=== PATIENT | male | born 1940 | race Caucasian/White ===

== ENCOUNTER 2019-11-26 07:25 | Outpatient (REF) | payer MEDICARE, SELFPAY ==
[2019-11-26 11:09] LABS: MANUAL DIFF FLAG NO
[2019-11-26 11:23] LABS: Basophils Absolute Auto 0.1 X10*3/uL (0.0-0.2); Basophils Percent Auto 0.6 % (0-2); Eosinophils Absolute Auto 0.1 X10*3/uL (0.0-0.4); Eosinophils Percent Auto 1.5 % (0-4); Hematocrit 37.4 % (42-52); Hemoglobin 12.5 g/dl (14.0-18.0); Imm Gran Abs Auto 0.04 X10*3/uL (0.00-0.03); Imm Gran Pct Auto 0.4 % (0.0-0.4); Lymphocytes Absolute Auto 2.3 X10*3/uL (1.2-4.9); Lymphocytes Percent Auto 24.7 % (20-40); Mean Corpuscular HGB Conc 33.4 g/dl (31.0-36.0); Mean Corpuscular Hemoglobin 32.9 pg (27.0-33.0); Mean Corpuscular Volume 98.4 fL (80-98); Mean Platelet Volume 10.7 fL (9.4-12.4); Monocytes Absolute Auto 0.9 X10*3/uL (0.1-1.2); Monocytes Percent Auto 9.4 % (2-11); Neutrophils Absolute Auto 5.9 X10*3/uL (2.0-8.3); Neutrophils Percent Auto 63.4 % (45-73); Platelet Count 366 X10*3/uL (160-400); Red Cell Distribution Width 13.2 % (11.0-16.0); White Blood Count 9.3 X10*3/uL (4.8-10.8)
[2019-11-26 11:37] LABS: Estimated Average Glucose 140 mg/dL; Hemoglobin A1c % 6.5 %
[2019-11-26 11:48] LABS: Alanine Aminotransferase 8 U/L (0-40); Albumin Level 4.2 g/dL (3.5-5.0); Alkaline Phosphatase 93 U/L (39-117); Anion Gap 13 (12-20); Aspartate Amino Transferase 15 U/L (5-37); Bilirubin Total 0.7 mg/dL (0.0-1.0); Blood Urea Nitrogen 30 mg/dL (9-16); Carbon Dioxide 25 mmol/L (22-29); Chloride 106 mmol/L (96-108); Cholesterol 102 mg/dL; Estimated Glomerular Filt Rate 47; Glucose Fasting 118 mg/dL (60-99); HDL Cholesterol 33 mg/dL; LDL Cholesterol Calculated 39 mg/dl; Magnesium 1.9 mg/dL (1.6-2.6); Potassium 4.4 mmol/l (3.3-5.1); Sodium 140 mmol/L (135-145); Total Protein 7.4 g/dL (6.5-8.0); Triglycerides 154 mg/dL; Uric Acid 5.1 mg/dL (3.4-7.0)
[2019-11-26 11:50] LABS: Glucose Urine UA NEG (NEG); Leukocyte Esterase Urine NEG (NEG); Nitrite Urine NEG (NEG); Specific Gravity - Urine 1.025 (1.005-1.025); Urine Blood NEG (NEG); Urine Ketones NEG (NEG); Urine Protein NEG (NEG-TRACE)
[2019-11-26 11:55] LABS: Appearance Urine CLEAR; Color Urine YELLOW; Thyroid Stimulating Hormone 2.05 mIU/mL (0.32-4.0); Vitamin D 25-OH Total 23.3 ng/mL (>30)
[2019-11-26 12:07] LABS: Creatinine Urine 125.35 mg/dL; Microalbum/Creatinine Ratio Ur 44.6 ug/mg cr
[2019-11-26 12:08] LABS: Creatinine Urine 125.49 mg/dL; Total Protein Urine Random 13 mg/dL (<12)
[2019-11-26 12:17] LABS: RBC Urine 0-2 /HPF (0); Squamous Epithelial Cell Urine 1+ /LPF; WBC Urine 0-2 /HPF (0-4)
== END 2019-11-26 07:26 | disposition home or self-care (01) ==
LOC: HO.HMGCLDS 07:25
PROVIDERS: PCP Internal Medicine; Visit Provider Internal Medicine
DX: I12.9 Hypertensive chronic kidney disease with stage 1 through stage 4 chronic kidney disease, or unspecified chronic kidney disease (principal); N18.30 Chronic kidney disease, stage 3 unspecified; R73.01 Impaired fasting glucose; E78.00 Pure hypercholesterolemia, unspecified; E55.9 Vitamin D deficiency, unspecified; E79.0 Hyperuricemia without signs of inflammatory arthritis and tophaceous disease
CPT/HCPCS: 36415; 80053; 80061; 81003; 81015; 82043; 82306; 83036; 83735; 84156; 84443; 84550; 85025

== ENCOUNTER 2020-03-12 10:57 | Outpatient (REF) | payer MEDICARE, SELFPAY ==
[2020-03-12 13:54] LABS: MANUAL DIFF FLAG NO
[2020-03-12 14:12] LABS: Basophils Absolute Auto 0.1 X10*3/uL (0.0-0.2); Basophils Percent Auto 0.6 % (0-2); Eosinophils Absolute Auto 0.1 X10*3/uL (0.0-0.4); Eosinophils Percent Auto 1.4 % (0-4); Hematocrit 38.4 % (42-52); Hemoglobin 12.7 g/dl (14.0-18.0); Imm Gran Abs Auto 0.03 X10*3/uL (0.00-0.03); Imm Gran Pct Auto 0.3 % (0.0-0.4); Lymphocytes Absolute Auto 2.3 X10*3/uL (1.2-4.9); Lymphocytes Percent Auto 26.1 % (20-40); Mean Corpuscular HGB Conc 33.1 g/dl (31.0-36.0); Mean Corpuscular Hemoglobin 32.2 pg (27.0-33.0); Mean Corpuscular Volume 97.5 fL (80-98); Mean Platelet Volume 10.6 fL (9.4-12.4); Monocytes Absolute Auto 0.8 X10*3/uL (0.1-1.2); Monocytes Percent Auto 8.7 % (2-11); Neutrophils Absolute Auto 5.5 X10*3/uL (2.0-8.3); Neutrophils Percent Auto 62.9 % (45-73); Platelet Count 331 X10*3/uL (160-400); Red Blood Count 3.94 X10*6/uL (4.60-5.80); Red Cell Distribution Width 13.1 % (11.0-16.0); White Blood Count 8.7 X10*3/uL (4.8-10.8)
[2020-03-12 14:22] LABS: Estimated Average Glucose 134 mg/dL; Hemoglobin A1c % 6.3 %
[2020-03-12 14:36] LABS: Alanine Aminotransferase 8 U/L (0-40); Albumin Level 4.1 g/dL (3.5-5.0); Alkaline Phosphatase 93 U/L (39-117); Anion Gap 15 (12-20); Aspartate Amino Transferase 16 U/L (5-37); Bilirubin Total 0.8 mg/dL (0.0-1.0); Blood Urea Nitrogen 24 mg/dL (9-16); Calcium 8.8 mg/dL (8.4-10.2); Carbon Dioxide 24 mmol/L (22-29); Chloride 106 mmol/L (96-108); Cholesterol 116 mg/dL; Estimated Glomerular Filt Rate 52; Glucose Fasting 101 mg/dL (60-99); HDL Cholesterol 35 mg/dL; LDL Cholesterol Calculated 58 mg/dl; Potassium 4.6 mmol/L (3.3-5.1); Sodium 140 mmol/L (135-145); Total Protein 7.4 g/dL (6.5-8.0); Triglycerides 119 mg/dL
[2020-03-12 14:48] LABS: Creatinine Urine 190.57 mg/dL
== END 2020-03-12 10:58 | disposition home or self-care (01) ==
LOC: HO.HMGCLDS 10:57
PROVIDERS: PCP Internal Medicine; Visit Provider Internal Medicine
DX: I10 Essential (primary) hypertension (principal); E78.00 Pure hypercholesterolemia, unspecified; R73.01 Impaired fasting glucose
CPT/HCPCS: 36415; 80053; 80061; 82043; 83036; 85025

== ENCOUNTER 2020-04-08 09:15 | Outpatient (REF) | payer MEDICARE, SELFPAY ==
[2020-04-08 11:18] LABS: MANUAL DIFF FLAG NO
[2020-04-08 11:41] LABS: Basophils Absolute Auto 0.1 X10*3/uL (0.0-0.2); Basophils Percent Auto 0.6 % (0-2); Eosinophils Absolute Auto 0.1 X10*3/uL (0.0-0.4); Eosinophils Percent Auto 1.4 % (0-4); Hematocrit 39.5 % (42-52); Hemoglobin 12.9 g/dl (14.0-18.0); Imm Gran Abs Auto 0.04 X10*3/uL (0.00-0.03); Imm Gran Pct Auto 0.4 % (0.0-0.4); Mean Corpuscular HGB Conc 32.7 g/dl (31.0-36.0); Mean Corpuscular Hemoglobin 31.7 pg (27.0-33.0); Mean Corpuscular Volume 97.1 fL (80-98); Mean Platelet Volume 10.4 fL (9.4-12.4); Monocytes Absolute Auto 0.8 X10*3/uL (0.1-1.2); Monocytes Percent Auto 8.3 % (2-11); Neutrophils Absolute Auto 6.9 X10*3/uL (2.0-8.3); Neutrophils Percent Auto 69.3 % (45-73); Platelet Count 357 X10*3/uL (160-400); Red Blood Count 4.07 X10*6/uL (4.60-5.80); Red Cell Distribution Width 13.2 % (11.0-16.0)
[2020-04-08 11:58] LABS: Albumin Level 4.2 g/dL (3.5-5.0); Anion Gap 13 (12-20); Blood Urea Nitrogen 21 mg/dL (9-16); Carbon Dioxide 27 mmol/L (22-29); Chloride 106 mmol/L (96-108); Estimated Glomerular Filt Rate 47; Magnesium 2.3 mg/dL (1.6-2.6); Phosphorus 2.6 mg/dL (2.7-4.5); Potassium 4.5 mmol/L (3.3-5.1); Sodium 141 mmol/L (135-145)
[2020-04-08 12:08] LABS: Vitamin D 25-OH Total 26.7 ng/mL (>30)
[2020-04-08 12:37] LABS: Glucose Urine UA NEG (NEG); Leukocyte Esterase Urine NEG (NEG); Nitrite Urine NEG (NEG); Urine Blood NEG (NEG); Urine Ketones NEG (NEG); Urine Protein 1+ MG/DL (NEG-TRACE)
[2020-04-08 12:40] LABS: Renal w Reflex Lab Use Only Order verified
[2020-04-08 12:41] LABS: Appearance Urine CLEAR; Color Urine YELLOW
[2020-04-08 12:43] LABS: Renal w Reflex-LAB USE ONLY Order Verified
[2020-04-08 12:58] LABS: RBC Urine 0-2 /HPF (0); Squamous Epithelial Cell Urine 2+ /LPF; WBC Urine 0 /HPF (0-4)
[2020-04-08 13:05] LABS: Creatinine Urine 109.07 mg/dL; Microalbum/Creatinine Ratio Ur 238.3 ug/mg cr; Protein/Creatinine Ratio, Ur 0.37 (<0.2); Total Protein Urine Random 40 mg/dL (<12)
[2020-04-10 12:01] LABS: Calcium (PTHI) 9.5 mg/dL (8.6-10.3); PTHI 85 pg/mL (14-64)
[2020-04-10 14:51] LABS: IgA 123 mg/dL (70-320); IgG 1874 mg/dL (600-1540); IgM 87 mg/dL (50-300)
[2020-04-10 16:02] LABS: Kappa, Serum 520 mg/dL (176-443); Kappa/Lambda Ratio, Serum 5.98 (1.29-2.55); Lambda, Serum 87 mg/dL (91-240)
== END 2020-04-08 09:16 | disposition home or self-care (01) ==
LOC: HO.HMGCLDS 09:15
PROVIDERS: PCP Internal Medicine; Visit Provider Internal Medicine Nephrology
DX: I12.9 Hypertensive chronic kidney disease with stage 1 through stage 4 chronic kidney disease, or unspecified chronic kidney disease (principal); N18.30 Chronic kidney disease, stage 3 unspecified; N28.9 Disorder of kidney and ureter, unspecified; R80.9 Proteinuria, unspecified; R73.01 Impaired fasting glucose; D64.9 Anemia, unspecified; E78.5 Hyperlipidemia, unspecified
CPT/HCPCS: 36415; 80051; 81001; 82040; 82043; 82306; 82310; 82565; 82784; 83735; 83883; 83970; 84100; 84156; 84520; 85025; 86334

== ENCOUNTER 2020-12-01 09:33 | Outpatient (REF) | payer MEDICARE, SELFPAY ==
[2020-12-01 11:27] LABS: MANUAL DIFF FLAG NO
[2020-12-01 11:37] LABS: Basophils Absolute Auto 0.1 X10*3/uL (0.0-0.2); Basophils Percent Auto 0.5 % (0-2); Eosinophils Absolute Auto 0.1 X10*3/uL (0.0-0.4); Eosinophils Percent Auto 1.5 % (0-4); Hematocrit 39.9 % (42-52); Hemoglobin 13.4 g/dl (14.0-18.0); Imm Gran Abs Auto 0.04 X10*3/uL (0.00-0.03); Imm Gran Pct Auto 0.4 % (0.0-0.4); Lymphocytes Absolute Auto 1.9 X10*3/uL (1.2-4.9); Lymphocytes Percent Auto 20.5 % (20-40); Mean Corpuscular HGB Conc 33.6 g/dl (31.0-36.0); Mean Corpuscular Hemoglobin 32.2 pg (27.0-33.0); Mean Corpuscular Volume 95.9 fL (80-98); Mean Platelet Volume 10.4 fL (9.4-12.4); Monocytes Absolute Auto 0.7 X10*3/uL (0.1-1.2); Monocytes Percent Auto 7.9 % (2-11); Neutrophils Absolute Auto 6.3 X10*3/uL (2.0-8.3); Neutrophils Percent Auto 69.2 % (45-73); Platelet Count 337 X10*3/uL (160-400); Red Blood Count 4.16 X10*6/uL (4.60-5.80); White Blood Count 9.2 X10*3/uL (4.8-10.8)
[2020-12-01 11:53] LABS: Albumin Level 4.1 g/dL (3.5-5.0); Anion Gap 13 (12-20); Blood Urea Nitrogen 23 mg/dL (9-16); Calcium 9.5 mg/dL (8.4-10.2); Carbon Dioxide 26 mmol/L (22-29); Chloride 105 mmol/L (96-108); Estimated Glomerular Filt Rate 46; Magnesium 2.1 mg/dL (1.6-2.6); Phosphorus 3.1 mg/dL (2.7-4.5); Potassium 5.2 mmol/L (3.3-5.1); Sodium 139 mmol/L (135-145)
[2020-12-01 11:56] LABS: Estimated Average Glucose 131 mg/dL; Hemoglobin A1c % 6.2 %
[2020-12-01 12:02] LABS: Alanine Aminotransferase 8 U/L (0-40); Albumin Level 4.1 g/dL (3.5-5.0); Alkaline Phosphatase 89 U/L (39-117); Anion Gap 12 (12-20); Aspartate Amino Transferase 15 U/L (5-37); Bilirubin Total 0.7 mg/dL (0.0-1.0); Blood Urea Nitrogen 23 mg/dL (9-16); Calcium 9.4 mg/dL (8.4-10.2); Carbon Dioxide 25 mmol/L (22-29); Chloride 106 mmol/L (96-108); Cholesterol 114 mg/dL; Estimated Glomerular Filt Rate 47; Glucose Fasting 112 mg/dL (60-99); HDL Cholesterol 34 mg/dL; LDL Cholesterol Calculated 58 mg/dl; Potassium 4.8 mmol/L (3.3-5.1); Sodium 138 mmol/L (135-145); Total Protein 7.6 g/dL (6.5-8.0); Triglycerides 110 mg/dL; Uric Acid 5.5 mg/dL (3.4-7.0)
[2020-12-01 12:19] LABS: Creatinine Urine 134.86 mg/dL; Microalbum/Creatinine Ratio Ur 252.1 ug/mg cr; Protein/Creatinine Ratio, Ur 0.37 (<0.2); Total Protein Urine Random 50 mg/dL (<12)
[2020-12-01 12:22] LABS: Vitamin D 25-OH Total 30.5 ng/mL (>30)
[2020-12-01 12:28] LABS: Thyroid Stimulating Hormone 2.21 uIU/mL (0.32-4.0)
[2020-12-02 12:46] LABS: PES - Abn Protein Band 1 0.8 g/dL (NONE DETECTED); PES-Abn Protein Band 2 0.5 g/dL (NONE DETECTED); Prot Elec - Albumin 4.2 g/dL (3.8-4.8); Prot Elec - Alpha1 0.3 g/dL (0.2-0.3); Prot Elec - Alpha2 0.8 g/dL (0.5-0.9); Prot Elec - Beta 1 0.5 g/dL (0.4-0.6); Prot Elec - Beta 2 0.3 g/dL (0.2-0.5); Prot Elec - Gamma 1.9 g/dL (0.8-1.7)
[2020-12-02 14:31] LABS: Calcium (PTHI) 9.3 mg/dL (8.6-10.3); PTHI 101 pg/mL (14-64)
[2020-12-16 01:42] LABS: Kappa, Serum 525 mg/dL (176-443); Kappa/Lambda Ratio, Serum 4.53 (1.29-2.55); Lambda, Serum 116 mg/dL (91-240)
== END 2020-12-01 09:34 | disposition home or self-care (01) ==
LOC: HO.HMGCLDS 09:33
PROVIDERS: PCP Internal Medicine; Visit Provider Internal Medicine Nephrology
DX: E79.0 Hyperuricemia without signs of inflammatory arthritis and tophaceous disease (principal); D47.2 Monoclonal gammopathy; R73.01 Impaired fasting glucose; I12.9 Hypertensive chronic kidney disease with stage 1 through stage 4 chronic kidney disease, or unspecified chronic kidney disease; N18.31 Chronic kidney disease, stage 3a; N20.0 Calculus of kidney; N25.0 Renal osteodystrophy; R80.1 Persistent proteinuria, unspecified
CPT/HCPCS: 36415; 80051; 80053; 80061; 81001; 82040; 82043; 82306; 82310; 82565; 83036; 83735; 83883; 83970; 84100; 84156; 84165; 84443; 84520; 84550; 85025; 87086

== ENCOUNTER 2021-07-20 06:55 | Outpatient (REF) | payer MEDICARE, SELFPAY ==
[2021-07-20 13:04] LABS: Anion Gap 12 (12-20); Blood Urea Nitrogen 23 mg/dL (9-16); Calcium 9.2 mg/dL (8.4-10.2); Carbon Dioxide 26 mmol/L (22-29); Chloride 105 mmol/L (96-108); Estimated Glomerular Filt Rate 50; Glucose Random 126 mg/dL (60-115); Potassium 4.7 mmol/L (3.3-5.1); Sodium 138 mmol/L (135-145)
[2021-07-20 13:18] LABS: Estimated Average Glucose 140 mg/dL; Hemoglobin A1c % 6.5 %
== END 2021-07-20 06:56 | disposition home or self-care (01) ==
LOC: HO.HMGCLDS 06:55
PROVIDERS: Visit Provider Internal Medicine
DX: R73.01 Impaired fasting glucose (principal); I10 Essential (primary) hypertension
CPT/HCPCS: 36415; 80048; 83036

== ENCOUNTER 2021-12-14 07:19 | Outpatient (REF) | payer MEDICARE, SELFPAY ==
[2021-12-14 11:22] LABS: Appearance Urine Clear; Color Urine Yellow; Glucose Urine UA Negative (Negative); Leukocyte Esterase Urine Negative (Negative); MANUAL DIFF FLAG NO; Nitrite Urine Negative (Negative); PH 5.5 (5.0-9.0); UMIC TRIGGER UA YES; Urine Blood Negative (Negative); Urine Ketones Negative (Negative); Urine Protein 30 (1+) mg/dL (Neg-Trace)
[2021-12-14 11:24] LABS: Bacteria Urine None Seen (None Seen); Hyaline Casts Urine 0-2 /LPF (0-2); RBC Urine 0-2 /HPF (0-2); Squamous Epithelial Cell Urine 0-2 /HPF (0-2); WBC Urine 0-5 /HPF (0-5)
[2021-12-14 11:28] LABS: Basophils Absolute Auto 0.1 X10*3/uL (0.0-0.2); Basophils Percent Auto 0.6 % (0-2); Eosinophils Absolute Auto 0.1 X10*3/uL (0.0-0.4); Eosinophils Percent Auto 1.6 % (0-4); Hematocrit 38.4 % (42.0-52.0); Hemoglobin 12.9 g/dl (14.0-18.0); Imm Gran Abs Auto 0.03 X10*3/uL (0.00-0.03); Imm Gran Pct Auto 0.4 % (0.0-0.4); Mean Corpuscular HGB Conc 33.6 g/dl (31.0-36.0); Mean Corpuscular Hemoglobin 32.8 pg (27.0-33.0); Mean Corpuscular Volume 97.7 fL (80.0-98.0); Mean Platelet Volume 10.1 fL (9.4-12.4); Monocytes Absolute Auto 0.8 X10*3/uL (0.1-1.2); Monocytes Percent Auto 9.2 % (2-11); Neutrophils Absolute Auto 5.6 x10*3/uL (2.0-8.3); Neutrophils Percent Auto 65.2 % (45-73); Platelet Count 358 X10*3/uL (160-400); Red Blood Count 3.93 X10*6/uL (4.60-5.80); White Blood Count 8.6 X10*3/uL (4.8-10.8)
[2021-12-14 12:02] LABS: Creatinine Urine 135.06 mg/dL; Microalbum/Creatinine Ratio Ur 133.2 ug/mg cr; Protein/Creatinine Ratio, Ur 0.21 (<0.2); Total Protein Urine Random 29 mg/dL (<12)
[2021-12-14 12:22] LABS: Alanine Aminotransferase 9 U/L (0-40); Albumin Level 4.1 g/dL (3.5-5.0); Alkaline Phosphatase 90 U/L (39-117); Anion Gap 16 (12-20); Aspartate Amino Transferase 14 U/L (5-37); Blood Urea Nitrogen 24 mg/dL (9-16); Calcium 9.2 mg/dL (8.4-10.2); Carbon Dioxide 22 mmol/L (22-29); Chloride 106 mmol/L (96-108); Cholesterol 100 mg/dL; Estimated Glomerular Filt Rate 43; Glucose Random 116 mg/dL (60-115); HDL Cholesterol 33 mg/dL; LDL Cholesterol Calculated 44 mg/dl; Potassium 4.6 mmol/L (3.3-5.1); Sodium 139 mmol/L (135-145); Total Protein 7.3 g/dL (6.5-8.0); Triglycerides 119 mg/dL
[2021-12-14 12:28] LABS: Estimated Average Glucose 143 mg/dL; Free T4 (Free Thyroxine) 1.15 ng/dL (0.71-1.85); Hemoglobin A1c % 6.6 %; Thyroid Stimulating Hormone 1.82 uIU/mL (0.32-4.0)
== END 2021-12-14 07:20 | disposition home or self-care (01) ==
LOC: HO.HMGCLDS 07:19
PROVIDERS: PCP Internal Medicine; Visit Provider Internal Medicine
DX: E78.00 Pure hypercholesterolemia, unspecified (principal); I10 Essential (primary) hypertension; R73.01 Impaired fasting glucose
CPT/HCPCS: 36415; 80053; 80061; 81001; 82043; 83036; 84156; 84439; 84443; 85025

== ENCOUNTER 2022-01-11 09:36 | Outpatient (REF) | payer MEDICARE, SELFPAY ==
[2022-01-11 11:24] LABS: MANUAL DIFF FLAG NO
[2022-01-11 11:38] LABS: Basophils Absolute Auto 0.1 X10*3/uL (0.0-0.2); Basophils Percent Auto 0.7 % (0-2); Eosinophils Absolute Auto 0.1 X10*3/uL (0.0-0.4); Eosinophils Percent Auto 1.3 % (0-4); Hematocrit 39.7 % (42.0-52.0); Imm Gran Abs Auto 0.04 X10*3/uL (0.00-0.03); Imm Gran Pct Auto 0.4 % (0.0-0.4); Lymphocytes Absolute Auto 2.3 X10*3/uL (1.2-4.9); Lymphocytes Percent Auto 25.2 % (20-40); Mean Corpuscular HGB Conc 32.7 g/dl (31.0-36.0); Mean Corpuscular Hemoglobin 32.3 pg (27.0-33.0); Mean Corpuscular Volume 98.8 fL (80.0-98.0); Mean Platelet Volume 10.5 fL (9.4-12.4); Monocytes Absolute Auto 0.8 X10*3/uL (0.1-1.2); Monocytes Percent Auto 8.5 % (2-11); Neutrophils Absolute Auto 5.8 x10*3/uL (2.0-8.3); Neutrophils Percent Auto 63.9 % (45-73); Platelet Count 372 X10*3/uL (160-400); Red Blood Count 4.02 X10*6/uL (4.60-5.80); Red Cell Distribution Width 13.1 % (11.0-16.0); White Blood Count 9.1 X10*3/uL (4.8-10.8)
[2022-01-11 11:43] LABS: Estimated Average Glucose 143 mg/dL; Hemoglobin A1c % 6.6 %
[2022-01-11 11:49] LABS: Anion Gap 12 (12-20); Blood Urea Nitrogen 29 mg/dL (9-16); Calcium 9.8 mg/dL (8.4-10.2); Carbon Dioxide 27 mmol/L (22-29); Chloride 106 mmol/L (96-108); Estimated Glomerular Filt Rate 40; Iron 112 mcg/dL (45-160); Percent Iron Saturation 38 % (15-50); Potassium 5.3 mmol/L (3.3-5.1); Sodium 140 mmol/L (135-145); Total Iron Binding Capacity 295 mcg/dL (228-428); Unsaturated Iron Binding 183 ug/dL
[2022-01-11 12:10] LABS: Creatinine Urine 119.26 mg/dL; Ferritin 214 ng/mL (20-250); Microalbum/Creatinine Ratio Ur 129.1 ug/mg cr
== END 2022-01-11 09:37 | disposition home or self-care (01) ==
LOC: HO.HMGCLDS 09:36
PROVIDERS: PCP Internal Medicine; Visit Provider Internal Medicine Nephrology
DX: I12.9 Hypertensive chronic kidney disease with stage 1 through stage 4 chronic kidney disease, or unspecified chronic kidney disease (principal); N18.31 Chronic kidney disease, stage 3a
CPT/HCPCS: 36415; 80051; 82043; 82310; 82565; 82728; 83036; 83540; 84520; 85025

== ENCOUNTER 2022-06-08 06:11 | Outpatient (REF) | payer MEDICARE, SELFPAY ==
[2022-06-08 11:14] LABS: MANUAL DIFF FLAG NO
[2022-06-08 11:38] LABS: Basophils Absolute Auto 0.1 X10*3/uL (0.0-0.2); Basophils Percent Auto 0.7 % (0-2); Eosinophils Absolute Auto 0.1 X10*3/uL (0.0-0.4); Eosinophils Percent Auto 1.2 % (0-4); Hematocrit 39.9 % (42.0-52.0); Hemoglobin 13.2 g/dl (14.0-18.0); Imm Gran Abs Auto 0.05 X10*3/uL (0.00-0.03); Imm Gran Pct Auto 0.5 % (0.0-0.4); Lymphocytes Absolute Auto 2.1 X10*3/uL (1.2-4.9); Lymphocytes Percent Auto 21.4 % (20-40); Mean Corpuscular HGB Conc 33.1 g/dl (31.0-36.0); Mean Corpuscular Hemoglobin 32.1 pg (27.0-33.0); Mean Corpuscular Volume 97.1 fL (80.0-98.0); Mean Platelet Volume 10.3 fL (9.4-12.4); Monocytes Absolute Auto 0.9 X10*3/uL (0.1-1.2); Monocytes Percent Auto 9.3 % (2-11); Neutrophils Absolute Auto 6.5 x10*3/uL (2.0-8.3); Neutrophils Percent Auto 66.9 % (45-73); Platelet Count 372 X10*3/uL (160-400); Red Blood Count 4.11 X10*6/uL (4.60-5.80); Red Cell Distribution Width 13.4 % (11.0-16.0); White Blood Count 9.7 X10*3/uL (4.8-10.8)
[2022-06-08 11:45] LABS: Estimated Average Glucose 137 mg/dL; Hemoglobin A1c % 6.4 %
[2022-06-08 12:09] LABS: Alanine Aminotransferase 7 U/L (0-40); Albumin Level 4.1 g/dL (3.5-5.0); Alkaline Phosphatase 87 U/L (39-117); Anion Gap 15 (12-20); Aspartate Amino Transferase 15 U/L (5-37); Blood Urea Nitrogen 32 mg/dL (9-16); Calcium 9.7 mg/dL (8.4-10.2); Carbon Dioxide 23 mmol/L (22-29); Chloride 108 mmol/L (96-108); Estimated Glomerular Filt Rate 46; Glucose Random 121 mg/dL (60-115); Potassium 4.7 mmol/L (3.3-5.1); Sodium 141 mmol/L (135-145); Total Protein 7.3 g/dL (6.5-8.0)
== END 2022-06-08 06:12 | disposition home or self-care (01) ==
LOC: HO.HMGCLDS 06:11
PROVIDERS: PCP Internal Medicine; Visit Provider Internal Medicine
DX: I12.9 Hypertensive chronic kidney disease with stage 1 through stage 4 chronic kidney disease, or unspecified chronic kidney disease (principal); E11.22 Type 2 diabetes mellitus with diabetic chronic kidney disease; N18.32 Chronic kidney disease, stage 3b; E55.9 Vitamin D deficiency, unspecified
CPT/HCPCS: 36415; 80053; 82306; 83036; 85025

== ENCOUNTER 2022-12-22 07:00 | Outpatient (REF) | payer MEDICARE, SELFPAY ==
[2022-12-22 11:20] LABS: MANUAL DIFF FLAG NO
[2022-12-22 11:25] LABS: Appearance Urine Clear; Color Urine Yellow; Glucose Urine UA Negative (Negative); Leukocyte Esterase Urine Negative (Negative); Nitrite Urine Negative (Negative); PH 5.5 (5.0-9.0); UMIC TRIGGER UA YES; Urine Blood Negative (Negative); Urine Ketones Negative (Negative); Urine Protein 30 (1+) mg/dL (Neg-Trace)
[2022-12-22 11:30] LABS: Bacteria Urine None Seen (None Seen); RBC Urine 0-2 /HPF (0-2); Squamous Epithelial Cell Urine 0-2 /HPF (0-2); WBC Urine 0-5 /HPF (0-5)
[2022-12-22 12:02] LABS: Alanine Aminotransferase 8 U/L (0-40); Albumin Level 3.9 g/dL (3.5-5.0); Alkaline Phosphatase 86 U/L (39-117); Anion Gap 11 (12-20); Aspartate Amino Transferase 18 U/L (5-37); Bilirubin Total 0.5 mg/dL (0.0-1.0); Blood Urea Nitrogen 28 mg/dL (9-16); Calcium 9.7 mg/dL (8.4-10.2); Carbon Dioxide 26 mmol/L (22-29); Chloride 109 mmol/L (96-108); Cholesterol 109 mg/dL (<200); Estimated Glomerular Filt Rate 44; Glucose Random 115 mg/dL (60-115); HDL Cholesterol 31 mg/dL (>40); LDL Cholesterol Calculated 59 mg/dL (<100); Potassium 4.4 mmol/L (3.3-5.1); Sodium 142 mmol/L (135-145); Total Protein 7.4 g/dL (6.5-8.0); Triglycerides 98 mg/dL (<150)
[2022-12-22 12:06] LABS: Basophils Absolute Auto 0.1 X10*3/uL (0.0-0.2); Eosinophils Absolute Auto 0.1 X10*3/uL (0.0-0.4); Eosinophils Percent Auto 1.6 % (0-4); Hematocrit 37.9 % (42.0-52.0); Hemoglobin 12.5 g/dl (14.0-18.0); Imm Gran Abs Auto 0.04 X10*3/uL (0.00-0.03); Imm Gran Pct Auto 0.5 % (0.0-0.4); Lymphocytes Absolute Auto 2.1 X10*3/uL (1.2-4.9); Lymphocytes Percent Auto 25.5 % (20-40); Mean Corpuscular Hemoglobin 32.6 pg (27.0-33.0); Mean Corpuscular Volume 98.7 fL (80.0-98.0); Mean Platelet Volume 10.4 fL (9.4-12.4); Monocytes Absolute Auto 0.8 X10*3/uL (0.1-1.2); Monocytes Percent Auto 9.7 % (2-11); Neutrophils Percent Auto 61.7 % (45-73); Platelet Count 353 X10*3/uL (160-400); Red Blood Count 3.84 X10*6/uL (4.60-5.80); Red Cell Distribution Width 13.4 % (11.0-16.0)
[2022-12-22 12:14] LABS: Estimated Average Glucose 134 mg/dL; Hemoglobin A1c % 6.3 % (<6.0)
[2022-12-22 12:22] LABS: Creatinine Urine 187.32 mg/dL; Microalbum/Creatinine Ratio Ur 94.4 ug/mg cr (<30)
== END 2022-12-22 07:01 | disposition home or self-care (01) ==
LOC: HO.HMGCLDS 07:00
PROVIDERS: PCP Internal Medicine; Visit Provider Internal Medicine
DX: I12.9 Hypertensive chronic kidney disease with stage 1 through stage 4 chronic kidney disease, or unspecified chronic kidney disease (principal); N18.31 Chronic kidney disease, stage 3a; R73.01 Impaired fasting glucose; E78.00 Pure hypercholesterolemia, unspecified
CPT/HCPCS: 36415; 80053; 80061; 81001; 82043; 82570; 83036; 84443; 85025

== ENCOUNTER 2023-01-05 06:12 | Outpatient (REF) | payer MEDICARE, SELFPAY ==
[2023-01-05 11:16] LABS: MANUAL DIFF FLAG NO
[2023-01-05 11:40] LABS: Basophils Absolute Auto 0.1 X10*3/uL (0.0-0.2); Basophils Percent Auto 0.9 % (0-2); Eosinophils Absolute Auto 0.2 X10*3/uL (0.0-0.4); Eosinophils Percent Auto 2.4 % (0-4); Hematocrit 37.1 % (42.0-52.0); Hemoglobin 12.3 g/dl (14.0-18.0); Imm Gran Abs Auto 0.09 X10*3/uL (0.00-0.03); Imm Gran Pct Auto 1.2 % (0.0-0.4); Lymphocytes Absolute Auto 2.2 X10*3/uL (1.2-4.9); Lymphocytes Percent Auto 27.8 % (20-40); Mean Corpuscular HGB Conc 33.2 g/dl (31.0-36.0); Mean Corpuscular Hemoglobin 32.7 pg (27.0-33.0); Mean Corpuscular Volume 98.7 fL (80.0-98.0); Mean Platelet Volume 10.7 fL (9.4-12.4); Monocytes Absolute Auto 1.1 X10*3/uL (0.1-1.2); Monocytes Percent Auto 13.5 % (2-11); Neutrophils Absolute Auto 4.2 x10*3/uL (2.0-8.3); Neutrophils Percent Auto 54.2 % (45-73); Platelet Count 363 X10*3/uL (160-400); Red Blood Count 3.76 X10*6/uL (4.60-5.80); Red Cell Distribution Width 13.8 % (11.0-16.0); White Blood Count 7.8 X10*3/uL (4.8-10.8)
[2023-01-05 11:46] LABS: Appearance Urine Clear; Color Urine Yellow; Glucose Urine UA Negative (Negative); Leukocyte Esterase Urine Negative (Negative); Nitrite Urine Negative (Negative); Urine Blood Negative (Negative); Urine Ketones Negative (Negative); Urine Protein Negative (Neg-Trace)
[2023-01-05 11:51] LABS: Bacteria Urine None Seen (None Seen); RBC Urine 0-2 /HPF (0-2); Squamous Epithelial Cell Urine 0-2 /HPF (0-2); WBC Urine 0-5 /HPF (0-5)
[2023-01-05 11:53] LABS: Albumin Level 3.9 g/dL (3.5-5.0); Anion Gap 11 (12-20); Blood Urea Nitrogen 39 mg/dL (9-16); Calcium 9.1 mg/dL (8.4-10.2); Carbon Dioxide 25 mmol/L (22-29); Chloride 108 mmol/L (96-108); Estimated Glomerular Filt Rate 38; Magnesium 2.2 mg/dL (1.6-2.6); Phosphorus 3.6 mg/dL (2.7-4.5); Potassium 4.5 mmol/L (3.3-5.1); Sodium 139 mmol/L (135-145)
[2023-01-05 12:09] LABS: Parathyroid Hormone Intact 181.9 pg/mL (8.7-77.1)
[2023-01-05 12:15] LABS: Vitamin D 25-OH Total 39.3 ng/mL (>30)
[2023-01-05 12:16] LABS: Iron 81 mcg/dL (45-160); Percent Iron Saturation 36 % (15-50); Total Iron Binding Capacity 227 mcg/dL (228-428); Unsaturated Iron Binding 146 ug/dL
[2023-01-05 12:19] LABS: Folate 10.5 ng/mL (> or = 4.0); Vitamin B12 359 pg/mL (200-900)
[2023-01-05 12:36] LABS: Ferritin 191 ng/mL (20-250)
[2023-01-05 12:40] LABS: Creatinine Urine 186.03 mg/dL; Microalbum/Creatinine Ratio Ur 31.7 ug/mg cr (<30); Protein/Creatinine Ratio, Ur 0.08 (<0.2); Total Protein Urine Random 14 mg/dL (<12)
== END 2023-01-05 06:13 | disposition home or self-care (01) ==
LOC: HO.HMGCLDS 06:12
PROVIDERS: Absent Provider Internal Medicine Nephrology; PCP Internal Medicine; Visit Provider Radiology Diagnostic Radiology
DX: E11.22 Type 2 diabetes mellitus with diabetic chronic kidney disease (principal); N18.31 Chronic kidney disease, stage 3a; R80.9 Proteinuria, unspecified; N25.0 Renal osteodystrophy; D64.9 Anemia, unspecified
CPT/HCPCS: 36415; 80051; 81001; 82040; 82043; 82306; 82310; 82565; 82570; 82607; 82728; 82746; 83540; 83735; 83970; 84100; 84156; 84520; 85025; 87086

== ENCOUNTER 2023-03-05 06:51 | Outpatient (REF) | payer MEDICARE, SELFPAY ==
[2023-03-05 12:14] LABS: Iron 89 mcg/dL (45-160); Percent Iron Saturation 37 % (15-50); Total Iron Binding Capacity 239 mcg/dL (228-428); Unsaturated Iron Binding 150 ug/dL
[2023-03-05 12:21] LABS: Ferritin 219 ng/mL (20-250)
== END 2023-03-05 06:52 | disposition home or self-care (01) ==
LOC: HO.HMGCLDS 06:51
PROVIDERS: PCP Internal Medicine; Visit Provider Internal Medicine
DX: D64.9 Anemia, unspecified (principal)
CPT/HCPCS: 36415; 82728; 83540

== ENCOUNTER 2023-04-02 07:52 | Outpatient (REF) | payer MEDICARE, SELFPAY ==
[2023-04-02 11:06] LABS: MANUAL DIFF FLAG NO
[2023-04-02 11:11] LABS: Basophils Absolute Auto 0.1 X10*3/uL (0.0-0.2); Basophils Percent Auto 0.7 % (0-2); Eosinophils Absolute Auto 0.2 X10*3/uL (0.0-0.4); Eosinophils Percent Auto 1.9 % (0-4); Hematocrit 37.9 % (42.0-52.0); Hemoglobin 12.7 g/dl (14.0-18.0); Imm Gran Abs Auto 0.04 X10*3/uL (0.00-0.03); Imm Gran Pct Auto 0.5 % (0.0-0.4); Lymphocytes Absolute Auto 1.7 X10*3/uL (1.2-4.9); Lymphocytes Percent Auto 21.3 % (20-40); Mean Corpuscular HGB Conc 33.5 g/dl (31.0-36.0); Mean Corpuscular Hemoglobin 32.7 pg (27.0-33.0); Mean Corpuscular Volume 97.7 fL (80.0-98.0); Mean Platelet Volume 10.1 fL (9.4-12.4); Monocytes Absolute Auto 0.8 X10*3/uL (0.1-1.2); Monocytes Percent Auto 9.7 % (2-11); Neutrophils Absolute Auto 5.3 x10*3/uL (2.0-8.3); Neutrophils Percent Auto 65.9 % (45-73); Platelet Count 373 X10*3/uL (160-400); Red Blood Count 3.88 X10*6/uL (4.60-5.80); Red Cell Distribution Width 13.8 % (11.0-16.0); White Blood Count 8.1 X10*3/uL (4.8-10.8)
[2023-04-02 11:24] LABS: Anion Gap 13 (12-20); Blood Urea Nitrogen 31 mg/dL (9-16); Calcium 9.8 mg/dL (8.4-10.2); Carbon Dioxide 26 mmol/L (22-29); Chloride 108 mmol/L (96-108); Estimated Glomerular Filt Rate 48; Glucose Random 134 mg/dL (60-115); Potassium 4.5 mmol/L (3.3-5.1); Sodium 142 mmol/L (135-145)
== END 2023-04-02 07:53 | disposition home or self-care (01) ==
LOC: HO.HMGCLDS 07:52
PROVIDERS: PCP Internal Medicine; Visit Provider Internal Medicine
DX: I10 Essential (primary) hypertension (principal)
CPT/HCPCS: 36415; 80048; 85025

== ENCOUNTER 2023-09-28 06:37 | Outpatient (REF) | payer MEDICARE, SELFPAY ==
[2023-09-28 10:34] LABS: Appearance Urine Clear; Color Urine Yellow; Glucose Urine UA Negative (Negative); Leukocyte Esterase Urine Negative (Negative); Nitrite Urine Negative (Negative); PH 5.5 (5.0-9.0); Specific Gravity - Urine 1.015 (1.005-1.025); UMIC TRIGGER UA YES; Urine Blood Negative (Negative); Urine Ketones Negative (Negative); Urine Protein 30 (1+) mg/dL (Neg-Trace)
[2023-09-28 10:37] LABS: Bacteria Urine None Seen (None Seen); Hyaline Casts Urine 0-2 /LPF (0-2); RBC Urine 0-2 /HPF (0-2); Squamous Epithelial Cell Urine 0-2 /HPF (0-2); WBC Urine 0-5 /HPF (0-5)
[2023-09-28 11:29] LABS: MANUAL DIFF FLAG NO
[2023-09-28 11:35] LABS: Basophils Absolute Auto 0.1 X10*3/uL (0.0-0.2); Basophils Percent Auto 0.6 % (0-2); Eosinophils Absolute Auto 0.1 X10*3/uL (0.0-0.4); Eosinophils Percent Auto 1.5 % (0-4); Hematocrit 36.3 % (42.0-52.0); Hemoglobin 12.6 g/dl (14.0-18.0); Imm Gran Abs Auto 0.03 X10*3/uL (0.00-0.03); Imm Gran Pct Auto 0.4 % (0.0-0.4); Lymphocytes Percent Auto 23.3 % (20-40); Mean Corpuscular HGB Conc 34.7 g/dl (31.0-36.0); Mean Corpuscular Hemoglobin 33.1 pg (27.0-33.0); Mean Corpuscular Volume 95.3 fL (80.0-98.0); Monocytes Absolute Auto 0.8 X10*3/uL (0.1-1.2); Monocytes Percent Auto 9.4 % (2-11); Neutrophils Absolute Auto 5.5 x10*3/uL (2.0-8.3); Neutrophils Percent Auto 64.8 % (45-73); Platelet Count 371 X10*3/uL (160-400); Red Blood Count 3.81 X10*6/uL (4.60-5.80); Red Cell Distribution Width 13.2 % (11.0-16.0); White Blood Count 8.5 X10*3/uL (4.8-10.8)
[2023-09-28 11:40] LABS: Estimated Average Glucose 128 mg/dL; Hemoglobin A1c % 6.1 % (<6.0)
[2023-09-28 12:41] LABS: Alanine Aminotransferase 9 U/L (0-40); Albumin Level 3.8 g/dL (3.5-5.0); Alkaline Phosphatase 97 U/L (39-117); Anion Gap 10 (12-20); Aspartate Amino Transferase 18 U/L (5-37); Bilirubin Total 0.7 mg/dL (0.0-1.0); Blood Urea Nitrogen 30 mg/dL (9-16); Calcium 9.5 mg/dL (8.4-10.2); Carbon Dioxide 25 mmol/L (22-29); Chloride 106 mmol/L (96-108); Cholesterol 99 mg/dL (<200); Estimated Glomerular Filt Rate 42; Glucose Random 127 mg/dL (60-115); HDL Cholesterol 35 mg/dL (>40); LDL Cholesterol Calculated 47 mg/dL (<100); Magnesium 1.6 mg/dL (1.6-2.6); Potassium 4.1 mmol/L (3.3-5.1); Sodium 137 mmol/L (135-145); Total Protein 7.2 g/dL (6.5-8.0); Triglycerides 88 mg/dL (<150)
[2023-09-28 13:02] LABS: Ferritin 257 ng/mL (20-250); Free T4 (Free Thyroxine) 0.99 ng/dL (0.71-1.85); Thyroid Stimulating Hormone 2.05 uIU/mL (0.32-4.0)
== END 2023-09-28 06:38 | disposition home or self-care (01) ==
LOC: HO.HMGCLDS 06:37
PROVIDERS: PCP Internal Medicine; Visit Provider Internal Medicine
DX: K21.9 Gastro-esophageal reflux disease without esophagitis (principal); E78.00 Pure hypercholesterolemia, unspecified; R73.01 Impaired fasting glucose; I12.9 Hypertensive chronic kidney disease with stage 1 through stage 4 chronic kidney disease, or unspecified chronic kidney disease; N18.32 Chronic kidney disease, stage 3b
CPT/HCPCS: 36415; 80053; 80061; 81001; 82728; 83036; 83735; 84439; 84443; 85025

== ENCOUNTER 2023-10-05 14:42 | Outpatient (REF) | payer MEDICARE, SELFPAY ==
[2023-10-05 16:08] LABS: Appearance Urine Clear; Color Urine Yellow; Glucose Urine UA Negative (Negative); Leukocyte Esterase Urine Negative (Negative); Nitrite Urine Negative (Negative); Specific Gravity - Urine 1.015 (1.005-1.025); UMIC TRIGGER UA YES; Urine Blood Negative (Negative); Urine Ketones Negative (Negative); Urine Protein 100 (2+) mg/dL (Neg-Trace)
[2023-10-05 16:10] LABS: Bacteria Urine None Seen (None Seen); RBC Urine 0-2 /HPF (0-2); Squamous Epithelial Cell Urine 0-2 /HPF (0-2); WBC Urine 0-5 /HPF (0-5)
[2023-10-05 16:17] LABS: Hematocrit 35.3 % (42.0-52.0); Hemoglobin 12.1 g/dl (14.0-18.0); Mean Corpuscular HGB Conc 34.3 g/dl (31.0-36.0); Mean Corpuscular Hemoglobin 32.9 pg (27.0-33.0); Mean Corpuscular Volume 95.9 fL (80.0-98.0); Mean Platelet Volume 9.9 fL (9.4-12.4); Platelet Count 375 X10*3/uL (160-400); Red Blood Count 3.68 X10*6/uL (4.60-5.80); Red Cell Distribution Width 13.4 % (11.0-16.0); White Blood Count 9.5 X10*3/uL (4.8-10.8)
[2023-10-05 17:00] LABS: Parathyroid Hormone Intact 104.9 pg/mL (8.7-77.1)
[2023-10-05 17:00] LABS: Creatinine Urine 96.83 mg/dL; Protein/Creatinine Ratio, Ur 0.75 (<0.2); Total Protein Urine Random 73 mg/dL (<12)
[2023-10-05 17:18] LABS: Microalbum/Creatinine Ratio Ur 565.9 ug/mg cr (<30)
[2023-10-05 17:41] LABS: Albumin Level 3.9 g/dL (3.5-5.0); Anion Gap 13 (12-20); Blood Urea Nitrogen 27 mg/dL (9-16); Calcium 9.5 mg/dL (8.4-10.2); Carbon Dioxide 24 mmol/L (22-29); Chloride 109 mmol/L (96-108); Estimated Glomerular Filt Rate 40; Magnesium 1.4 mg/dL (1.6-2.6); Phosphorus 3.1 mg/dL (2.7-4.5); Potassium 4.1 mmol/L (3.3-5.1); Sodium 142 mmol/L (135-145); Vitamin D 25-OH Total 36.5 ng/mL (>30)
== END 2023-10-05 14:43 | disposition home or self-care (01) ==
LOC: HO.HMGCLDS 14:42
PROVIDERS: PCP Internal Medicine; Referring Provider Internal Medicine; Visit Provider Internal Medicine Nephrology
DX: E11.22 Type 2 diabetes mellitus with diabetic chronic kidney disease (principal); N25.0 Renal osteodystrophy; I10 Essential (primary) hypertension; N18.32 Chronic kidney disease, stage 3b
CPT/HCPCS: 36415; 80051; 81001; 82040; 82043; 82306; 82310; 82565; 82570; 83735; 83970; 84100; 84156; 84520; 85027

== ENCOUNTER 2023-10-22 07:09 | Outpatient (REF) | payer MEDICARE, SELFPAY ==
[2023-10-22 11:20] LABS: Uric Acid 4.2 mg/dL (3.4-7.0)
== END 2023-10-22 07:10 | disposition home or self-care (01) ==
LOC: HO.HMGCLDS 07:09
PROVIDERS: PCP Internal Medicine; Visit Provider Internal Medicine
DX: Z87.39 Personal history of other diseases of the musculoskeletal system and connective tissue (principal)
CPT/HCPCS: 36415; 84550

== ENCOUNTER 2023-12-13 13:18 | Outpatient (REF) | payer MEDICARE, SELFPAY ==
[2023-12-13 16:43] LABS: Anion Gap 14 (12-20); Blood Urea Nitrogen 33 mg/dL (9-16); Carbon Dioxide 22 mmol/L (22-29); Chloride 106 mmol/L (96-108); Estimated Glomerular Filt Rate 36; Magnesium 2.2 mg/dL (1.6-2.6); Potassium 4.4 mmol/L (3.3-5.1); Sodium 138 mmol/L (135-145)
[2023-12-15 22:38] LABS: IgA 116 mg/dL (70-320); IgG 1959 mg/dL (600-1540); IgM 90 mg/dL (50-300)
[2023-12-19 15:07] LABS: Kappa, Serum 537 mg/dL (176-443); Kappa/Lambda Ratio, Serum 7.07 (1.29-2.55); Lambda, Serum 76 mg/dL (91-240)
== END 2023-12-13 13:19 | disposition home or self-care (01) ==
LOC: HO.HMGCLDS 13:18
PROVIDERS: PCP Internal Medicine; Visit Provider Internal Medicine Nephrology
DX: N18.32 Chronic kidney disease, stage 3b (principal)
CPT/HCPCS: 36415; 80051; 82565; 82784; 83735; 83883; 84520; 86334

== ENCOUNTER 2024-01-09 11:12 | Outpatient (REF) | payer MEDICARE, SELFPAY ==
[2024-01-09 13:19] LABS: MANUAL DIFF FLAG NO
[2024-01-09 13:28] LABS: Basophils Absolute Auto 0.1 X10*3/uL (0.0-0.2); Basophils Percent Auto 0.7 % (0-2); Eosinophils Absolute Auto 0.1 X10*3/uL (0.0-0.4); Eosinophils Percent Auto 0.6 % (0-4); Hematocrit 39.8 % (42.0-52.0); Hemoglobin 13.1 g/dl (14.0-18.0); Imm Gran Abs Auto 0.04 X10*3/uL (0.00-0.03); Imm Gran Pct Auto 0.4 % (0.0-0.4); Lymphocytes Absolute Auto 2.1 X10*3/uL (1.2-4.9); Lymphocytes Percent Auto 21.6 % (20-40); Mean Corpuscular HGB Conc 32.9 g/dl (31.0-36.0); Mean Corpuscular Hemoglobin 32.1 pg (27.0-33.0); Mean Corpuscular Volume 97.5 fL (80.0-98.0); Monocytes Absolute Auto 0.8 X10*3/uL (0.1-1.2); Monocytes Percent Auto 8.4 % (2-11); Neutrophils Absolute Auto 6.5 x10*3/uL (2.0-8.3); Neutrophils Percent Auto 68.3 % (45-73); Platelet Count 378 X10*3/uL (160-400); Red Blood Count 4.08 X10*6/uL (4.60-5.80); Red Cell Distribution Width 14.1 % (11.0-16.0); White Blood Count 9.5 X10*3/uL (4.8-10.8)
[2024-01-09 14:05] LABS: Estimated Average Glucose 128 mg/dL; Hemoglobin A1C 149.5082 umol/L; Hemoglobin A1c % 6.1 % (<6.0); Total Hemoglobin (HGBA1C) 3422.4586 umol/L
[2024-01-09 14:21] LABS: Alanine Aminotransferase 7 U/L (0-40); Albumin Level 4.2 g/dL (3.5-5.0); Alkaline Phosphatase 77 U/L (39-117); Anion Gap 12 (12-20); Aspartate Amino Transferase 25 U/L (5-37); Bilirubin Total 0.9 mg/dL (0.0-1.0); Blood Urea Nitrogen 35 mg/dL (9-16); Calcium 9.8 mg/dL (8.4-10.2); Carbon Dioxide 24 mmol/L (22-29); Chloride 105 mmol/L (96-108); Estimated Glomerular Filt Rate 35; Glucose Random 114 mg/dL (60-115); Iron 133 mcg/dL (45-160); Magnesium 2.1 mg/dL (1.6-2.6); Percent Iron Saturation 49 % (15-50); Potassium 4.6 mmol/L (3.3-5.1); Sodium 136 mmol/L (135-145); Total Iron Binding Capacity 270 mcg/dL (228-428); Unsaturated Iron Binding 137 ug/dL
[2024-01-09 14:39] LABS: Ferritin 269 ng/mL (20-250); Free T4 (Free Thyroxine) 1.11 ng/dL (0.71-1.85); Thyroid Stimulating Hormone 1.98 uIU/mL (0.32-4.0)
[2024-01-09 15:00] LABS: Folate 13.4 ng/mL (> or = 4.0); Prostate Specific Antigen 0.88 ng/mL (<0.05-4.0); Vitamin B12 303 pg/mL (200-900)
== END 2024-01-09 11:13 | disposition home or self-care (01) ==
LOC: HO.HMGCLDS 11:12
PROVIDERS: PCP Internal Medicine; Referring Provider Internal Medicine Nephrology; Visit Provider Internal Medicine
DX: K21.9 Gastro-esophageal reflux disease without esophagitis (principal); D64.9 Anemia, unspecified; I10 Essential (primary) hypertension; R35.0 Frequency of micturition; Z12.5 Encounter for screening for malignant neoplasm of prostate; R73.01 Impaired fasting glucose; R63.4 Abnormal weight loss
CPT/HCPCS: 36415; 80053; 82607; 82728; 82746; 83036; 83540; 83735; 84153; 84439; 84443; 85025

== ENCOUNTER 2024-03-13 09:13 | Outpatient (REF) | payer MEDICARE, SELFPAY ==
--- OUTSIDE RECORDS SUMMARY | 2024-03-13 09:40 | XMS_ITS | Continuity of Care Document ---
Author Organization [facility] [place] [address] [facility] [place] [address]- Care Team Providers Care Clinical Mental Health Counselor Name Role Phone Erasmo Britt MD Primary Care Physician Encounter 03/05/24 - 03/12/24 [facility] [address], [address] [place] [address]- Attending Physician: Chris Abreu MD Admitting Physician: Chris Abreu MD Referring Physician: Chris Abreu MD Encounter Type: OutPatient One Time Allergies, Adverse Reactions, Alerts No Known Allergies Medications allopurinol 100 mg oral tablet 100 mg, 1, tablet, By Mouth, Daily, # 30 tablet, Refills 0, Maintenance, 07/30/16 8:00:41 AM EDT Start Date: 07/30/16 Status: Ordered Quantity: 30.0 Unit: tablet Repeat number: 1 atenolol 25 mg oral tablet 25 mg, 1, tablet, By Mouth, Daily, # 30 tablet, Refills 0, Maintenance, 09/22/15 8:34:12 AM EDT Start Date: 09/22/15 Status: Ordered Quantity: 30.0 Unit: tablet Repeat number: 1 atorvastatin 40 mg oral tablet 1 tablet = 40 mg, By Mouth, Daily, # 30 tablet, 0 Refills, Maintenance, Tablet Start Date: 09/22/15 Status: Ordered Quantity: 30.0 Unit: tablet Repeat number: 1 gabapentin 300 mg oral capsule 300 mg, 1, capsule, By Mouth, Daily at bedtime, # 30 capsule, Refills 2, Tot. Refills 2, Maintenance, 11/03/15 12:00:43 PM EDT, Route to Pharmacy Electronically, [facility] Start Date: 11/03/15 Stop Date: 02/01/16 Status: Ordered Quantity: 30.0 Unit: capsule Repeat number: 3 Neurontin 100 mg oral capsule See Instructions, TAKE 1 CAPSULE IN THE AM AND 1 CAPSULE IN THE AFTERNOON, # 60 capsule, Refills 2,Tot. Refills 2, Maintenance, 11/03/15 11:58:07 AM EDT, Instructions Replace Required Details, Route to Pharmacy Electronically, [facility] Start Date: 11/03/15 Status: Ordered Quantity: 60.0 Unit: capsule Repeat number: 3 quinapril 40 mg oral tablet 1 tablet = 40 mg, By Mouth, Daily, # 30 tablet, 0 Refills, Maintenance, 09/22/15 8:34:30 AM EDT, Tablet Start Date: 09/22/15 Status: Ordered Quantity: 30.0 Unit: tablet Repeat number: 1 Results Radiology Reports * Exam Date Time Procedure Performing Provider Status 03/05/24 9:57 AM Chest 2 Views Frontal and Lat Freida Botello; Auth (Verified) Notes: (Chest 2 Views Frontal and Lat) Reason For Exam: rales 1/3 up chest wall left side RESULT: Chest 2 Views Frontal and Lat Chest 2 Views Frontal and Lat Reason: rales 1 3 up chest wall left side COMPARISON: None. FINDINGS: LINES AND TUBES: None. LUNGS AND PLEURA: Clear lungs. Normal pulmonary vascularity. No pleural effusion. No pneumothorax. HEART, MEDIASTINUM AND DOMITILA: Heart is normal in size. Aortic arch atherosclerosis. BONES AND SOFT TISSUES: No acute abnormality. IMPRESSION: No acute abnormality. WSN: [id number] Ordering Physician: Chris Abreu Dictated By: Yisel Maki MD Dictated Date/Time: 03/05/24 9:59 am Reviewed By: Yisel Maki MD Signed By: Yisel Maki MD Signed Date/Time: 03/05/24 9:59 am Transcribed By: ELINOR Transcribed Date/Time: 03/05/24 9:59 am Patient Care team information Care Team Personnel Name: Erasmo Britt MD Position: [facility] Outreach Member Role: PCP Address: [address] [place] [address] Internal Medicine [address] Telecom: Care Team Related Persons Name: IDA LEWIS Insurance Providers Guarantor name: ARTEMIO LEWIS Health Plan Information #: 1 Payer: MEDICARE PART B OUTPT Member Number: [id number] Policy Number: NA Group Number: [id number] Health Plan Information #: 2 Payer: MEDICARE PART B OUTPT Member Number: [id number] Policy Number: NA Group Number: [id number]
--- OUTSIDE RECORDS SUMMARY | 2024-03-13 09:40 | XMS_ITS | Clinical Summary ---
Author Organization [facility] Facility Address [address] [address] Care Team Providers Care Materials Clerk Name Role Phone Erasmo Britt MD Primary Care Provider [phone] Allergies Active Allergy Reactions Criticality Noted Date Comments Chlorthalidone Other (see comments) 07/22/2021 Moxifloxacin Other (see comments) 03/27/2020 Sildenafil Other (see comments) 03/27/2020 Medications atorvastatin (LIPITOR) 40 MG tablet Take 1 tablet by mouth 1 (one) time each day Active atenolol (TENORMIN) 25 MG tablet Take 25 mg by mouth 1 (one) time each day Active allopurinol (ZYLOPRIM) 100 MG tablet Take 100 mg by mouth 1 (one) time each day Active Dapagliflozin Propanediol (Farxiga) 10 MG tablet Take 10 mg by mouth 1 (one) time each day in the morning 90 tablet 3 01/13/2022 Active omeprazole (PriLOSEC) [address] capsule 01/03/2023 Active lisinopril 20 MG tablet TAKE ONE TABLET BY MOUTH EVERY DAY 90 tablet 3 07/12/2023 Active ergocalciferol 1.25 MG (54681 UT) capsule TAKE ONE CAPSULE BY MOUTH ONCE A WEEK 9 capsule 3 08/24/2023 Active calcitriol (ROCALTROL) 0.25 MCG capsule TAKE ONE CAPSULE BY MOUTH EVERY OTHER DAY 45 capsule 3 01/08/2024 Active Active Problems Problem Noted Date Diagnosed Date Stage 3b chronic kidney disease 01/12/2023 Type 2 diabetes mellitus wit h diabetic chronic kidney disease 01/13/2022 Renal osteodystrophy 04/22/2020 Anemia 03/27/2020 Stage 3a chronic kidney disease 03/27/2020 Disorder of kidney and/or ureter 03/27/2020 Essential hypertension 03/27/2020 Proteinuria 03/27/2020 Renal stone 05/06/2017 Resolved Problems Problem Noted Date Diagnosed Date Resolved Date Benign monoclonal gammopathy 04/27/2020 10/20/2020 Hyperlipidemia 03/27/2020 10/20/2020 Impaired fasting glycemia 03/27/2020 Disorder of central nervous system 05/06/2017 10/20/2020 Fatigue 05/06/2017 10/20/2020 Gastroesophageal reflux disease 05/06/2017 10/20/2020 Gouty arthritis of left knee 05/06/2017 10/20/2020 Hyperuricemia 05/06/2017 10/20/2020 Male erectile disorder 05/06/201710/20 MRI scan abnormal 05/06/2017 10/20/2020 Nocturia 05/06/2017 10/20/2020 Polyp of colon 05/06/2017 10/20/2020 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 [address] [place] [address] Rajinder Cody MD from Last 3 Months Immunizations Name Administration Dates Next Due Influenza Split High Dose Pr eservative Free IM 12/01/2018,11/28/2017,11/20/2015,11/05,12/12/2012 Influenza TIV (IM) 2011,01/06/2011 Influenza, Unspecified 11/12/2019,07/11/2007 Pneumococcal Conjugate 13-Valent 11/04/2014 Pneumococcal Polysaccharide 09/09/2006 Td, Unspecified 07/11/2007 Zoster 05/25/2011 Family History Medical History Relation Comments Kidney disease Sibling Relation Status Comments Father Mother Sibling Social History Tobacco Use Types Packs/Day Years Used Date Smoking Tobacco: Former Cigarettes Q uit: 02/13/1977 Comments:Smoking History Inf o:Every day Alcohol Use Standard Drinks/Week Comments Yes 0 (1 standard drink = 0.6 oz pure alcohol) Alcoholic Drinks/day: Occasional social drink Sex and Gender Information Value Date Recorded Sex Assigned at Not on file Legal Sex Male 4:56 PM EST Gender Identity Not on file Sexual Orientation Not on file Last Filed Vital Signs Vital Sign Reading Time Taken Comments Blood Pressure 119/62 10/12/2023 4:04 PM EDT Pulse 62 10/12/2023 4:04 PM EDT Temperature - - Respiratory Rate - - Oxygen Saturation 97% 10/12/2023 4:04 PM EDT Inhaled Oxygen Concentration - - Weight 87.4 kg (192 lb 9.6 oz) 10/12/2023 4:04 P M EDT Height 172.7 cm (5' 8 ) 10/21/2020 2:00 PM EDT Body Mass Index 29.28 10/21/2020 2:00 PM EDT Plan of Treatment Upcoming Encounters Date Type Department Care Team (Late st Contact Info) Description 04/24/2024 3:00 PM EDT [facility] [address] [address] Rajinder Cody MD [address] [address] Health Maintenance Due Date Last Done Comments Diabetes: Ophthalmology Exam 01/13/2022 Diabetes: Pedal Pulse Checked 01/13/2022 Diabetes: Sensory Foot Exam 01/13/2022 Diabetes: Visual Foot Exam 01/13/2022 Diabetes: Hemoglobin A1C 04/11/2022 022, 04/15/2021, 01/16/2019 Influenza Vaccine (#1) 2023 0, 12/01/2018, 11/28/2017, Additional history exists Pneumococcal Vaccine: 65+ Years Completed 12/04/2019, 11/04/2014, 09/09/2006 Hepatitis B Vaccine Aged Out No longe r eligible based on patient's age to complete this topic Procedures Procedure Name Priority Date/Time Associated Diagnosis Comments KAPPA/LAMBDA LIGHT CHAINS, SERUM Routine 12/13/2023 4:10 PM EST CREATININE, BLOOD Routine 12/13/2023 4:1 0 PM EST BUN Routine 12/13/2023 4:10 PM EST ELECTROLYTE PANEL Routine 12/13/2023 4:1 0 PM EST IMMUNOFIXATION ELECTROPHORESIS Routine 12/13/2023 4:10 PM EST Stage 3b chronic kidney disease (HCC) MAGNESIUM Routine 12/13/2023 4:10 PM EST Stage 3b chronic kidney disease (HCC) HEMOGLOBIN A1C Routine 01/11/2022 11:21 AM EST Stage 3a chronic kidney disease (HCC) Essential hypertension from Last 3 Months or Most Recently Relevant to Health Maintenance Results * (ABNORMAL) Creatinine (12/13/2023 4:10 PM EST) Creatinine Serum 1.83(H) 0.5 - 1.4 mg/dL See order comments eGFR 36 See order comments Comment: NOTE: ??For -[place]gent[place] individuals, multiply the result ? by 1.210. Chronic Kidney Disease: ??Estimated GFR < 60 mL/min/1.73m2 Severe Kidney Disease: ??Estimated GFR < 15 mL/min/1.73m2 12/13/2023 4:10 PM EST 12/13/2023 4:10 PM EST us Rajinder Cody MD LAB BLOOD ORDERABLES Final Re sult [facility] See order comments [place] [address] * (ABNORMAL) [place]/Lambda Light Chains, Serum (12/13/2023 4:10 PM EST) [place] light chains free in Serum 537(A) 176 - 443 mg/dL See order comments Lambda Light Chain, Free,Serum 76(A) 91 - 240 mg/dL See order comments [place]/Lambda LC Ratio 7.07(A) 1.29 - 2.55 See order comments Comment: This assay provides a measurement of the total kappa and the total lambda light chains, ie., the amount of free (unattached) light chain in circulation and the amount of light chain linked to heavy chain in intact immunoglobulin molecules. Assays for serum free light chain only, kappa and lambda with ratio, may be more useful in evaluating and managing light chain gammopathies including those associated with myeloma, lymphoproliferative disorders, and amyloidosis. THIS TEST WAS PERFORMED AT: [facility] [address] [place], [place] ??[phone] SABRINA CARRERA MD,PHD,PAYAL 12/13/2023 4:10 PM EST 12/13/2023 4:10 PM EST Rajinder Cody MD LAB [id number] SOLICITED RESULTS Final Result [place] See order comments [place] [address] * (ABNORMAL) Immunofixation electrophoresis (12/13/2023 4:10 PM EST) Pathologist [facility] IgG 1,959(A) 600 - 1,540 mg/dL See order comments IgA 116 70 - 320 mg/dL See order comments IgM 90 50 - 300 mg/dL See order comments Comment: THIS TEST WAS PERFORMED AT: [facility] [address] [place] [address] ??[phone] NELLI MIDDLETON MD Interpretation SEE NOTE See o rder comments Comment:Two IgG kappa monocl onal bands present. Blood (Blood, Venous) 12/13/2023 4:10 PM EST 12/13/2023 4:10 PM EST us Rajinder Cody MD LAB BLOOD ORDERABLES Final Re sult Performing Organization Address [facility] Phone Number [place] See order comments [place] [address] * (ABNORMAL) BUN (12/13/2023 4:10 PM EST) BUN 33(H) 9 - 16 mg/dL See order comments 12/13/2023 4:10 PM EST 12/13/2023 4:10 PM EST us Rajinder Cody MD LAB BLOOD ORDERABLES Final Re sult Performing Organization Address [facility] Phone Number [place] See order comments [place] [address] * Magnesium (12/13/2023 4:10 PM EST) Magnesium 2.2 1.6 - 2.6 mg/dL See order comments Blood (Blood, Venous) 12/13/2023 4:10 PM EST 12/13/2023 4:10 PM EST us Rajinder Cody MD LAB BLOOD ORDERABLES Final Re sult Performing Organization Address [facility] Phone Number [place] See order comments [place] [address] * Electrolyte panel (12/13/2023 4:10 PM EST) Sodium 138 135 - 145 mmol/L See order comments Potassium 4.4 3.3 - 5.1 mmol/L See order comments Comment:Slight Hemolysis.Int erpret result with caution. Chloride 106 96 - 108 mmol/L See order comments Bicarbonate (CO2) 22 22 - 29 mmol/L See order comments Anion Gap 14 12 - 20 See order comments 12/13/2023 4:10 PM EST 12/13/2023 4:10 PM EST us Rajinder Cody MD LAB BLOOD ORDERABLES Final Re sult Performing Organization Address [facility] Phone Number [place] See order comments [place] [address] * Hemoglobin A1c (01/11/2022 11:21 AM EST) Hemoglobin A1C 6.6 % DIXIE Comment: ?Hemoglobin A1C Reference Range ? Adults: ??4.8 - 6.0 % ? Non diabetic: ??< 6.0 % ? Goal: ??< 7.0 % Additional Action Suggested: ??> 8.0 % Note: ??Hemoglobin A1c results are invalid for patients ? with abnormal amounts of HbF. ??Blood transfusions ? may impact the HbA1c concentration in the patient ? sample. Estimated Average Glucose 143 mg/dL DIXIE Comment: eAG = Estimated average glucose which is %A1C expressed as average glucose, using the formula of the [id number] Average Glucose study (ADAG), Diabetes Care, Vol.31,#8, Sep. 2007 Blood (Blood, Venous) 01/11/2022 11:21 AM EST 01/11/2022 11:21 AM EST us Rajinder Cody MD LAB BLOOD ORDERABLES Final Re sult [facility] from Last 3 Months or Most Recently Relevant to Health Maintenance Insurance [facility] MEDICARE [facility] MEDICARE Care Teams Materials Clerk Relationship Specialty Start Date End Date Erasmo Britt MD [address] [place] [address] PCP - General 02/18/20
--- OUTSIDE RECORDS SUMMARY | 2024-03-13 09:40 | XMS_ITS | Encounter Summary ---
Author Organization [facility] Address [address] [address] Phone Care Team Providers Care Director Of Analytical Development Name Role Phone Erasmo Britt MD Primary Care Provider [phone] Encounter Details Date Type Department Care Team (Latest Contact Info) Description 11/22/2023 Office Communication [facility] [address] [phone] Rajinder Cody MD [address] [address] Stage 3b chronic kidney disease (HCC) (Primary Dx) Social History Tobacco Use Types Packs/Day Years [...] on file Sexual Orientation Not on file documented as of this encounter Miscellaneous Notes * Telephone Encounter - Rajinder Cody MD - 11/22/2023 10:15 AM EDT Pls send lab slip to patient documented in this encounter Plan of Treatment Upcoming Encounters Date Type Department Care Team (Late st Contact Info) Description 04/24/2024 3:00 PM EDT Office Visit [facility] [address] [address] Rajinder Cody MD [address] [address] Scheduled Orders Name Type Priority Associated Diagnoses Orde r Schedule Renal function panel Lab Routine Stage 3b chronic kidney disease (HCC) Expected: 11/29/2023, Expires: 12/22/2024 Free serum light chains Lab Routine Stage 3b chronic kidney disease (HCC) Expected: 11/29/2023, Expires: 12/22/2024 documented as of this encounter Results * (ABNORMAL) Immunofixation electrophoresis (12/13/2023 4:10 PM EST) IgG 1,959(A) 600 - 1,540 mg/dL See order comments IgA 116 70 - 320 mg/dL See order comments IgM 90 50 - 300 mg/dL See order comments Comment: THIS TEST WAS PERFORMED AT: [facility] [address] [place] [address] ??[phone] NELLI MIDDLETON MD Interpretation SEE NOTE See o rder comments Comment:Two IgG kappa monocl onal bands present. Blood (Blood, Venous) 12/13/2023 4:10 PM EST 12/13/2023 4:10 PM EST Rajinder Cody MD LAB BLOOD ORDERABLES Final Re sult [place] See order comments [place] [address] * Magnesium (12/13/2023 4:10 PM EST) Magnesium 2.2 1.6 - 2.6 mg/dL See order comments Blood (Blood, Venous) 12/13/2023 4:10 PM EST 12/13/2023 4:10 PM EST Rajinder Cody MD LAB BLOOD ORDERABLES Final Re sult [place] See order comments [place] [address] documented in this encounter Visit Diagnoses Diagnosis Stage 3b chronic kidney disease (HCC)- Primary documented in this encounter Care Teams Director Of Analytical Development Relationship Specialty Start Date End Date Erasmo Britt MD [address] [place] [address] PCP - General 02/18/20 documented as of this encounter
--- OUTSIDE RECORDS SUMMARY | 2024-03-13 09:40 | XMS_ITS | Clinical Summary ---
Author Organization [facility] Address [address] [place] [address] Care Team Providers Care County Attorney Name Role Phone Unavailable Primary Care Provider Unavailabl e Social History Tobacco Use Types Packs/Day Years Used Date Smoking Tobacco: Never Assessed Sex and Gender Information Value Date Recorded Sex Assigned at Not on file Gender Identity Not on file Sexual Orientation Not on file Plan of Treatment Health Maintenance Due Date Last Done Comments DTaP,Tdap,and Td Vaccines (1 - Tdap) 11/26/1959 Zoster Vaccines (1 of 2) 1990 Pneumococcal Vaccine: 65+ Ye ars (1 of 1 - PCV) 2005 RSV Immunization Patients 60 + Years Old (1 - 1-dose 75+ series) 11/26/2015 COVID-19 Vaccine ( - 2023-2 5 season) 2023 Influenza Vaccine (#1) 2023 HIB Vaccines Aged Out No longer eligi ble based on patient's age to complete this topic HPV Vaccines Aged Out No longer eligi ble based on patient's age to complete this topic Hepatitis A Vaccines Aged Out No long er eligible based on patient's age to complete this topic Hepatitis B Vaccines Aged Out No long er eligible based on patient's age to complete this topic IPV Vaccines Aged Out No longer eligi ble based on patient's age to complete this topic MMR Vaccines Aged Out No longer eligi ble based on patient's age to complete this topic Meningococcal ACWY Vaccine Aged Out N o longer eligible based on patient's age to complete this topic RSV Immunization Patients Un aramis 20 months Aged Out No longer eligible b ased on patient's age to complete this topic Varicella Vaccines Aged Out No longer eligible based on patient's age to complete this topic
--- OUTSIDE RECORDS SUMMARY | 2024-03-13 09:40 | XMS_ITS | Encounter Summary ---
Author Organization [facility] Address [address] [facility] [address] [place] [address] Phone Care Team Providers Care Visual Display Manager Name Role Phone Erasmo Britt MD Primary Care Provider [phone] Reason for Visit * Reason Comments Med Refill Encounter Details Date Type Department Care Team (Late Contact Info) Description 12/08/2020 Refill [facility] [address] [facility] [address] [place] [address] Thien Jones MD Social History Tobacco Use Types Packs/Day Years [...] on file documented as of this encounter Plan of Treatment Upcoming Encounters Date Type Department Care Team (Late st Contact Info) Description 04/24/2024 3:00 PM EDT Office Visit [facility] [address] [facility] [address] [place] [address] Rajinder Cody MD [address] [facility] [address] [place] [address] documented as of this encounter Visit Diagnoses Not on filedocumented in this encounter Care Teams Visual Display Manager Relationship Specialty Start Date End Date Erasmo Britt MD [address] [place] [address] PCP - General 02/18/20 documented as of this encounter
--- OUTSIDE RECORDS SUMMARY | 2024-03-13 09:40 | XMS_ITS | Encounter Summary ---
Author Organization [facility] Address [address] [facility] [address] [place] [address] Phone Care Team Providers Care Patch Driller Name Role Phone Erasmo Britt MD Primary Care Provider [phone] Encounter Details Date Type Department Care Team (Late st Contact Info) Description 05/06/2020 Orders Only [facility] [address] [facility] [address] [place] [phone] Provider, MD Alireza [address] [place] [address] Social History Tobacco Use Types Packs/Day Years [...] on file Sexual Orientation Not on file COVID-19 Exposure Response Date Recorded In the last month, have you been in contact with someone who was confirmed or suspected to have Coronavirus / COVID-19? No / Unsure 04/22/2020 1:50 PM EDT documented as of this encounter Plan of Treatment Upcoming Encounters Date Type Department Care Team (Late st Contact Info) Description 04/24/2024 3:00 PM EDT Office Visit [facility] [address] [facility] [address] [place] [phone] Rajinder Cody MD [address] [facility] [address] [place] [address] documented as of this encounter Procedures Procedure Name Priority Date/Time Associated Diagnosis Comments EXT RESULT ENTRY Routine 05/06/2020 documented in this encounter Results * EXT RESULT ENTRY (05/06/2020) us Historical Provider LAB BLOOD ORDERABLES Catherine l Result documented in this encounter Visit Diagnoses Not on filedocumented in this encounter Care Teams Patch Driller Relationship Specialty Start Date End Date Erasmo Britt MD [address] [place] [address] PCP - General 02/18/20 documented as of this encounter
[2024-03-13 11:12] LABS: Anion Gap 13 (12-20); Blood Urea Nitrogen 24 mg/dL (9-16); Calcium 9.5 mg/dL (8.4-10.2); Carbon Dioxide 23 mmol/L (22-29); Chloride 110 mmol/L (96-108); Estimated Glomerular Filt Rate 43; Glucose Random 109 mg/dL (60-115); Potassium 4.1 mmol/L (3.3-5.1); Sodium 142 mmol/L (135-145)
== END 2024-03-13 09:14 | disposition home or self-care (01) ==
LOC: HO.HMGCLDS 09:13
PROVIDERS: PCP Internal Medicine; Visit Provider Internal Medicine
DX: J01.00 Acute maxillary sinusitis, unspecified (principal); I10 Essential (primary) hypertension; N28.9 Disorder of kidney and ureter, unspecified
CPT/HCPCS: 36415; 80048

== ENCOUNTER 2024-04-11 09:08 | Outpatient (REF) | payer MEDICARE, SELFPAY ==
--- OUTSIDE RECORDS SUMMARY | 2024-04-11 10:05 | XMS_ITS | Encounter Summary ---
Author Organization [facility] Address [address] [address] Phone Care Team Providers Care Boat Builder Name Role Phone Erasmo Britt MD Primary Care Provider [phone] Encounter Details Date Type Department Care Team (Latest Contact Info) Description 11/22/2023 Office Communication [facility] [address] [phone] Rajinder Cody MD [address] [address] Stage 3b chronic kidney disease [...] Office Visit [facility] [address] [address] Rajinder Cody MD [address] [address] Scheduled Orders Name Type Priority [...] comments Comment: THIS TEST WAS PERFORMED AT: [facility] [address] [place] [address] ??[phone] NELLI MIDDLETON MD Interpretation SEE NOTE See o rder comments Comment:Two IgG kappa monocl onal bands present. Blood (Blood, Venous) 12/13/2023 4:10 PM EST 12/13/2023 4:10 PM EST Rajinder Cody MD LAB BLOOD ORDERABLES Final Re sult [place] See order comments [place] [address] * Magnesium (12/13/2023 4:10 PM EST) Magnesium 2.2 1.6 - 2.6 mg/dL See order comments Blood (Blood, Venous) 12/13/2023 4:10 PM EST 12/13/2023 4:10 PM EST Rajinder Cody MD LAB BLOOD ORDERABLES Final Re sult [place] See order comments [place] [address] documented in this encounter Visit Diagnoses Diagnosis Stage 3b chronic kidney disease (HCC)- Primary documented in this encounter Care Teams Boat Builder Relationship Specialty Start Date End Date Erasmo Britt MD [address] [place] [address] PCP - General 02/18/20 documented as of this encounter
--- OUTSIDE RECORDS SUMMARY | 2024-04-11 10:05 | XMS_ITS ---
Author Organization [facility] Address [address] [place] [address] Care Team Providers Care Annealer Helper Name Role Phone Erasmo Britt MD Primary Care Provider Artemio Graves Unavailable [phone] REASON FOR VISIT ? EGD and/or a F/U OV, send note to PCP Problems Problem Type SNOMED Code ICD Code Onset Dates Problem Status W/U Status Risk Notes Problem Gastroesophageal reflux disease (473962832) Chronic GERD (K21.9) Active confirmed Problem Weight loss (336740870) Weight loss (R63.4) Active confirmed Encounters Encounter Location Date Provider Diagnosis [facility] [address] [address] 03/21/2023 Artemio Smith Chronic GERD K21.9 and Weight loss R63.4 Assessments Encounter Date Diagnosis (ICD Code) Assessment Notes Treatment Notes Treatment Clinical Notes Section Notes 03/21/2023 Chronic GERD (ICD-10 - K21.9) 03/21/2023 Weight loss (ICD-10 - R63.4) Plan Of Treatment Future Test Test Name Order Date UPPER GI ENDOSCOPY 03/28/2023 Progress Notes * ARTEMIO LEWIS GDOB:[birth year] (82 yo M)Acc No.[id number]:03/21/2023 Patient:?ARTEMIO LEWIS :1940???Age:82 Y???Sex:Male Address:[facility] [place] [address] Subjective: * Chief Complaints: * ? EGD and/or a F/U OV, se nd note to PCP * Medical History:? * Surgical History:? * Hospitalization/Major Diagno stic Procedure:? * Medications:? Objective: Assessment: * Assessment: 1.?Chronic GERD - K21.9 (Amara elisa)?2.?Weight loss - R63.4? Plan: * Treatment: 2.?Weight loss?Procedure: UPPER GI ENDOSCOPY (Ordered for 03/28/2023)* with MAC * Procedure Codes:? * true * Date:? Generated for Lucas lui/John/eTclairesmitting on:?04/11/2024 10:05 AM EST
--- OUTSIDE RECORDS SUMMARY | 2024-04-11 10:05 | XMS_ITS | Patient Health Record ---
Author Organization [facility] Address [address] [place] [address] Care Team Providers Care Inspector Government Property Name Role Phone Erasmo Britt MD Primary Care Provider Artemio Graves Unavailable [phone] Allergies No Known Allergies Reason For Referral No Information Medications Medication SIG (Take, Route, Frequency, Duration) Notes Start Date End Date Status Atorvastatin Calcium 40 mg 1 tablet Oral ly Once a day Active Allopurinol 100 MG 1 tablet Orally Once a day Active Omeprazole 20 MG 1 capsule 30 minutes before morning meal Orally Once a day Active Atenolol 25 mg 1 tablet Orally Once a day Active Quinapril HCl 20 MG 1 tablet Orally Once a day Active Ergocalciferol 1.25 MG (31014 UT) 1 capsule Orally once a week Active amLODIPine Besylate 5 MG 1 tablet Orally Once a day for 30 day(s) Active Calcitriol 0.25 MCG 1 capsule Orally kaleigh ry other day Active Immunizations Vaccine Route Administration Date Status Comme nts Influenza Unknown 11/07/2016 Administered Social History Alcohol Screen Question Answer Notes Did you have a drink contain ing alcohol in the past year? Yes How often did you have a dri nk containing alcohol in the past year? 2 to 4 times a month (2 points) How many drinks did you have on a typical day when you were drinking in the past year? 1 or 2 drinks (0 point) How often did you have 6 or more drinks on one occasion in the past year? Never (0 point) Points 2 Interpretation Negative Section Notes: Nonsmoker; occasional alcoho l Nonsmoker; occasional alcoho l Nonsmoker; occasional alcoho l Nonsmoker; occasional alcoho l Nonsmoker; occasional alcoho l Problems Problem Type SNOMED Code ICD Code Onset Dates Problem Status W/U Status Risk Notes Problem 008199283 Encounter for screening for malignant neoplasm of colon (Z12.11) Active confirmed Problem 839211710 History of adenomatous polyp of colon (Z86.010) Active confirmed Problem Weight loss (694943819) Weight loss (R63.4) Active confirmed Problem 041832310 Gastroesophageal reflux disease without esophagitis (K21.9) Active confirmed Problem Gastroesophageal reflux disease (853577749) Chronic GERD (K21.9) Active confirmed Vital Signs Blood pressure diastolic 00 mm Hg 05/26/2023 Height 69 in 05/26/2023 Blood pressure systolic 00 mm Hg 05/26/2023 Weight 191 lbs 05/26/2023 BMI 28.20 kg/m2 05/26/2023 Encounters Encounter Location Date Provider Diagnosis [facility] [address] [place] [address] 05/26/2023 Artemio Smith Gastroesophageal ref lux disease without esophagitis K21.9 Assessments Encounter Date Diagnosis (ICD Code) Assessment Notes Treatment Notes Treatment Clinical Notes Section Notes 05/26/2023 Gastroesophageal reflux disease without esophagitis (ICD-10 - K21.9) Continue omeprazole daily, watch diet, etc. Call me if heartburn worsens, trouble swallowing, etc. Overall, Fausto appears well from a clinical standpoint and does not appear to be having any worrisome GI complaints at the present time. His previous weight loss has seemingly resolved and leveled off based on his current weight. His omeprazole continues to be working well for his previous reflux symptoms. Overall, he appears to be doing well from a GI standpoint and is not having any worrisome upper GI complaints. As such, I did advise him to certainly continue his daily omeprazole and to continue to watch his diet in regard to avoiding any particular foods that might exacerbate his reflux. I don't think he needs an upper endoscopy at the present time based on his clinical history. If things remained well advised him to see me again on a p.r.n. basis. However, I did advise him to certainly call if any worsening upper GI complaints or begins having a recurrence of his unintentional weight loss. Fausto was very comfortable with this plan. Thank you again for allowing me to have participated in Fausto's care. I shall continue to keep advised of his progress as needed. Please do not hesitate to contact me if I can be of any further assistance in the future. Plan Of Treatment Future Test Test Name Order Date COLONOSCOPY 11/05/2011 COLONOSCOPY 12/14/2016 UPPER GI ENDOSCOPY 03/28/2023 Insurance Providers Payer Name Payer Address Payer Phone Subscriber Number Group Number Insured Name Patient Relationship to Insured Coverage Start Date Coverage End Date MEDICARE OF [place] [address] [place] [address] [phone] [id number] ARTEMIO LIMON Self - patient is the insured [employer] CLAIMS [address] [place] [phone] [id number] ARTEMIO LIMON Self - patient is the insured Medical (General) History Medical History History ICD Code GERD-EGD in 2005 with a small HH and edilma y minimal esophagitis-no Iniguez's Hx of tubular adenomas--most recent colonoscopy was 12/2011 with removal of 1 tubular adenoma--other tubular adenomas removed in 2003 and 2006 hyperlipidemia hypertension kidney stones-1988 Denies ME,DM,CVA,Lung disease,renal dise ase Neg. screening colonoscopy in 03/2017 Left bundle branch block-sees Dr. Romi park Renal insufficiency Surgical History Surgery Date(Month/Year) Surgery for plonidal cyst 1967 Broken wrist 2018
--- OUTSIDE RECORDS SUMMARY | 2024-04-11 10:05 | XMS_ITS | Clinical Summary ---
Author Organization [facility] Address [address] [address] Care Team Providers Care Oil Pipe Inspector Name Role Phone Erasmo Britt MD Primary Care Provider [phone] Allergies Active Allergy Reactions Criticality Noted Date [...] tablet 3 07/12/2023 Active ergocalciferol 1.25 MG (07065 UT) capsule TAKE ONE CAPSULE BY MOUTH [...] calcification 05/06/201710/20 Vitamin D deficiency 05/06/2017 021 Immunizations Name Administration Dates Next Due Influenza [...] Office Visit [facility] [address] [address] Rajinder Cody MD [address] [address] Health Maintenance Due Date Last Done Comments Diabetes: Ophthalmology Exam 01/13/2022 Diabetes: Pedal Pulse Checked 01/13/2022 Diabetes: Sensory Foot Exam 01/13/2022 Diabetes: Visual Foot Exam 01/13/2022 Diabetes: Hemoglobin A1C 04/11/2022 022, 04/15/2021, 01/16/2019 Pneumococcal Vaccine: 65+ Years Completed 12/04/2019, 11/04/2014, 09/09/2006 Influenza Vaccine Completed 12/20/2023, , 12/01/2018, Additional history exists Hepatitis B Vaccine Aged Out No longe r eligible based on patient's age to complete this topic Procedures Procedure Name Priority Date/Time Associated Diagnosis Comments HEMOGLOBIN A1C Routine 01/11/2022 11:21 AM EST Stage 3a chronic kidney disease (HCC) Essential hypertension from Last 3 Months or Most Recently Relevant to Health Maintenance Results * Hemoglobin A1c (01/11/2022 11:21 AM EST) [...] average glucose, using the formula of the I1H-Vrtnwpw Average Glucose study (ADAG), Diabetes Care, Vol.31,#8, Aug. 2008 Blood (Blood, Venous) 01/11/2022 11:21 AM EST 01/11/2022 11:21 AM EST us Rajinder Cody MD LAB BLOOD ORDERABLES [facility] Last 3 Months or Most Recently Relevant to Health Maintenance Insurance [facility] MEDICARE [facility] MEDICARE Care Teams Oil Pipe Inspector Relationship Specialty Start Date End Date Erasmo Britt MD [address] [place] [id number] PCP - General 02/18/20
--- OUTSIDE RECORDS SUMMARY | 2024-04-11 10:05 | XMS_ITS ---
Author Organization [facility] Address [address] [place] [address] Care Team Providers Care Recycling Operator Name Role Phone Erasmo Britt MD Primary Care Provider Artemio Graves Unavailable [phone] Allergies No Known Allergies REASON FOR VISIT patient presents tody for weight loss and reflux Medications Medication SIG (Take, Route, Frequency, Duration) [...] Once a day Active Ergocalciferol 1.25 MG (15616 UT) 1 capsule Orally once a week Active amLODIPine Besylate 5 MG 1 tablet Orally Once a day for 30 day(s) Active Calcitriol 0.25 MCG 1 capsule Orally kaleigh ry other day Active Social History Alcohol Screen Question Answer Notes [...] Negative Section Notes: Nonsmoker; occasional alcoho l Vital Signs Blood pressure systolic 00 mm Hg 05/26/19 24 Blood pressure diastolic 00 mm Hg 024 Height 69 in 05/26/2023 Weight 191 lbs 05/26/2023 BMI 28.20 kg/m2 05/26/2023 Encounters Encounter Location Date Provider Diagnosis [facility] [address] [facility] [address] [place] [address] 05/26/2023 Artemio Smith Gastroesophageal ref lux disease [...] assistance in the future. Plan Of Treatment Medication Medication Name Sig Start Date Stop Date Notes Omeprazole 20 MG 1 capsule 30 minutes before morning meal Orally Once a day Treatment Notes Assessment Notes Gastroesophageal reflux dise ase without esophagitis Continue omeprazole daily, watch diet, etc. Call me if heartburn worsens, trouble swallowing, etc. Next Appt Details Follow Up: prn, Reason: Progress Notes * ARTEMIO LEWIS GDOB:[birth year] (82 yo M)Acc No.[id number]:05/26/2023 Progress Notes Patient:?ARTEMIO LEWIS Provider:?Artemio Smith MD :1940???Age:82 Y???Sex:Male Hung e:05/26/2023 Address:[address] [facility] [place] Pcp:Erasmo Britt MD Subjective: * Chief Complaints: * ???Patient presents to for weight loss and reflux * HPI: ???incontinence:? I saw Fausto in followup today in regard to his gastroesophageal reflux and previous weight loss. ?Since I last saw Fausto on March 08 he reports that he has continued to feel well on his daily omeprazole. He denies any significant heartburn, dysphagia, anorexia, nausea, nor vomiting. He weighed 183 pounds when he was here on March 08 and today is 191 pounds. He denies any abdominal pain or jaundice. He reports his bowel movements have been fairly regular without any hematochezia nor melena. ?In reviewing things with him he does describe having lost about 20 pounds since he retired. He does report that he is now eating less due to being less active, but does eat comfortably. However, he does feel well and is doing things like yoga and other exercise. As mentioned above he has gained several pounds since he was here at the end of February. He thinks his weight is definitely leveled off over the past 6 months or so. * ROS:?General/Constitutional:?Change in appetite?denies.?Chills?denies.?Fatigue?denies.?Ophthalmologic:?Patient denies? Negative..?ENT:?Patient denies?Negative..?Respiratory:?Patient denies?No coughing/hemoptysis..?Cardiovascular:?Patient denies? No chest pain/orthopnea..?Gastrointestinal:?Comments?See HPI for details.?Genitourinary:?Patient denies? No dysuria/hematuria..?Musculoskeletal:?Patient denies? No specific arthralgias/myalgias..?Skin:?Patient denies?No rash/pruritus..?Neurologic:?Patient denies? No headaches/seizures..?Psychiatric:?Patient denies?Negative..? * Medical History:? * Surgical History:?Surgery fo r plonidal cyst 1967Broken wrist 2018 * Hospitalization/Major Diagno stic Procedure:?No Hospitalization History. * Family History:?Father: dece ased.?Mother: .? There is no family history of colorectal cancer nor polyps. * Social History:?Tobacco Use:?Tobacco Use/Smoking?Are you a: nonsmoker.?Drugs/Alcohol:?Alcohol Screen?Did you have a drink containing alcohol in the past year??Yes,?How often did you have a drink containing alcohol in the past year??2 to 4 times a month (2 points),?How many drinks did you have on a typical day when you were drinking in the past year??1 or 2 drinks (0 point),?How often did you have 6 or more drinks on one occasion in the past year??Never (0 point),?Points?2,?Interpretation?Negative.?Miscellaneous:?Marital status: 04/2023. 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 ???Nonsmoker; occasional alcohol. * Medications:?TakingCalcitrio l 0.25 MCG Capsule 1 capsule Orally every other dayOmeprazole 20 MG Capsule Delayed Release 1 capsule 30 minutes before morning meal Orally Once a dayamLODIPine Besylate 5 MG Tablet 1 tablet Orally Once a dayErgocalciferol 1.25 MG (20352 UT) Capsule 1 capsule Orally once a weekAtenolol 25 mg Tablet 1 tablet Orally Once a dayQuinapril HCl 20 MG Tablet 1 tablet Orally Once a dayAtorvastatin Calcium 40 mg Tablet 1 tablet Orally Once a dayAllopurinol 100 MG Tablet 1 tablet Orally Once a dayMedication List reviewed and reconciled with the patientTaking Calcitriol 0.25 MCG Capsule 1 capsule Orally every other dayTaking Omeprazole 20 MG Capsule Delayed Release 1 capsule 30 minutes before morning meal Orally Once a dayTaking amLODIPine Besylate 5 MG Tablet 1 tablet Orally Once a dayTaking Ergocalciferol 1.25 MG (45094 UT) Capsule 1 capsule Orally once a weekTaking Atenolol 25 mg Tablet 1 tablet Orally Once a dayTaking Quinapril HCl 20 MG Tablet 1 tablet Orally Once a dayTaking Atorvastatin Calcium 40 mg Tablet 1 tablet Orally Once a dayTaking Allopurinol 100 MG Tablet 1 tablet Orally Once a dayMedication List reviewed and reconciled with the patient * Allergies:?N.K.D.A.yes[Aller gies Verified] Objective: * Vitals:?Wt: 191 lbs, Ht: 69 in, BMI:28.20 Index, BP: 00/00 mm Hg. * Examination: ???General Examination: ?GENERAL APPEARANCE:?pleasant, well nourished, well developed, in no acute distress.?EYES:?sclera non-icteric.?ORAL CAVITY:?mucosa moist.?NECK/THYROID:?no cervical lymphadenopathy, neck supple.?SKIN:?nonjaundiced, no spider angiomata..?HEART:?S1, S2 normal.?LUNGS:?clear to auscultation bilaterally.?ABDOMEN:?normal bowel sounds, no guarding or rigidity, no hepatosplenomegaly, no masses palpable, soft, nontender, nondistended..?EXTREMITIES:?no edema.?NEUROLOGIC:?alert and oriented.? Assessment: * Assessment: 1.?Gastroesophageal reflux d isease without esophagitis - K21.9 (Primary)? Overall, Fausto appears well fr om a clinical standpoint and does not appear [...] of any further assistance in the future. Plan: * Treatment: 2.?Others? Continue Omeprazole Capsule Delayed Release, 20 MG, 1 capsule 30 minutes before morning meal, Orally, Once a day.?? * Procedure Codes:?1036F TOBAC CO NON-[id number] BP SCR NOT PRFRM REC REASON NOS * Preventive Medicine:? ??Counseling:?Care goal follow-up plan:?Above Normal BMI Follow-up?Giving encouragement to exercise,?BMI management provided?Yes.? * Follow Up:?prn * * Sign off status: Completed true * Provider:?Artemio Smith MD Date:? 024 Generated for Lucas lui/John/Savanahitting on:?04/11/2024 10:04 AM EST History and Physical Notes * HPI (History of Present Illness) Category Sub-Category Detail Notes Category Not es incontinence I saw Fausto in followup today in regard to his gastroesophageal reflux and previous weight loss. Since I last saw Fausto on March 08 he reports that he has continued to feel well on his daily omeprazole. He denies any significant heartburn, dysphagia, anorexia, nausea, nor vomiting. He weighed 183 pounds when he was here on March 08 and today is 191 pounds. He denies any abdominal pain or jaundice. He reports his bowel movements have been fairly regular without any hematochezia nor melena. In reviewing things with him he does describe having lost about 20 pounds since he retired. He does report that he is now eating less due to being less active, but does eat comfortably. However, he does feel well and is doing things like yoga and other exercise. As mentioned above he has gained several pounds since he was here at the end of February. He thinks his weight is definitely leveled off over the past 6 months or so. Examination Category Sub-Category Detail Notes Category Not es General Examination GENERAL APPEARANCE: pleasant , well nourished, well developed, in no acute distress EYES: sclera non-icteric NECK/THYROID: no cervical lymphade nopathy, neck supple HEART: S1, S2 normal LUNGS: clear to auscultatio n bilaterally ABDOMEN: normal bowel sounds, no guarding or rigidity, no hepatosplenomegaly, no masses palpable, soft, nontender, nondistended. NEUROLOGIC: alert and oriented SKIN: nonjaundiced, no spi aramis angiomata. EXTREMITIES: no edema ORAL CAVITY: mucosa moist
--- OUTSIDE RECORDS SUMMARY | 2024-04-11 10:05 | XMS_ITS | Encounter Summary ---
Author Organization [facility] Address [address] [facility] [address] [place] [address] Phone Care Team Providers Care Pattern Data Operator Name Role Phone Erasmo Britt MD Primary Care Provider Reason for Visit * Reason Comments Med Refill Encounter Details Date Type Department Care Team (Late Contact Info) Description 12/08/2020 Refill [facility] [address] [facility] [address] [place] [address] Thien Jones MD Social History [...] Visit [facility] [address] [facility] [address] [place] [address] Rajinder Cody MD [address] [facility] [address] [place] [address] documented as of this encounter Visit Diagnoses Not on filedocumented in this encounter Care Teams Pattern Data Operator Relationship Specialty Start Date End Date Erasmo Britt MD [address] [place] [address] PCP - General 02/18/20 documented as of this encounter
--- OUTSIDE RECORDS SUMMARY | 2024-04-11 10:05 | XMS_ITS | Encounter Summary ---
Author Organization [facility] Address [address] [facility] [address] [place] [address] Phone Care Team Providers Care Manager Of Tires Sales Name Role Phone Erasmo Britt MD Primary Care Provider [phone] Encounter Details Date Type Department Care Team (Late st Contact Info) Description 05/06/2020 Orders Only [facility] [address] [facility] [address] [place] [phone] Provider, MD Alireza [address] [place] [address] Social History Tobacco Use Types Packs/Day Years [...] Visit [facility] [address] [facility] [address] [place] [phone] Rajinder Cody MD [address] [facility] [address] [place] [address] documented as of this encounter Procedures Procedure Name Priority Date/Time Associated Diagnosis Comments EXT RESULT ENTRY Routine 05/06/2020 documented in this encounter Results * EXT RESULT ENTRY (05/06/2020) us Historical Provider LAB BLOOD ORDERABLES Catherine l Result documented in this encounter Visit Diagnoses Not on filedocumented in this encounter Care Teams Manager Of Tires Sales Relationship Specialty Start Date End Date Erasmo Britt MD [address] [place] [address] PCP - General 02/18/20 documented as of this encounter
--- OUTSIDE RECORDS SUMMARY | 2024-04-11 10:05 | XMS_ITS ---
Author Organization [facility] Address [address] [place] [address] Care Team Providers Care Assistant Manager Bilingual Name Role Phone Erasmo Britt MD Primary Care Provider Artemio Graves Unavailable [phone] REASON FOR VISIT colon screening, blood issues Encounters Encounter Location Date Provider Diagnosis [facility] [address] [place], [place] [address] [place] [address] 05/18/2023 Artemio Smith Plan Of Treatment No Information Progress Notes * DEBBIEARTEMIO GDOB:[birth year] (83 yo M)Acc No.[id number]:05/18/2023 Progress Notes Patient:?ARTEMIO LEWIS Provider:?Artemio Smith MD :1940???Age:82 Y???Sex:Male Hung e:05/18/2023 Address:[address] [place], [place] [address] Pcp:Erasmo Britt MD Subjective: * Chief Complaints: * ???1. Colon screening, blood issues. * Medical History:? Objective: * Vitals:? Assessment: Plan: * Treatment: * * The named appointment provid er may or may not be the originator of this progress note, and it is not deemed complete until electronically signed by the appointment provider. Sign off status: Pending * Provider:?Artemio Smith MD Date:? 024 Generated for Lucas lui/John/eTclairesmitting on:?04/11/2024 10:05 AM EST
--- OUTSIDE RECORDS SUMMARY | 2024-04-11 10:05 | XMS_ITS | Clinical Summary ---
Author Organization [facility] ity Address [address] [place] [address] Care Team Providers Care Poolroom Table Attendant Name Role Phone Unavailable Primary Care Provider Unavailabl e Social History Tobacco Use Types Packs/Day Years Used Date Smoking Tobacco: Never Assessed Sex and Gender Information Value Date Recorded Sex Assigned at Not on file Legal Sex Male 5:23 PM EST Gender Identity Not on file Sexual Orientation Not on file Plan of Treatment Health Maintenance Due Date Last Done Comments DTaP,Tdap,and Td Vaccines (1 - Tdap) 11/26/1959 Pneumococcal Vaccine: 50+ Ye ars (1 of 1 - PCV) 1990 Zoster Vaccines (1 of 2) 1990 RSV Immunization Patients 60 + Years Old [...] patient's age to complete this topic Meningococcal B Vacine Aged Out No lo nger eligible based on patient's age to complete this topic RSV Immunization Patients Un aramis 20 months Aged Out No longer eligible b ased on patient's age to complete this topic Varicella Vaccines Aged Out No longer eligible based on patient's age to complete this topic
[2024-04-11 10:12] LABS: Appearance Urine Clear; Color Urine Yellow; Glucose Urine UA >=1000 mg/dL (Negative); Leukocyte Esterase Urine Negative (Negative); Nitrite Urine Negative (Negative); PH 6.5 (5.0-9.0); Specific Gravity - Urine 1.015 (1.005-1.025); UMIC TRIGGER UA YES; Urine Blood Negative (Negative); Urine Ketones Negative (Negative); Urine Protein 30 (1+) mg/dL (Neg-Trace)
[2024-04-11 10:20] LABS: Bacteria Urine None Seen (None Seen); Hyaline Casts Urine 0-2 /LPF (0-2); RBC Urine 0-2 /HPF (0-2); Squamous Epithelial Cell Urine 0-2 /HPF (0-2); WBC Urine 0-5 /HPF (0-5)
[2024-04-11 10:43] LABS: MANUAL DIFF FLAG NO
[2024-04-11 10:54] LABS: Basophils Absolute Auto 0.1 X10*3/uL (0.0-0.2); Basophils Percent Auto 0.5 % (0-2); Eosinophils Absolute Auto 0.1 X10*3/uL (0.0-0.4); Eosinophils Percent Auto 1.3 % (0-4); Hematocrit 42.6 % (42.0-52.0); Hemoglobin 14.1 g/dl (14.0-18.0); Imm Gran Abs Auto 0.05 X10*3/uL (0.00-0.03); Imm Gran Pct Auto 0.5 % (0.0-0.4); Lymphocytes Absolute Auto 2.2 X10*3/uL (1.2-4.9); Lymphocytes Percent Auto 23.3 % (20-40); Mean Corpuscular HGB Conc 33.1 g/dl (31.0-36.0); Mean Corpuscular Hemoglobin 32.5 pg (27.0-33.0); Mean Corpuscular Volume 98.2 fL (80.0-98.0); Mean Platelet Volume 9.9 fL (9.4-12.4); Monocytes Absolute Auto 0.9 X10*3/uL (0.1-1.2); Monocytes Percent Auto 9.1 % (2-11); Neutrophils Absolute Auto 6.1 x10*3/uL (2.0-8.3); Neutrophils Percent Auto 65.3 % (45-73); Platelet Count 306 X10*3/uL (160-400); Red Blood Count 4.34 X10*6/uL (4.60-5.80); Red Cell Distribution Width 14.6 % (11.0-16.0); White Blood Count 9.4 X10*3/uL (4.8-10.8)
[2024-04-11 11:06] LABS: Creatinine Urine 79.38 mg/dL; Microalbum/Creatinine Ratio Ur 303.6 ug/mg cr (<30); Protein/Creatinine Ratio, Ur 0.49 (<0.2); Total Protein Urine Random 39 mg/dL (<12)
[2024-04-11 12:31] LABS: Anion Gap 12 (12-20); Blood Urea Nitrogen 27 mg/dL (9-16); Calcium 9.4 mg/dL (8.4-10.2); Carbon Dioxide 26 mmol/L (22-29); Chloride 105 mmol/L (96-108); Estimated Glomerular Filt Rate 44; Phosphorus 2.9 mg/dL (2.7-4.5); Potassium 5.2 mmol/L (3.3-5.1); Sodium 138 mmol/L (135-145)
[2024-04-11 12:40] LABS: Parathyroid Hormone Intact 170.3 pg/mL (8.7-77.1)
[2024-04-11 12:41] LABS: Vitamin D 25-OH Total 39.8 ng/mL (>30)
== END 2024-04-11 09:09 | disposition home or self-care (01) ==
LOC: HO.HMGCLDS 09:08
PROVIDERS: PCP Internal Medicine; Visit Provider Internal Medicine Nephrology
DX: N18.32 Chronic kidney disease, stage 3b (principal); E11.22 Type 2 diabetes mellitus with diabetic chronic kidney disease; N25.0 Renal osteodystrophy; R80.1 Persistent proteinuria, unspecified
CPT/HCPCS: 36415; 80051; 81001; 82040; 82043; 82306; 82310; 82565; 82570; 83735; 83970; 84100; 84156; 84520; 85025

== ENCOUNTER 2024-10-10 09:27 | Outpatient (REF) | payer MEDICARE, SELFPAY ==
--- OUTSIDE RECORDS SUMMARY | 2023-05-18 11:20 | XMS_ITS ---
Author Organization [facility] Address [address] [place] [address] Care Team Providers Care E Learning Designer Name Role Phone Erasmo Britt MD Primary Care Provider Artemio Graves [phone] REASON FOR VISIT colon screening, blood issues Encounters Encounter Location Date Provider Diagnosis [facility] [address] [place] [address] 05/18/2023 Artemio Smith Plan Of Treatment No Information Progress Notes * ARTEMIO LEWIS GDOB:[birth year] (83 yo M)Acc No.[id number]:05/18/2023 Progress Notes Patient: ARTEMIO MASTERS Provider: Donna Smith MD :1940 A ge:82 Y S ex:Male Date:05/18/2023 Address:[address] [place], [place] [id number] Pcp:Erasmo Britt MD Subjective: * Chief Complaints: * 1 . Colon screening, blood issues. * Medical History: Objective: * Vitals: Assessment: Plan: * Treatment: * * The named appointment provid er may or may not be the originator of this progress note, and it is not deemed complete until electronically signed by the appointment provider. Sign off status: Pending * Provider: Donna Smith MD Date: 0 05/18/2023 Generated for Apolloi hu/John/eTransmitting on: 0 10/10/2024 10:15 AM EDT
--- OUTSIDE RECORDS SUMMARY | 2024-10-10 10:15 | XMS_ITS | Encounter Summary ---
Author Organization [facility] Address [address] [place] [address] Phone Care Team Providers Care Repair Welder Name Role Phone Erasmo Britt MD Unavailable Erasmo Britt MD Primary Care Provider [phone] Nisha Tatum MD Unavailable [phone] Rajinder Cody MD Unavailable [phone] Hira Saxena DO Unavailable [phone] Encounter Details Date Type Department Care Team (Late st Contact Info) Description 12/30/2023 Procedure Pass [facility], [address] [address] Social History Tobacco Use Types Packs/Day Years Used Date Smoking Tobacco: Former Cigarettes 1.5 26 1 952 - 4959 Smokeless Tobacco: Never Alcohol Use Standard Drinks/Week Comments Yes 2 (1 standard drink = 0.6 oz pur e alcohol) 1-2 drinks, 2-4 x month Education Answer Date Recorded Are you interested in more education? Not on debby e 06/04/2022 Are you concerned about learning? Not on file 06/04/2022 No 06/04/2022 No 06/04/2022 Digital Access Answer Date Recorded No 07/05/2022 No 07/05/2022 Reliable internet access at home? Not on file 07/05/2022 Device with a working camera? Not on file Intimate Partner Violence Answer Date R ecorded Denied Basic Needs Not on file 12/20/2023 In the past 12 months have y ou been in a relationship with a person who hurts, threatens, or tries to control you? No 12/20/2023 Worried food would run out Not on file 12/19 In the past 12 months have y ou been in a relationship with a person who hurts, threatens, or tries to control you? No 12/20/2023 Sex and Gender Information Value Date Recorded Sex Assigned at Male 12/22/2021 8:56 AM EST Legal Sex Male 10:12 PM EDT Gender Identity Male 12/22/2021 8:56 AM EST Sexual Orientation Straight 12/22/2021 8: 56 AM EST documented as of this encounter Plan of Treatment Upcoming Encounters Date Type Department Care Team (Late st Contact Info) Description 06/26/2024 Procedure Pass [facility] [address] [place] [address] 12/27/2024 8:15 AM EST Appointment [facility] [address] [place] [address] Rodriguez Brooke, DO 22 [facility] [address] [place] [address] 12/31/2024 11:00 AM EST Office Visit [facility] [place] [facility] [address] [place] [address] Erasmo Britt MD 40 [place] [address] 02/18/2025 7:30 AM EST Office Visit [facility] [address] [place] [address] 3rd Floor, [address] [place] [address] Rodriguez Brooke, DO [address] [address] documented as of this encounter Visit Diagnoses Not on filedocumented in this encounter Additional Health Concerns Assessment Noted Time PHQ-2 Depression Total Score: 2 12/20/19 24 9:01 AM EST documented as of this encounter Care Teams Repair Welder Relationship Specialty Start Date End Date Erasmo Britt MD 40 [place] [address] [email or web address] PCP - General Internal Medicine 02/20/19 Erasmo Britt MD 40 [place] [address] [email or web address] Insurance Assigned Provider 05/14/23 Nisha Tatum MD [address] [place] [address] [email or web address] 05/18/19 Rajinder Cody MD [address] [address] [email or web address] 05/18/19 Hira Saxena DO [address] [place] [address] [email or web address] Hematology and Oncology 02/14/24 documented as of this encounter Additional Source Comments The information contained in this document represents components of the legal health record. It is not the complete legal health record.[facility]
--- OUTSIDE RECORDS SUMMARY | 2024-10-10 10:15 | XMS_ITS | Encounter Summary ---
Author Organization [facility] Address [address] [place] [address] Phone Care Team Providers Care Ladle Repairer Name Role Phone Erasmo Britt MD Unavailable Erasmo Britt MD Primary Care Provider [phone] Nisha Tatum MD Unavailable [phone] Rajinder Cody MD Unavailable [phone] Hira Saxena DO Unavailable [phone] Encounter Details Date Type Department Care Team (Late st Contact Info) Description 02/27/2024 Procedure Pass [facility], Ct Scan - [address] [address] Social History Tobacco Use Types Packs/Day Years Used Date Smoking Tobacco: Former Cigarettes 1.5 26 1 292 - 4847 Smokeless Tobacco: Never Alcohol Use Standard Drinks/Week [...] Info) Description 06/26/2024 Procedure Pass [facility] [address] [place] [address] 12/27/2024 8:15 AM EST Appointment [facility] [address] [place] [address] Rodriguez Brooke, DO 22 [facility] [address] [place] [address] 12/31/2024 11:00 AM EST Office Visit [facility] [place] [facility] [address] [place] [address] Erasmo Britt MD 40 [place] [address] 02/18/2025 7:30 AM EST Office Visit [facility] [address] [place] [address] 3rd Floor, [address] [place] [address] Rodriguez Brooke, DO [address] [address] documented as of this encounter Visit Diagnoses Not on filedocumented in this encounter Additional Health Concerns Assessment Noted Time PHQ-2 Depression Total Score: 2 12/20/19 24 9:01 AM EST documented as of this encounter Care Teams Ladle Repairer Relationship Specialty Start Date End Date Erasmo Britt MD 40 [place] [address] [email or web address] PCP - General Internal Medicine 02/20/19 Erasmo Britt MD 40 [place] [address] [email or web address] Insurance Assigned Provider 05/14/23 Nisha Tatum MD [address] [place] [address] [email or web address] Hematology [email or web address] Oncology 05/18/19 Rajinder Cody MD [address] [address] [email or web address] 05/18/19 Hira Saxena DO [address] [place] [address] [email or web address] Hematology and Oncology 02/14/24 documented as of this encounter Additional Source Comments The information contained in this document represents components of the legal health record. It is not the complete legal health record.[facility]
--- OUTSIDE RECORDS SUMMARY | 2024-10-10 10:15 | XMS_ITS | Encounter Summary ---
Author Organization [facility] Address [address] [place] [address] Phone Care Team Providers Care Retail Account Specialist Name Role Phone Erasmo Britt MD Unavailable Erasmo Britt MD Primary Care Provider [phone] Nisha Tatum MD Unavailable [phone] Rajinder Cody MD Unavailable [phone] Hira Saxena DO Unavailable [phone] Encounter Details Date Type Department Care Team (Late st Contact Info) Description 11/29/2023 Procedure Pass [facility], Ct Scan - [address] [address] Social History Tobacco Use Types Packs/Day Years Used Date Smoking Tobacco: Former Cigarettes 1.5 26 1 882 - 3868 Smokeless Tobacco: Never Alcohol Use Standard Drinks/Week [...] with a working camera? Not on file Sex and Gender Information Value Date Recorded Sex Assigned at Male 12/22/2021 8:56 AM EST Legal Sex Male 10:12 PM EDT Gender Identity Male 12/22/2021 8:56 AM EST Sexual Orientation Straight 12/22/2021 8: 56 AM EST documented as of this encounter Plan of Treatment Upcoming Encounters Date Type Department Care Team (Late st Contact Info) Description 06/26/2024 Procedure Pass [facility] [address] [place] [address] 12/27/2024 8:15 AM EST Appointment [facility] [address] [place] [address] Rodriguez Brooke, DO 22 [facility] [address] [place] [phone] 12/31/2024 11:00 AM EST Office Visit [facility] 40 [place] [address] Erasmo Britt MD 40 [place] [address] 02/18/2025 7:30 AM EST Office Visit [facility] [address] [place] [address] Dr 3rd Floor, [address] [place] [address] Rodriguez Brooke, DO 22 [facility] [address] [place] [address] documented as of this encounter Visit Diagnoses Not on filedocumented in this encounter Additional Health Concerns Assessment Noted Time PHQ-2 Depression Total Score: 2 12/20/19 24 9:01 AM EST documented as of this encounter Care Teams Retail Account Specialist Relationship Specialty Start Date End Date Erasmo Britt MD 40 [place] [address] PCP - General Internal Medicine 02/20/19 Erasmo Britt MD 40 [place] [address] [email or web address] Insurance Assigned Provider 05/14/23 Nisha Tatum MD [address] [place] [address] [email or web address] Hematology and Oncology 05/18/19 Rajinder Cody MD 100 [facility] 200 [place] [address] [email or web address] [email or web address] 05/18/19 Hira Saxena DO [address] [place] [address] [email or web address] Hematology and Oncology 02/14/24 documented as of this encounter Additional Source Comments The information contained in this document represents components of the legal health record. It is not the complete legal health record.[facility]
--- OUTSIDE RECORDS SUMMARY | 2024-10-10 10:15 | XMS_ITS | Encounter Summary ---
Author Organization [facility] Address [address] [facility] [address] [facility] [address] [place] [address] Phone Care Team Providers Care Customs And Immigration Officer Name Role Phone Erasmo Britt MD Unavailable Erasmo Britt MD Primary Care Provider [phone] Nisha Tatum MD Unavailable [phone] Rajinder Cody MD Unavailable [phone] Hira Saxena DO Unavailable [phone] Encounter Details Date Type Department Care Team (Late st Contact Info) Description 03/13/2024 Transcribe Orders [facility] Specimen Processing [address] [place] [address] Erasmo Britt MD 40 [place] [address] [email or web address] Social History Tobacco Use Types Packs/Day Years Used Date Smoking Tobacco: Former Cigarettes 1.5 26 1 952 - 1977 Smokeless Tobacco: Never Alcohol Use Standard Drinks/Week [...] Info) Description 06/26/2024 Procedure Pass [facility] [address] [place] [address] 12/27/2024 8:15 AM EST Appointment [facility] [address] [place] [address] Rodriguez Brooke, DO [address] [address] 12/31/2024 11:00 AM EST Office Visit [facility] [place] [facility] 40 [place] [address] Erasmo Britt MD 40 [place] [address] 02/18/2025 7:30 AM EST Office Visit [facility] [address] [place] [address] 3rd Floor, [address] [place] [address] Rodriguez Brooke, DO 22 [facility] [address] [place] [address] [email or web address] documented as of this encounter Visit Diagnoses Not on filedocumented in this encounter Additional Health Concerns Assessment Noted Time PHQ-2 Depression Total Score: 2 12/20/19 24 9:01 AM EST documented as of this encounter Care Teams Customs And Immigration Officer Relationship Specialty Start Date End Date Erasmo Britt MD 40 [place] [address] [email or web address] PCP - General Internal Medicine 02/20/19 Erasmo Britt MD 40 [place] [address] [email or web address] Insurance Assigned Provider 05/14/23 Nisha Tatum MD [address] [place] [address] [email or web address] Holdingshocking valley community hospitalBo[facility] Hematology and Oncology 05/18/19 Rajinder Cody MD [address] [address] [email or web address] Nephrology 05/18/19 Hira Saxena DO [address] [place] [address] [email or web address] Hematology and Oncology 02/14/24 documented as of this encounter Additional Source Comments The information contained in this document represents components of the legal health record. It is not the complete legal health record.[facility]
--- OUTSIDE RECORDS SUMMARY | 2024-10-10 10:15 | XMS_ITS | Encounter Summary ---
Author Organization [facility] Address [address] [place] [address] [place] [address] Phone Care Team Providers Care Resident Care Manager Rn Name Role Phone Erasmo Britt MD Primary Care Provider [phone] Erasmo Britt MD Unavailable [phone] Erasmo Britt MD Primary Care Provider [phone] Nisha Tatum MD Unavailable [phone] Rajinder Cody MD Unavailable [phone] Hira Saxena DO Unavailable [phone] Encounter Details Date Type Department Care Team (Latest Contact Info) Description 11/07/2017 Transcribe Orders [facility] Laboratory [address] [place], [place] [phone] Erasmo Britt MD 40 [place], [place] [phone] [email or web address] Impaired fasting glucose (Primary Dx); Pure hypercholesterolemia ; Essential hypertension, malignant; Hyperuricemia Social History Tobacco Use Types Packs/Day Years Used Date Smoking Tobacco: Former Cigarettes Smokeless Tobacco: Never Comments:Quit in 1978 Alcohol Use Standard Drinks/Week Comments Yes 0 (1 standard drink = 0.6 oz pur e alcohol) Beer and Hard liquor rarely Sex and Gender Information Value Date Recorded Sex Assigned at Male 12/22/2021 8:56 AM EST Legal Sex Male 10:12 PM EDT Gender Identity Male 12/22/2021 8:56 AM EST Sexual Orientation Straight 12/22/2021 8: 56 AM EST documented as of this encounter Plan of Treatment Upcoming Encounters Date Type Department Care Team (Late st Contact Info) Description 06/26/2024 Procedure Pass [facility] [address] [place] [address] 12/27/2024 8:15 AM EST Appointment [facility] [address] [place] [address] Rodriguez Brooke, DO 22 [facility] [address] [place] [address] 12/31/2024 11:00 AM EST Office Visit [facility] [address] [place] [address] Erasmo Britt MD 40 [place] [address] 02/18/2025 7:30 AM EST Office Visit [facility] [address] [place] [address] 3rd Floor, [address] [place] [phone] Rodriguez Brooke, DO 22 [facility] [address] [place] [phone] documented as of this encounter Results * (ABNORMAL) Urinalysis (11/07/2017 8:27 AM EDT) COLOR Yellow Yellow [facility] CLARITY Clear [facility] GLUCOSE Negative Negative [facility] BILI Negative Negative [facility] KETONES Negative Negative [facility] SPECIFIC GRAVITY 1.025 1.005 - 1.030 [facility] BLOOD Negative Negative [facility] PH 5.5 5.0 - 8.0 [facility] Protein-UA 1+(A) Negative [facility] NITRITE Negative Negative [facility] Leukocyte esterase, ur Negative Negative [facility] Urine (Urine) 11/07/2017 8:2 7 AM EDT 11/07/2017 8:29 AM EDT us Erasmo Britt MD URINE ORDERABLES Final Result Performing Organization Address [facility] Co de Phone Number [address] [address] * Uric acid (11/07/2017 8:13 AM EDT) URIC ACID 4.8 2.4 - 7.0 mg/dL [facility] Blood 11/07/2017 8:13 AM EDT 11/07/2017 8:15 AM EDT us Erasmo Britt MD LAB BLOOD ORDERABLES Final Re sult Performing Organization Address [facility] Co de Phone Number [address] [address] * (ABNORMAL) Hemoglobin A1c (11/07/2017 8:13 AM EDT) HEMOGLOBIN A1C 6.9(H) 4.3 - 5.8 % [facility] Blood 11/07/2017 8:13 AM EDT 11/07/2017 8:15 AM EDT us Erasmo Britt MD LAB BLOOD ORDERABLES Final Re sult Performing Organization Address [facility] Co de Phone Number [address] [address] * (ABNORMAL) CBC (11/07/2017 8:13 AM EDT) WBC 9.74 3.40 - 11.20 K/uL [facility] RBC 4.07(L) 4.50 - 5.50 M/uL [facility] HGB 12.7(L) 13.0 - 17.0 g/dL [facility] HCT 38.2(L) 40.0 - 51.0 % [facility] PLT 323 130 - 400 K/uL [facility] MCV 93.9 79.0 - 98.0 fL [facility] MCH 31.2 27.0 - 34.8 pg [facility] MCHC 33.2 31.5 - 36.0 g/dL [facility] RDW 12.9 10.8 - 14.6 % [facility] MPV 9.9 9.4 - 12.4 fl [facility] NRBC 0.00 /100 WBCs [facility] ABSOLUTE NRBC 0.00 K/uL [facility] Blood 11/07/2017 8:13 AM EDT 11/07/2017 8:15 AM EDT us Erasmo Britt MD LAB BLOOD ORDERABLES Final Re sult Performing Organization Address [facility]/ZIP Co de Phone Number [address] [address] * (ABNORMAL) Lipid panel (11/07/2017 8:13 AM EDT) HDL 44 mg/dL [facility] Comment: Interpretation: Risk Level Males Decreased >45 mg/dL Average 40-45 mg/dL Increased <40 mg/dL CHOLESTEROL 133 0 - 240 mg/dL [facility] TRIGLYCERIDES 146 30 - 160 mg/dL [facility] LDL 60 50 - 129 mg/dL [facility] Comment: LDL levels in terms of risk for coronary heart disease: <100 mg/dL: Optimal 100-129 mg/dL: Near or above optimal 130-159 mg/dL: Borderline high 160-189 mg/dL: High >190 mg/dL: Very High CARDIAC RISK RATIO 3.0(L) 3.4 - 5.0 [facility] Blood 11/07/2017 8:13 AM EDT 11/07/2017 8:15 AM EDT us Erasmo Britt MD LAB BLOOD ORDERABLES Final Re sult Performing Organization Address [facility]/ZIP Co de Phone Number [address] [address] * (ABNORMAL) Comprehensive metabolic panel (11/07/2017 8:13 AM EDT) SODIUM 140 133 - 146 mmol/L [facility] POTASSIUM 4.2 3.3 - 5.1 mmol/L [facility] CHLORIDE 100 96 - 108 mmol/L [facility] CO2 26 21 - 35 mmol/L [facility] BUN 25(H) 6 - 19 mg/dL [facility] CREATININE 1.20 0.5 - 1.5 mg/dL [facility] GLUCOSE 114(H) 70 - 99 mg/dL [facility] ALBUMIN 4.2 3.9 - 4.8 g/dL [facility] TOTAL PROTEIN 7.9 6.5 - 8.0 g/dL [facility] CALCIUM 9.5 8.4 - 10.3 mg/dL [facility] ALKALINE PHOSPHATASE 98 39 - 117 U/L [facility] TOTAL BILIRUBIN 0.8 0.0 - 1.2 mg/dL [facility] AST 15 0 - 37 U/L [facility] ALT 6 0 - 40 U/L [facility] GLOBULIN 3.7 1 - 4.8 g/dL [facility] EGFR 58(L) >59 mL/min/1.7 3m2 [facility] Comment:If patient is black, multiply result by 1.159. Estimated glomerular filtration rate calculated using the CKD-EPI equation. ANION GAP 18 10 - 20 mmol/L [facility] Blood 11/07/2017 8:13 AM EDT 11/07/2017 8:15 AM EDT us Erasmo Britt MD LAB BLOOD ORDERABLES Final Re sult [facility] [address] [place] [address] documented in this encounter Visit Diagnoses Diagnosis Impaired fasting glucose- Primary Pure hypercholesterolemia Essential hypertension, malignant Hyperuricemia Other abnormal blood chemistry documented in this encounter Care Teams Resident Care Manager Rn Relationship Specialty Start Date End Date Erasmo Britt MD 40 [place] [address] PCP - General 11/25/16 02/19/19 Erasmo Britt MD [address] [place] [address] PCP - General Internal Medicine 02/20/19 Erasmo Britt MD [address] [place] [address] Insurance Assigned Provider 05/14/23 Nisha Tatum MD [address] [place] [address] [email or web address] Hematology and Oncology 05/18/19 Rajinder Cody MD [address] [place] [address] [email or web address] 05/18/19 Hira Saxena DO [address] [place] [address] [email or web address] Hematology and Oncology 02/14/24 documented as of this encounter Additional Source Comments The information contained in this document represents components of the legal health record. It is not the complete legal health record.[facility]
--- OUTSIDE RECORDS SUMMARY | 2024-10-10 10:15 | XMS_ITS | Encounter Summary ---
Author Organization [facility] Address [address] [facility] [address] [place] [address] Phone Care Team Providers Care Computerized Mill Recorder Name Role Phone Erasmo Britt MD Unavailable [phone] Erasmo Britt MD Primary Care Provider [phone] Nihsa Tatum MD Unavailable [phone] Rajinder Cody MD Unavailable [phone] Hira Saxena DO Unavailable [phone] Reason for Referral * MRI/CAT Scan - Closed Specialty Diagnoses / Procedures Referred By Renny barber Referred To Contact Radiology Diagnoses Unexplained weight loss Procedures MRI Abdomen Erasmo Britt MD Phone: tel: fax: [email or web address] Referral ID Status Reason Start Date Expiration Date Visits Re quested Visits Authorized [id number] Closed 12/30/2023 12/29/2024 1 1 Encounter Details Date Type Department Care Team (Latest Contact Info) Description 12/30/2023 Ancillary Orders [facility] [address] [place], [place] [phone] Erasmo Britt MD [address] [place], [place] [phone] Unexplained weight loss (Primary Dx) Social History Tobacco Use Types Packs/Day Years Used Date Smoking Tobacco: Former Cigarettes 1.5 26 1 1977 Smokeless Tobacco: Never Alcohol Use Standard [...] Info) Description 06/26/2024 Procedure Pass [facility] [address] [place] [address] 12/27/2024 8:15 AM EST Appointment [facility] [address] [place] [address] Rodriguez Brooke, DO [address] [facility] [address] [place] [address] 12/31/2024 11:00 AM EST Office Visit [facility] [address] [place], [place] [phone] Erasmo Britt MD 40 [place] [address] 02/18/2025 7:30 AM EST Office Visit [facility] [address] [facility] 3rd Floor, [address] [place] [address] Rodriguez Brooke DO [address] [facility] [address] [place], [place] [phone] Scheduled Orders Name Type Priority Associated Diagnoses Orde r Schedule MRI Abdomen Imaging Urgent/patient waiting Unexplained weight loss 1 Occurrences starting 12/30/2023 until 03/31/2024 documented as of this encounter Visit Diagnoses Diagnosis Unexplained weight loss- Primary Loss of weight documented in this encounter Additional Health Concerns Assessment Noted Time PHQ-2 Depression Total Score: 2 12/20/19 9:01 AM EST documented as of this encounter Care Teams Computerized Mill Recorder Relationship Specialty Start Date End Date Erasmo Britt MD 40 [place] [address] PCP - General Internal Medicine 02/20/19 Erasmo Britt MD 40 [place] [address] Insurance Assigned Provider 05/14/23 Nisha Tatum MD [address] [place] [address] [email or web address] Hematology [email or web address] [email or web address] 05/18/19 Rajinder Cody MD [address] [place] [address] [email or web address] 05/18/19 Hira Saxena DO [address] [place] [address] [email or web address] Hematology and Oncology 02/14/24 documented as of this encounter Additional Source Comments The information contained in this document represents components of the legal health record. It is not the complete legal health record.[facility]
--- OUTSIDE RECORDS SUMMARY | 2024-10-10 10:16 | XMS_ITS | Encounter Summary ---
Author Organization [facility] Address [address] [facility] [address] [place] [address] Phone Care Team Providers Care Cyber Incident Handler Name Role Phone Erasmo Britt MD Primary Care Provider Reason for Visit * Reason Comments Med Refill Encounter Details Date Type Department Care Team (Late Contact Info) Description 12/08/2020 Refill [facility] [address] [facility] [address] [place] [phone] Thien Jones MD Social History Tobacco Use [...] Encounters Date Type Department Care Team (Late Contact Info) Description 10/16/2024 3:15 PM EDT Office Visit [facility] [address] [facility] [address] [place] [address] Rajinder Cody MD [address] [facility] [address] [place] [address] documented as of this encounter Visit Diagnoses Not on filedocumented in this encounter Care Teams Cyber Incident Handler Relationship Specialty Start Date End Date Erasmo Britt MD [address] [place] [address] PCP - General 02/18/20 documented as of this encounter
--- OUTSIDE RECORDS SUMMARY | 2024-10-10 10:16 | XMS_ITS | Encounter Summary ---
Author Organization [facility] Address [address] [facility] [address] [place] [address] Phone Care Team Providers Care Steam Oven Operator Name Role Phone Erasmo Britt MD Unavailable Erasmo Britt MD Primary Care Provider [phone] Nisha Tatum MD Unavailable [phone] Rajinder Cody MD Unavailable [phone] Hira Saxena DO Unavailable [phone] Encounter Details Date Type Department Care Team (Late st Contact Info) Description 01/03/2023 Procedure Pass [facility] [place] [place], [place] [phone] Social History Tobacco Use Types Packs/Day Years Used Date Smoking Tobacco: Former Cigarettes 1.5 26 1 952 - 1977 Smokeless Tobacco: Never Alcohol Use Standard Drinks/Week Comments Yes 1 (1 standard drink = 0.6 oz pur [...] Info) Description 06/26/2024 Procedure Pass [facility] [address] [place] [address] 12/27/2024 8:15 AM EST Appointment [facility] [address] [place] [address] Rodriguez Brooke, DO [address] [facility] [address] [place] [phone] 12/31/2024 11:00 AM EST Office Visit [facility] Internal Medicine [address] [place], [place] [phone] Erasmo Britt MD 40 [place] [address] 02/18/2025 7:30 AM EST Office Visit [facility] [address] [place] [address] Dr 3rd Floor, [address] [place] [phone] Rodriguez Brooke, DO [address] [phone] documented as of this encounter Visit Diagnoses Not on filedocumented in this encounter Additional Health Concerns Assessment Noted Time PHQ-2 Depression Total Score: 0 01/04/20 23 8:24 AM EST documented as of this encounter Care Teams Steam Oven Operator Relationship Specialty Start Date End Date Erasmo Britt MD 40 [place], [place] [phone] PCP - General Internal Medicine 02/20/19 Erasmo Britt MD 40 [place] [address] [email or web address] Insurance Assigned Provider 05/14/23 Nisha Ttaum MD [address] [place] [address] [email or web address] Hematology and Oncology 05/18/19 Rajinder Cody MD [address] [address] [email or web address] 05/18/19 Hira Saxena DO [address] [place] [address] [email or web address] Hematology and Oncology 02/14/24 documented as of this encounter Additional Source Comments The information contained in this document represents components of the legal health record. It is not the complete legal health record.[facility]
--- OUTSIDE RECORDS SUMMARY | 2024-10-10 10:16 | XMS_ITS | Patient Health Record ---
Author Organization [facility] Address [address] [place] [phone] Care Team Providers Care Garage Door Opener Installer Name Role Phone Erasmo Britt MD Primary Care Provider Artemio Graves Unavailable [phone] Allergies No Known Allergies Reason For Referral [...] Once a day Active Ergocalciferol 1.25 MG (70216 UT) 1 capsule Orally once a week [...] Problem Status W/U Status Risk Notes Problem 154361295 Encounter for screening for malignant neoplasm of colon (Z12.11) Active confirmed Problem 650969394 History of adenomatous polyp of colon (Z86.010) Active confirmed Problem Weight loss (584787293) Weight loss (R63.4) Active confirmed Problem 152853595 Gastroesophageal reflux disease without esophagitis (K21.9) Active confirmed Problem Gastroesophageal reflux disease (584351322) Chronic GERD (K21.9) Active confirmed Plan Of Treatment Future Test Test Name Order Date COLONOSCOPY 11/05/2011 COLONOSCOPY 12/14/2016 UPPER GI ENDOSCOPY 03/28/2023 Insurance Providers Payer Name Payer Address Payer Phone Subscriber Number Group Number Insured Name Patient Relationship to Insured Coverage Start Date Coverage End Date MEDICARE OF [place] [address] [facility] [place] [address] [phone] [id number] ARTEMIO LIMON Self - patient is the insured [employer] ATTN CLAIMS [address] [place] [address] [id number] ARTEMIO LIMON Self - patient is the insured Medical (General) History Medical History History ICD Code GERD-EGD in 2005 with a small HH and edilma y minimal esophagitis-no Iniguez's Hx of tubular adenomas--most recent colonoscopy was 12/2011 with removal of 1 tubular adenoma--other tubular adenomas removed in 2003 and 2006 hyperlipidemia hypertension kidney stones-1988 Denies DC,DM,CVA,Lung disease,renal dise ase Neg. screening colonoscopy in 03/2017 Left bundle branch block-sees Dr. Llanos o Renal insufficiency Surgical History Surgery Date(Month/Year) Surgery for plonidal cyst 1967 Broken wrist 2018
--- OUTSIDE RECORDS SUMMARY | 2024-10-10 10:16 | XMS_ITS | Encounter Summary ---
Author Organization [facility] Address [address] [place] [address] Phone Care Team Providers Care Telephone Lines Repairer Name Role Phone Erasmo Britt MD Primary Care Provider Encounter Details Date Type Department Care Team (Late st Contact Info) Description 05/06/2020 Orders Only [facility] [address] [facility] [address] [place] [phone] ProviderAlireza MD Social History Tobacco Use Types Packs/Day [...] Care Team (Late st Contact Info) Description 10/16/2024 3:15 PM EDT Office Visit [facility] [address] [facility] [address] [place] [address] Rajinder Cody MD [address] [facility] [address] [place] [address] documented as of this encounter Procedures Procedure Name Priority Date/Time Associated Diagnosis Comments EXT RESULT ENTRY Routine 05/06/2020 documented in this encounter Results * EXT RESULT ENTRY (05/06/2020) us Historical Provider LAB BLOOD ORDERABLES Catherine l Result documented in this encounter Visit Diagnoses Not on filedocumented in this encounter Care Teams Telephone Lines Repairer Relationship Specialty Start Date End Date Erasmo Britt MD 40 [place] [address] PCP - General 02/18/20 documented as of this encounter
--- OUTSIDE RECORDS SUMMARY | 2024-10-10 10:16 | XMS_ITS | Clinical Summary ---
Author Organization [facility] Address [address] [place] [address] Phone Care Team Providers Care Manager Community Name Role Phone Erasmo Britt MD Unavailable [phone] Erasmo Britt MD Primary Care Provider [phone] Nisha Tatum MD Unavailable [phone] Rajinder Cody MD Unavailable [phone] Hira Saxena DO Unavailable [phone] Allergies Active Allergy Reactions Criticality Noted Date Comments Chlorthalidone Headaches 07/22/2021 Moxifloxacin Headaches,Nausea and /or Vomiting 04/22/2017 Other reaction(s): Other (see comments) Sildenafil Headaches 04/22/2017 Other reaction(s): Other (see comments) Medications ergocalciferol (DRISDOL) 50,000 unit capsule Take 1.25 mcg by mouth once a week. 1 Active JARDIANCE 10 mg tablet Take 10 mg by mouth daily. 4 Active calcitriol (ROCALTROL) 0.25 MCG capsule Take 0.25 mcg by mouth every other day. Active lisinopril (PRINIVIL,ZESTRIL ) 20 MG tabletIndications :Benign essential hypertension Take 1 tablet (20 mg total) by mouth daily. 90 tablet 3 5 Active allopurinol (ZYLOPRIM) 100 MG tabletIndications :Hyperuricemia TAKE TWO TABLETS BY MOUTH ONCE DAILY 180 tablet 3 5 Active traMADoL (ULTRAM) 50 mg tabletIndications :Chronic pain of left knee 1-2 TABLETS PO BID PRN LEFT KNEE PAIN 28 tablet 1 5 Active atorvastatin (LIPITOR) 40 MG tabletIndications :Hyperlipidemia TAKE ONE TABLET BY MOUTH ONCE DAILY 90 tablet 3 5 Active atenolol (TENORMIN) 25 MG tabletIndications :Hypertension TAKE 1 TABLET BY MOUTH DAILY. 90 tablet 3 5 Active Active Problems Problem Noted Date Diagnosed Date Type 2 diabetes mellitus wit h stage 3b chronic kidney disease, without long-term current use of insulin 07/20/2024 Pulmonary hypertension 06/26/2024 Assessment & Plan (06/26/2024 7:54 AM EDT): As mentioned he had mild to moderate pulmonary hypertension on an echo 2 years ago I am going to follow-up with another echo regarding this measurement Rales 1/3 way up posterior chest wall on left si de 03/05/2024 Assessment & Plan (03/05/2024 8:45 AM EST): He is not really behaving like a pneumonia but the left base definitely sounds as if there is congestion within it. Will obtain a chest x-ray with a low threshold to start an antibiotic and follow-up visit. PND (post-nasal drip) 03/05/2024 Assessment & Plan (03/05/2024 8:46 AM EST): Most of the symptoms he is complaining about with eustachian tube dysfunction a lot of chest and nasal congestion sound like after a viral infection postnasal drip persisting. Flonase 1 spray each nostril angled slightly outward and do not snort to the back of the throat use twice daily with the expectation that the effect will be slow to come about, use for at least 10 days total. An additional refill was given. Dizziness and giddiness 11/29/2023 Assessment & Plan (11/29/2023 10:45 AM EDT): Patient with intermittent dizziness x 6 weeks. No other symptoms associated with the dizziness EKG: Revealed left bundle branch block sinus rhythm heart rate 65 Orthostatic vital signs positive orthostats At this time given the positive orthostats his dizziness could be related to dehydration. He was told to increase his hydration with water. Also the dizziness could be from abrupt standing as the patient is on atenolol. I will also order a CT head at [facility] to rule out posterior stroke although patient is neurologically intact. I will also place a Holter monitor to rule out atrial fibrillation. - Left bundle branch block 02/16/2023 Assessment & Plan (02/16/2023 7:43 AM EST): We do not need to do anything with this at the present time it just represents conduction system disease his likelihood of needing a pacer sometime in his lifetime may be slightly increased I fully explained to him how this happens Abnormal MRI 05/06/2017 Acute gout of left knee 05/06/2017 Essential hypertension 05/06/2017 Assessment & Plan (06/21/2023 7:47 AM EDT): Mildly elevated if this continues to be an issue he should either get a doubling of his atenolol or Norvasc Calcification of both carotid arteries 8 Assessment & Plan (06/21/2023 7:47 AM EDT): He does have the beginnings of plaque based on CT findings of calcification in his carotid arteries LDL goal should be less than 70 mg/dL Anemia 05/06/2017 Colon polyp 05/06/2017 Male erectile disorder 05/06/2017 Fatigue 05/06/2017 Gastroesophageal reflux disease 05/06/2017 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 Assessment & Plan (02/16/2023 7:43 AM EST): The addition of a small dose of Lasix will probably have a beneficial effect on this although he does say that normally his blood pressure is lower than the 140s Hyperlipidemia 05/06/2017 Assessment & Plan (06/21/2023 7:48 AM EDT): LDL by the guidelines should be less than 70 mg/dL. Assessment & Plan (02/16/2023 7:43 AM EST): LDL for his risk should be less than 100 he is not a patient with known coronary artery disease Hyperuricemia 05/06/2017 Impaired fasting glucose 05/06/2017 Kidney stone 05/06/2017 Monoclonal gammopathy 05/06/2017 Assessment & Plan (06/26/2024 7:53 AM EDT): Stable Nocturia 05/06/2017 Osteophyte of vertebrae 05/06/2017 Pure hypercholesterolemia 05/06/2017 Assessment & Plan (06/26/2024 7:53 AM EDT): LDL should be less than 70 mg/dL given the fact he has mild plaquing of the carotid arteries by prior ultrasound Syrinx 05/06/2017 Vitamin D deficiency 05/06/2017 Encounters Date Type Department Care Team Description 07/30/2024 Refill [facility] Internal Medicine [address] [place] [address] Erasmo Britt MD Medication Refill 07/20/2024 9:00 AM EDT Office Visit [facility] Internal Medicine [address] [place] [address] Erasmo Britt MD Essential hypertension (Primary Dx); Type 2 diabetes mellitus with stage 3b chronic kidney disease, without long-term current use of insulin; Pure hypercholesterolemia 07/16/2024 12:00 PM EDT - 07/16/2024 11:59 PM EDT Hospital Encounter [facility] [address] [place] [address] Erasmo Britt MD Discharge Disposition: Home or Self Care from Last 3 Months Immunizations Immunization Administration Dates Next Due COVID-19 (Pre-11/29) Moderna Vaccine, mRNA, PF 12/08/2020,04/13/2020,03/16/2020 INFLUENZA, SPLIT VIRUS, TRIV ALENT W/ PRESERVATIVE IM 2011,01/06/2011 Influenza High-Dose Quadriva lent Preservative Free IM 01/03/2023,12/22/2021,12/09/2020,11/11 Influenza High-Dose Trivalen t Preservative Free IM 12/20/2023,12/01/2018,11/28/2017,11/19,11/05/2013,12/12/2012 Influenza Quadrivalent Prese rvative Free IM 11/07/2016 Influenza, Unspecified Formulation 07/11/2007 Pneumococcal conjugate PCV13 11/04/2014 Pneumococcal polysaccharide PPSV23 12/04/2019, Td, unspecified formulation 07/11/2007 Tdap 08/22/2021 Zoster live 05/25/2011 Family History Medical History Relation Comments Hypertension Father at 65 y ears Stroke Mother at 44 y ears Relation Status Comments Brother Alive Daughter Alive Father (Age 65) etohic Mother (Age 44) cva Sister 1 Alive parkinsons Sister 2 Alive Sister 3 chronic renal fa ilure Social History Tobacco Use Types Packs/Day Years Used Date Smoking Tobacco: Former Cigarettes 1.5 26 1 952 - 1977 Smokeless Tobacco: Never Tobacco Cessation:Counseling Given: Not Answered Alcohol Use Standard Drinks/Week Comments Yes 2 [...] Orientation Straight 12/22/2021 8: 56 AM EST Last Filed Vital Signs Vital Sign Reading Time Taken Comments Blood Pressure 136/70 07/20/2024 8:51 AM EDT Pulse 71 07/20/2024 8:51 AM EDT Temperature 36.1 C (97 F) 07/20/2024 8:51 AM EDT Respiratory Rate 16 07/20/2024 8:51 AM EDT Oxygen Saturation 97% 07/20/2024 8:51 AM EDT Inhaled Oxygen Concentration - - Weight 84.2 kg (185 lb 9.6 oz) 07/20/2024 8:51 A M EDT Height 175.3 cm (5' 9.02 ) 07/20/2024 8:51 AM ED T Body Mass Index 27.4 07/20/2024 8:51 AM EDT Plan of Treatment Upcoming Encounters Date Type Department Care Team (Late st Contact Info) Description 06/26/2024 Procedure Pass Echo Lab [address] [place] [address] 12/27/2024 8:15 AM EST Appointment Echo Lab [address] [place] [address] Rodriguez Brooke, [address] [place] [address] 12/31/2024 11:00 AM EST Office Visit [facility] [place] Internal Medicine [address] [place] [address] Erasmo Britt MD [address] [place] [address] 02/18/2025 7:30 AM EST Office Visit [facility] [address] [facility] [address]rd Floor, [address] [place] [address] Rodriguez Brooke, [address] [facility] [address] [place] [phone] [email or web address] Health Maintenance Due Date Last Done Comments ZOSTER VACCINES (2 of 3) 07/20/2011 05/25/2011 RSV VACCINE (1 - 1-dose 75+ series) 11/26/2015 DIABETIC EYE EXAM 07/20/2024 INFLUENZA VACCINE (#1) 2024 , 01/03/2023, 01/03/2023, Additional history exists COVID-19 VACCINE (2024- season) 2024 06/15/2021, 12/08/2020, 04/13/2020, Additional history exists DEPRESSION SCREENING 12/19/2024 12/20/2023 HEMOGLOBIN A1C 01/15/2025 07/16/2024, 1203/2023, 09/28/2023, Additional history exists BLOOD PRESSURE 01/19/2025 07/20/2024 CREATININE LEVEL 07/16/2025 07/16/2024, 06/2024, 02/27/2024, Additional history exists POTASSIUM LEVEL 07/16/2025 07/16/2024, 03/0 06/2024, 02/27/2024, Additional history exists Adult Td,Tdap Booster 08/23/2031 08/22/2021, 008 PNEUMOCOCCAL VACCINES (50+ years) Completed 12/04/2019, 11/04/2014, 09/09/2006 HEPATITIS A VACCINES Aged Out No long er eligible based on patient's age to complete this topic HIB VACCINES Aged Out No longer eligi ble based on patient's age to complete this topic MENINGOCOCCAL VACCINES (ACWY) Aged Out No longer eligible based on patient's age to complete this topic MENINGOCOCCAL VACCINES (B) Aged Out N o longer eligible based on patient's age to complete this topic Medical Devices Not on file Procedures Procedure Name Priority Date/Time Associated Diagnosis Comments HEMOGLOBIN A1C Routine 07/16/2024 12:00 PM EDT Benign essential hypertension Impaired fasting glucose CBC AND DIFFERENTIAL Routine 07/16/2024 12:00 PM EDT Benign essential hypertension MAGNESIUM Routine 07/16/2024 12:00 PM EDT Benign essential hypertension COMPREHENSIVE METABOLIC PANEL Routine 07/16/2024 12:00 PM EDT Benign essential hypertension from Last 3 Months Results * (ABNORMAL) Comprehensive metabolic panel (07/16/2024 12:00 PM EDT) SODIUM 137 133 - 146 mmol/L [facility] POTASSIUM 4.8 3.3 - 5.1 mmol/L [facility] CHLORIDE 101 96 - 108 mmol/L [facility] CO2 25 21 - 35 mmol/L [facility] BUN 31(H) 6 - 19 mg/dL [facility] CREATININE 1.70(H) 0.5 - 1.5 mg/dL [facility] GLUCOSE 107(H) 70 - 99 mg/dL [facility] ALBUMIN 4.0 3.9 - 4.8 g/dL [facility] TOTAL PROTEIN 7.6 6.5 - 8.0 g/dL [facility] CALCIUM 9.9 8.4 - 10.3 mg/dL [facility] ALKALINE PHOSPHATASE 94 39 - 117 U/L [facility] TOTAL BILIRUBIN 0.4 0.0 - 1.2 mg/dL [facility] AST 26 0 - 37 U/L [facility] ALT 11 0 - 40 U/L [facility] GLOBULIN 3.6 1 - 4.8 g/dL [facility] EGFR 40(L) >59 mL/min/1.7 3m2 [facility] Comment:Estimated glomerular filtration rate calculated using the CKD-EPI refit equation. ANION GAP 16 10 - 20 mmol/L [facility] Blood 07/16/2024 12:0 0 PM EDT 07/16/2024 12:03 PM EDT us Erasmo Britt MD LAB BLOOD ORDERABLES Final Re sult [facility] [address] [place] [address] * (ABNORMAL) CBC and differential (07/16/2024 12:00 PM EDT) WBC 9.65 4.00 - 11.00 K/uL [facility] RBC 4.14(L) 4.50 - 5.90 M/uL [facility] HGB 13.6 13.5 - 17.5 g/dL [facility] HCT 41.6 41.0 - 53.0 % [facility] PLT 358 150 - 450 K/uL [facility] MCV 100.5(H) 80.0 - 100.0 fL [facility] MCH 32.9(H) 27.0 - 31.0 pg [facility] MCHC 32.7 32.0 - 36.0 g/dL [facility] RDW 13.4 11.5 - 14.5 % [facility] MPV 10.3 8.4 - 12.0 fL [facility] NRBC 0.00 0.00 /100 WBCs [facility] ABSOLUTE NRBC 0.00 0.00 K/uL [facility] DIFF METHOD Auto [facility] NEUTS 63.5 48.0 - 76.0 % [facility] LYMPHS 24.0 18.0 - 41.0 % [facility] MONOS 10.6 4.0 - 11.0 % [facility] EOS 1.0 0.0 - 5.0 % [facility] BASOS 0.6 0.0 - 1.5 % [facility] Granulocytes, immature (%) 0.3 0.0 - 0.9 % [facility] ABSOLUTE NEUTS 6.12 1.92 - 7.60 K/uL [facility] ABSOLUTE LYMPHS 2.32 0.72 - 4.10 K/uL [facility] ABSOLUTE MONOS 1.02 0.16 - 1.10 K/uL [facility] ABSOLUTE EOS 0.10 0.00 - 0.50 K/uL [facility] ABSOLUTE BASOS 0.06 0.00 - 0.15 K/uL [facility] Granulocytes, immature 0.03 0.00 - 0.09 K/uL [facility] Blood 07/16/2024 12:0 0 PM EDT 07/16/2024 12:03 PM EDT Erasmo Britt MD LAB BLOOD ORDERABLES Final Re sult Performing Organization Address City/[facility]/ZIP Co de Phone Number [address] [address] * Magnesium (07/16/2024 12:00 PM EDT) MAGNESIUM 1.9 1.6 - 2.6 mg/dL [facility] Blood 07/16/2024 12:0 0 PM EDT 07/16/2024 12:03 PM EDT Erasmo Britt MD LAB BLOOD ORDERABLES Final Re sult Performing Organization Address [facility] Co de Phone Number [address] [address] * (ABNORMAL) Hemoglobin A1c (07/16/2024 12:00 PM EDT) HEMOGLOBIN A1C 6.6(H) 4.3 - 5.8 % [facility] Blood 07/16/2024 12:0 0 PM EDT 07/16/2024 12:03 PM EDT Erasmo Britt MD LAB BLOOD ORDERABLES Final Re sult Performing Organization Address [facility] Co de Phone Number [address] [address] from Last 3 Months Insurance MEDICARE PART A & B [employer] SUPPLEMENT MEDICARE PART A & B [employer] MEDEX SUPPLEMENT MEDICARE PART A & B [employer] MEDEX SUPPLEMENT MEDICARE PART A & B [id number] [employer] MEDEX SUPPLEMENT MEDICARE PART A & B [id number] [employer]OSS MED[employer] SUPPLEMENT MEDICARE PART A & B [employer] MED[employer] SUPPLEMENT MEDICARE PART A & B [employer] MED[employer] SUPPLEMENT MEDICARE PART A & B [facility] MEDEX SUPPLEMENT MEDICARE PART A & B [employer] SUPPLEMENT Care Teams Manager Community Relationship Specialty Start Date End Date Erasmo Britt MD [address] [place] [address] [email or web address] PCP - General Internal Medicine 02/20/19 Erasmo Britt MD [address] [place] [address] [email or web address] Insurance Assigned Provider 05/14/23 Nisha Tatum MD [address] [place] [phone] [email or web address] 05/18/19 Rajinder Cody MD [address] [phone] [email or web address] 05/18/19 Hira Saxena DO [address] [place] [phone] [email or web address] Hematology and Oncology 02/14/24 Additional Source Comments The information contained in this document represents components of the legal health record. It is not the complete legal health record.[facility]
--- OUTSIDE RECORDS SUMMARY | 2024-10-10 10:16 | XMS_ITS | Clinical Summary ---
Author Organization [facility] Address [address] [address] Phone Care Team Providers Care Chemical Engineering Technician Name Role Phone Erasmo Britt MD Primary Care Provider [phone] Allergies Active Allergy Reactions Criticality Noted Date [...] EVERY DAY 90 tablet 3 07/12/2023 Active calcitriol (ROCALTROL) 0.25 MCG capsule TAKE ONE CAPSULE BY MOUTH EVERY OTHER DAY 45 capsule 3 01/08/2024 Active ergocalciferol 1.25 MG (65970 UT) capsule TAKE ONE CAPSULE BY MOUTH ONCE WEEKLY 9 capsule 3 05/16/2024 Active Active Problems Problem Noted Date Diagnosed [...] Encounters Date Type Department Care Team Description 09/24/2024 Orders Only [facility] [address] [phone] Rajinder Cody MD Stage 3b chronic kidney disease (HCC); Renal osteodystrophy; Essential hypertension from Last 3 Months Immunizations Immunization Administration Dates Next Due Influenza Split High Dose Pr eservative Free IM 12/20/2023,12/01/2018,11/28/2017,11/19,11/05/2013,12/12/2012 Influenza TIV (IM) 2011,01/06/2011 Influenza, Quadrivalent, Pre servative Free 11/07/2016 Influenza, Unspecified 11/12/2019,07/11/2007 Moderna SARS-COV-2 12/08/2020,04/13/2020, 021 Pneumococcal Conjugate 13-Valent 11/04/2014 Pneumococcal Polysaccharide 12/04/2019, 7 Td, Unspecified 07/11/2007 Tdap 08/22/2021 Zoster 05/25/2011 Family History Medical History Relation [...] Sign Reading Time Taken Comments Blood Pressure 124/65 04/24/2024 3:07 PM EDT Pulse 78 04/24/2024 3:07 PM EDT Temperature - - Respiratory Rate - - Oxygen Saturation 98% 04/24/2024 3:07 PM EDT Inhaled Oxygen Concentration - - Weight 83.7 kg (184 lb 9.6 oz) 04/24/2024 3:07 P M EDT Height 172.7 cm (5' 8 ) 10/21/2020 2:00 PM EDT Body Mass Index 28.07 10/21/2020 2:00 PM EDT Plan of Treatment Upcoming Encounters Date Type Department Care Team (Late st Contact Info) Description 10/16/2024 3:15 PM EDT Office Visit [facility] [address] [phone] Rajinder Cody MD [address] [phone] Health Maintenance Due Date Last Done Comments Diabetes: Ophthalmology Exam 01/13/2022 Diabetes: Pedal Pulse Checked 01/13/2022 Diabetes: Sensory Foot Exam 01/13/2022 Diabetes: Visual Foot Exam 01/13/2022 Diabetes: Hemoglobin A1C 04/11/2022 022, 04/15/2021, 01/16/2019 Influenza Vaccine (#1) 2024 4, 11/12/2019, 12/01/2018, Additional history exists Pneumococcal Vaccine: 50+ Years Completed 12/04/2019, 11/04/2014, 09/09/2006 Pneumococcal Vaccine: Peds (0 to 5 Years) and At-Risk Patients (6 to 49 Years) Discontinued 12/04/2019, 11/04/2014, 09/09/2006 Hepatitis B Vaccine Aged [...] EST) Hemoglobin A1C 6.6 % [facility] Comment: Hemoglobin A1C Reference Range Adults: 4.8 - 6.0 % Non diabetic: < 6.0 % Goal: < 7.0 % Additional Action Suggested: > 8.0 % Note: Hemoglobin A1c results are invalid for patients with abnormal amounts of HbF. Blood transfusions may impact the HbA1c concentration in the patient sample. Estimated Average Glucose 143 mg/dL [facility] Comment: eAG = Estimated average glucose which is %A1C expressed as average glucose, using the formula of the L0C-Tomhwvl Average Glucose study (ADAG), Diabetes Care, Vol.31,#8, Sep. 2007 Blood specimen (specimen) Venous blood / Unknown 01/11/2022 11:21 AM EST 01/11/2022 11:21 AM EST us Rajinder Cody MD LAB BLOOD ORDERABLES Final Re sult [facility] from Last 3 Months or Most Recently Relevant to Health Maintenance Insurance [facility] Medicare [facility] Medicare Care Teams Chemical Engineering Technician Relationship Specialty Start Date End Date Erasmo Britt MD [address] [place] [address] PCP - General 02/18/20
--- OUTSIDE RECORDS SUMMARY | 2024-10-10 10:16 | XMS_ITS | Clinical Summary ---
Author Organization [facility] ity Address [address] [place] [address] Care Team Providers Care Needle Loom Operator Helper Name Role Phone Unavailable Primary Care Provider [...] Vaccines (1 of 2) 1990 RSV Immunization Adult Patie nts (1 - 1-dose 75+ series) 11/26/2015 COVID-19 Vaccine (1 - 2023-2 5 season) 2023 Depression Screening 02/08/2024 Influenza Vaccine (#1) 2024 HIB Vaccines Aged Out No longer eligi [...] age to complete this topic Meningococcal B Vaccine Aged Out No l onger eligible based on patient's age to complete this topic RSV Immunization Patients Un aramis 20 months Aged Out No longer eligible b ased on patient's age to complete this topic Varicella Vaccines Aged Out No longer eligible based on patient's age to complete this topic
--- OUTSIDE RECORDS SUMMARY | 2024-10-10 10:16 | XMS_ITS | Encounter Summary ---
Author Organization [facility] Address [address] [facility] [address] [place] [address] Phone Care Team Providers Care Software Trainer Name Role Phone Erasmo Britt MD Unavailable [phone] Erasmo Britt MD Primary Care Provider [phone] Nisha Tatum MD Unavailable [phone] Rajinder Cody MD Unavailable [phone] Hira Saxena DO Unavailable [phone] Reason for Referral * MRI/CAT Scan - Closed Specialty Diagnoses / Procedures Referred By Renny barber Referred To Contact Radiology Diagnoses Unexplained weight loss Procedures MRI Pelvis (GI/) Erasmo Britt MD Phone: tel: fax: [email or web address] Referral ID Status Reason Start Date Expiration Date Visits Re quested Visits Authorized [id number] Closed 12/30/2023 12/29/2024 1 1 Encounter Details Date Type Department Care Team (Latest Contact Info) Description 12/30/2023 Ancillary Orders [facility] Internal Medicine [address] [place], [place] [phone] Erasmo Britt MD [address] [place], [place] [phone] [email or web address] Unexplained weight loss (Primary Dx) Social History [...] Info) Description 06/26/2024 Procedure Pass Echo Lab [address] [place] [address] 12/27/2024 8:15 AM EST Appointment Echo Lab [address] [place] [address] Rodriguez Brooke, DO [address] [facility] [address] [place] [address] 12/31/2024 11:00 AM EST Office Visit [facility] [place] [facility] [address] [place], [place] [phone] Erasmo Britt MD [address] [place], [place] [phone] 02/18/2025 7:30 AM EST Office Visit [facility] [address] [facility] 3rd Floor, [address] [place], [place] [phone] Rodriguez Brooke DO [address] [facility] [address] [place] [address] documented as of this encounter Results * MRI PELVIS WITHOUT CONTRAST (03/04/2024 5:45 PM EST) Anatomical Region Laterality Modality Pelvis Magnetic Resonan ce 03/05/2024 7:59 AM EST Impressions 03/05/2024 8:12 AM EST 1. No cause for weight loss identified by noncontrast pelvic MRI. 2. Incidental findings, as above, including colonic diverticulosis and left lower pole renal cysts. Narrative 03/05/2024 8:12 AM EST MRI PELVIS WITHOUT CONTRAST Referring clinician's provided indication for this examination in [facility]: unexplained weight loss, hx renal insufficiency, ordering MD wishes to avoid iodinated contrast TECHNIQUE: Multiplanar MR imaging of the pelvis was performed using T1, T2, and diffusion weighted techniques. No intravenous gadolinium contrast was administered. The examination was prematurely terminated at the patient's request. COMPARISON: None. ABSENCE OF INTRAVENOUS CONTRAST DECREASES SENSITIVITY FOR DETECTION OF FOCAL LESIONS AND VASCULAR PATHOLOGY. FINDINGS: Bladder: Partially collapsed which limits its assessment without gross mass. Bowel: No dilatation or wall thickening. Colonic diverticulosis is noted without acute inflammatory change to suggest acute diverticulitis. Other pelvic organs: The prostate gland measures up to 5.4 x 3.1 cm. The examination was not tailored in the assessment of prostate cancer. No gross or suspicious prostate masses are seen. Peritoneum: No masses or fluid. There is a small fat-containing umbilical hernia. Lymph Nodes: No lymphadenopathy. Vessels: There is atherosclerotic irregularity but no aneurysm of the distal visualized abdominal aorta. Bones/Soft Tissues: There is a curvature of the lumbar spine with mild to moderate multilevel degenerative change. There is heterogeneity to the bone marrow signal. There is grade 1 anterolisthesis of L4 on L5. No gross marrow replacing process is seen. There is a right femoroacetabular paralabral cyst measuring up to 15 mm. There are left lower pole renal cysts measuring up to 3.5 cm. Procedure Note Andres Durant MD - 03/05/2024 MRI PELVIS WITHOUT CONTRAST Referring clinician's provided indication for this examination in Epic:unexplained weight loss, hx renal insufficiency, ordering MD wishes toavoid iodinated contrast TECHNIQUE: Multiplanar MR imaging of the pelvis was performed using T1,T2, and diffusion weighted techniques. No intravenous gadolinium contrastwas administered. The examination was prematurely terminated at thepatient's request. COMPARISON: None. ABSENCE OF INTRAVENOUS CONTRAST DECREASES SENSITIVITY FOR DETECTION OFFOCAL LESIONS AND VASCULAR PATHOLOGY. FINDINGS: Bladder: Partially collapsed which limits its assessment without grossmass. Bowel: No dilatation or wall thickening. Colonic diverticulosis is notedwithout acute inflammatory change to suggest acute diverticulitis. Other pelvic organs: The prostate gland measures up to 5.4 x 3.1 cm. Theexamination was not tailored in the assessment of prostate cancer. Nogross or suspicious prostate masses are seen. Peritoneum: No masses or fluid. There is a small fat-containing umbilicalhernia. Lymph Nodes: No lymphadenopathy. Vessels: There is atherosclerotic irregularity but no aneurysm of thedistal visualized abdominal aorta. Bones/Soft Tissues: There is a curvature of the lumbar spine with mild tomoderate multilevel degenerative change. There is heterogeneity to thebone marrow signal. There is grade 1 anterolisthesis of L4 on L5. No grossmarrow replacing process is seen. There is a right femoroacetabularparalabral cyst measuring up to 15 mm. There are left lower pole renal cysts measuring up to 3.5 cm. IMPRESSION: 1. No cause for weight loss identified by noncontrast pelvic MRI. 2. Incidental findings, as above, including colonic diverticulosis andleft lower pole renal cysts. Erasmo Britt MD IMG MR PELVIS Final Result documented in this encounter Visit Diagnoses Diagnosis Unexplained weight loss- Primary Loss of weight Unexplained weight loss Loss of weight documented in this encounter Additional Health Concerns Assessment Noted Time PHQ-2 Depression Total Score: 2 12/20/19 24 9:01 AM EST documented as of this encounter Care Teams Software Trainer Relationship Specialty Start Date End Date Erasmo Britt MD [address] [place] [address] PCP - General Internal Medicine 02/20/19 Erasmo Britt MD [address] [place] [address] Insurance Assigned Provider 05/14/23 Nisha Tautm MD [address] [place] [id number] [email or web address] 05/18/19 Rajinder Cody MD [address] [facility] [address] [place] [address] [email or web address] 05/18/19 Hira Saxena DO [address] [place] [phone] [email or web address] Hematology and Oncology 02/14/24 documented as of this encounter Additional Source Comments The information contained in this document represents components of the legal health record. It is not the complete legal health record.[facility]
[2024-10-10 12:58] LABS: MANUAL DIFF FLAG NO
[2024-10-10 13:05] LABS: Appearance Urine Clear; Glucose Urine UA >=1000 mg/dL (Negative); PH 5.5 (5.0-9.0); Specific Gravity - Urine 1.025 (1.005-1.025); UMIC TRIGGER UA YES
[2024-10-10 13:07] LABS: Hematocrit 38.8 % (42.0-52.0); Hemoglobin 13.2 g/dl (14.0-18.0); Imm Gran Abs Auto 0.03 X10*3/uL (0.00-0.03); Imm Gran Pct Auto 0.4 % (0.0-0.4); Lymphocytes Absolute Auto 2.0 X10*3/uL (1.2-4.9); Mean Corpuscular HGB Conc 34.0 g/dl (31.0-36.0); Mean Corpuscular Hemoglobin 33.4 pg (27.0-33.0); Mean Corpuscular Volume 98.2 fL (80.0-98.0); NRBC Abs Auto 0.000 X10*3/uL (0.0-0.012); NRBC Pct Auto 0.0 /100WBC (0.0-0.2); Platelet Count 349 X10*3/uL (160-400); Red Blood Count 3.95 X10*6/uL (4.60-5.80); White Blood Count 8.3 X10*3/uL (4.8-10.8)
[2024-10-10 13:27] LABS: Parathyroid Hormone Intact 113.4 pg/mL (8.7-77.1)
[2024-10-10 13:34] LABS: Albumin Level 4.2 g/dL (3.5-5.0); Anion Gap 12 (12-20); Blood Urea Nitrogen 30 mg/dL (9-16); Calcium 9.4 mg/dL (8.4-10.2); Carbon Dioxide 26 mmol/L (22-29); Chloride 109 mmol/L (96-108); Estimated Glomerular Filt Rate 43; Magnesium 2.0 mg/dL (1.6-2.6); Potassium 4.6 mmol/L (3.3-5.1); Sodium 142 mmol/L (135-145)
[2024-10-10 13:38] LABS: Microalbum/Creatinine Ratio Ur 220.7 ug/mg cr (<30); Protein/Creatinine Ratio, Ur 0.34 (<0.2); Total Protein Urine Random 30 mg/dL (<12)
== END 2024-10-10 09:28 | disposition home or self-care (01) ==
LOC: HO.HMGCLDS 09:27
PROVIDERS: PCP Internal Medicine; Visit Provider Internal Medicine Nephrology
DX: I12.9 Hypertensive chronic kidney disease with stage 1 through stage 4 chronic kidney disease, or unspecified chronic kidney disease (principal); N18.32 Chronic kidney disease, stage 3b; N25.0 Renal osteodystrophy
CPT/HCPCS: 36415; 80051; 81001; 82040; 82043; 82306; 82310; 82565; 82570; 83735; 83970; 84100; 84156; 84520; 85025; 87086

== ENCOUNTER 2025-01-02 07:53 | Outpatient (REF) | payer MEDICARE, SELFPAY ==
--- OUTSIDE RECORDS SUMMARY | 2024-12-27 07:59 | XMS_ITS | Encounter Summary ---
Author Organization [facility] Address [address] [facility] [address] [place] [address] Phone Care Team Providers Care Freight Delivery Driver Name Role Phone Erasmo Britt MD Unavailable [phone] Erasmo Britt MD Primary Care Provider [phone] Nisha Tatum MD Unavailable [phone] Rajinder Cody MD Unavailable [phone] Hira Saxena DO Unavailable Reason for Referral * Outpatient Procedure - Closed Specialty Diagnoses / Procedures Referred By Renny barber Referred To Contact Diagnoses Shortness of breath Procedures Adult Echo TTE Rodriguez Brooke DO [address] [address] Phone: tel: fax: [email or web address] Referral ID Status Reason Start Date Expiration Date Visits Re quested Visits Authorized [id number] Closed 06/26/2024 1 1 Reason for Visit * Outpatient Procedure - Closed Specialty Diagnoses / Procedures Referred By Renny barber Referred To Contact Diagnoses Shortness of breath Procedures Adult Echo TTE Rodriguez Brooke DO [address] [address] Phone: tel: fax: [email or web address] Referral ID Status Reason Start Date Expiration Date Visits Re quested Visits Authorized [id number] Closed 06/26/2024 1 1 Encounter Details Date Type Department Care Team (Latest Contact Info) Description 12/27/2024 7:59 AM EST - 12/27/2024 11:59 PM EST Hospital Encounter Echo Lab [address] [place] [address] Rodriguez Brooke DO [address] [facility] [address] [place] [address] [email or web address] Discharge Disposition: Home or Self Care Social History Tobacco Use Types Packs/Day Years [...] AM EST documented as of this encounter Last Filed Vital Signs Vital Sign Reading Time Taken Comments Blood Pressure 135/65 12/27/2024 7:59 AM EST Pulse - - Temperature - - Respiratory Rate - - Oxygen Saturation - - Inhaled Oxygen Concentration - - Weight 82.8 kg (182 lb 8.7 oz) 12/27/2024 7:59 A M EST Height 175.3 cm (5' 9.02 ) 12/27/2024 7:59 AM ES T Body Mass Index 26.94 12/27/2024 7:59 AM EST documented in this encounter Medications at Time of Discharge allopurinol (ZYLOPRIM) 100 MG tabletIndications: Hyperuricemia TAKE TWO TABLETS BY MOUTH ONCE DAILY 180 tablet 3 05/17/2024 atenolol (TENORMIN) 25 MG tabletIndications: Hypertension TAKE 1 TABLET BY MOUTH DAILY. 90 tablet 3 07/30/2024 atorvastatin (LIPITOR) 40 MG tabletIndications: Hyperlipidemia TAKE ONE TABLET BY MOUTH ONCE DAILY 90 tablet 3 07/09/2024 calcitriol (ROCALTROL) 0.25 MCG capsule Take 0.25 mcg by mouth every other day. ergocalciferol (DRISDOL) 50,000 unit capsule Take 1.25 mcg by mouth once a week. 03/27/2020 JARDIANCE 10 mg tablet Take 10 mg by mouth daily. 10/12/2023 lisinopril (PRINIVIL,ZESTRIL) 20 MG tabletIndications: Benign essential hypertension Take 1 tablet (20 mg total) by mouth daily. 90 tablet 3 05/07/2024 predniSONE (DELTASONE) 10 MG tabletIndications: Right sided sciatica Take 6 pills orally for 2 days, 5 pills for 2 days, 4 pills for 2 days, 3 pills for 2 days, 2 pills for 2 days then 1 pill for 2 days. 42 tablet 12/17/2024 traMADoL (ULTRAM) 50 mg tabletIndications: Chronic pain of left knee 1-2 TABLETS PO BID PRN LEFT KNEE PAIN 28 tablet 1 06/21/2024 5 documented as of this encounter Plan of Treatment Upcoming Encounters Date Type Department Care Team (Late st Contact Info) Description 02/18/2025 7:30 AM EST Office Visit [facility] [address] [facility] 3rd Floor, [address] [place] [address] Rodriguez Brooke DO [address] [facility] [address] [place] [address] 06/07/2025 8:30 AM EDT Office Visit [facility] Internal Medicine [address] [place], [place] [phone] Erasmo Britt MD [address] [place], [place] [phone] [email or web address] documented as of this encounter Procedures Procedure Name Priority Date/Time Associated Diagnosis Comments TTE COMPREHENSIVE Routine 12/27/2024 8:4 0 AM EST Shortness of breath documented in this encounter Results * (ABNORMAL) TTE COMPREHENSIVE (12/27/2024 8:40 AM EST) Body Surface Area 1.99 m2 Height 175 cm Weight 83 kg Interventricular Septum Thickness 13 6 - 11 mm Left Ventricle Internal Diameter End Diastole 42 42 - 58 mm Left Ventricle Internal Diameter End Systole 36 <40 mm Left Ventricular Outflow Tract Diameter 20.0 mm Left Ventricular Posterior Wall Thickness 10 6 - 11 mm Left Ventricle Ea Lateral Wave Speed 5.4(A) cm/s Left Ventricle Ea Septal Wave Speed 4.2(A) cm/s Ejection Fraction 40 50 - 75 Percent Left Atrium Dimension Anterior-Posterior 37 15 - 40 mm Aortic Valve Mean Gradient 5 mmHg Aortic Valve Time Velocity Integral 342.0 mm Aortic Valve Peak Velocity 1.5 m/s Aortic Valve Peak Gradient 8 mmHg Aortic Arch Diameter 21 mm Aortic Sinus Diameter 36 <40 mm Ascending Aorta Diameter 35 <36 mm Mitral Valve Deceleration Time 274 ms Left Ventricle A Wave Speed 86.6 cm/s Left Ventricle E Wave Speed 39.2 cm/s Pulmonary Artery End Diastolic Velocity 1.3 m/s Pulmonary Valve Peak Velocity 0.9 m/s Pulmonary Valve Peak Gradient 3 mmHg Right Ventricle Basal Diameter 34 25 - 41 mm Tricuspid Valve Peak Velocity 2.5 m/s Raw LV EF% 27 % MV E/E' Tissue Velocity Lateral 7.26 Relative Wall Thickness 0.48 0.22 - 0.42 Left Ventricle indexed to BSA 84.1 g/m2 MV E/A ratio 0.5 MV E/e' septal 9.33 Left Ventricle E/e' Average 8.3 Aortic Valve Prosthetic Peak Gradient 8 mmHg Aortic Valve Sinus Index by BSA 18 mm/m2 Aorta Sinus Index by Height 2.06 cm/m Aorta Sinus CSA index by Height 5.81 cm2/m Ascending Aorta Index 18 mm/m2 Asc Aorta CSA Index by Height 5.50 cm2/m Right Ventricle to Right Atrium Pressure Gradient 25 mmHg Right Ventricle Peak Systolic Pressure (Assuming RAP 10) 35 mmHg MGB CV ECHO TV RVSP (ASSUMING RAP OF 5) 30 mmHg RVSP (Exclusive of RAP) 25 mmHg Pulmonic Valve Prosthetic Peak Gradient 3 mmHg Ascending Aorta Index 18 mm Aortic Sinus Index 18 mm Ascending Aorta Diameter 18 mm Aortic Valve Sinus Index 1 18 20 - 32 mm AO ASC DIAM BSA INDEX 17.59 Echo E/Ea 9.33 Aortic Valve Prosthetic Mean Gradient 5 mmHg Left Atrial Volume Index 27 16 - 34 mL/m2 Right Ventricle Peak Systolic Pressure 28 mmHg Right Ventricle TAPSE 14 >=17 mm Right Ventricle Pulse Doppler S Wave 8.8 >=9.5 cm/s Left Atrial Volume 53 mL Left Atrial Volume Index by Height 30 mL/m Right Atrium Area 13 cm2 Right Atrium Area index 7 cm2/m2 Right Atrium Pressure Estimated 3 mmHg Pulmonary Artery End Diastolic Pressure 10 mmHg Anatomical Region Laterality Modality Heart Ultrasound Narrative 12/28/2024 7:05 AM EST Images from the original result were not included. 1. The indication for the study is shortness of breath. The ejection fraction of the left ventricle is mildly reduced visually estimated it is between 45 and 55%. There was a wide QRS with sinus rhythm there was abnormal septal contraction pattern perhaps leading to the reduced ejection fraction. Diastolic function was normal left ventricular thickness was mildly increased and there were no obvious regional wall motion abnormalities. 2. Normal RV size with mildly reduced RV function. 3. Trileaflet aortic valve there is no evidence of aortic stenosis the mean gradient is 5 mmHg the ascending aortic root measures 36 mm. 4. Trace mitral and mild tricuspid sufficiency, the PA pressure is normal in this study. 5. Normal pericardium and when compared to the prior echo done in 2022, the ejection fraction on this study is slightly lower. Left Ventricle The left ventricle is normal in size. There is LV hypertrophy with upper septal predominance. There is borderline concentric hypertrophy. Left ventricular systolic function is at the lower limits of normal. The LV ejection fraction is 50-55% (visually estimated). LV diastolic function appears within normal limits for age. The e' septal wave velocity is 4.2 cm/s. The e' lateral wave velocity is 5.4 cm/s. Right Ventricle The right ventricle is normal in size. There is reduced right ventricular systolic function. TAPSE is 14 mm (normal: >= 17 mm). RV S' wave is 8.8 cm/s (normal: >= 9.5 cm/s). Left Atrium The left atrium is normal in size. Right Atrium The right atrium is normal in size. The IVC is suboptimally visualized. Mitral Valve There is thickening of both mitral leaflets. There is no mitral stenosis. There is trace mitral regurgitation. Tricuspid Valve The tricuspid valve appears normal. There is no tricuspid stenosis. There is mild tricuspid regurgitation. The RV systolic pressure was calculated at 28 mmHg (using TR peak velocity of 2.5 m/s and assuming an RA pressure of 3 mmHg). Aortic Valve The aortic valve is tricuspid. There is leaflet thickening. There is no aortic stenosis. There is trace aortic regurgitation. The aortic sinuses are normal in size. The ascending aorta is dilated. The ascending aortic diameter is 35 mm. The ascending aorta index by BSA is 18 mm/m2. Pulmonic Valve The pulmonic valve appears normal. There is no pulmonic stenosis. There is trace pulmonic regurgitation. Pericardium There is no pericardial effusion. General Findings The image quality was adequate. Technique(s) used in the evaluation: Multiplane, Color flow Doppler, Spectral Doppler and Epiaortic scan. Comparison Findings Compared to prior study on 01/18/2023, IAS/IVS The interatrial septum appears normal. There is no evidence of patent foramen ovale (PFO). us Rodriguez Brooke DO CV ECHO ORDERABLES Final Resu lt documented in this encounter Visit Diagnoses Diagnosis Shortness of breath documented in this encounter Additional Health Concerns Assessment Noted Time PHQ-2 Depression Total Score: 2 12/20/19 24 9:01 AM EST documented as of this encounter Care Teams Freight Delivery Driver Relationship Specialty Start Date End Date Erasmo Britt MD [address] [place] [address] [email or web address] PCP - General Internal Medicine 02/20/19 Erasmo Britt MD [address] [place] [address] [email or web address] Insurance Assigned Provider 05/14/23 Nisha Tatum MD [address] [place] [phone] [email or web address] 05/18/19 Rajinder Cody MD [address] [address] [email or web address] 05/18/19 Hira Saxena DO [address] [place] [id number] [email or web address] Hematology and Oncology 02/14/24 documented as of this encounter Additional Source Comments The information contained in this document represents components of the legal health record. It is not the complete legal health record.[facility]
--- OUTSIDE RECORDS SUMMARY | 2024-12-31 11:00 | XMS_ITS | Encounter Summary ---
Author Organization [facility] Address [address] [place] [address] [place] [address] Phone Care Team Providers Care Turner Machine Name Role Phone Erasmo Britt MD Unavailable [phone] Erasmo Britt MD Primary Care Provider [phone] Nisha Tatum MD Unavailable [phone] Rajinder Cody MD Unavailable [phone] Hira Saxena DO Unavailable [phone] Reason for Visit * Reason Comments Medicare Annual Wellness Visit Hannaen t Encounter Details Date Type Department Care Team (Latest Contact Info) Description 12/31/2024 11:00 AM EST Office Visit [facility] Internal Medicine [address] [place], [place] [id number] Erasmo Britt MD [address] [place] [address] [email or web address] Routine general medical examination at a health care facility (Primary Dx); Need for prophylactic vaccination and inoculation against influenza; Testosterone deficiency; Pure hypercholesterolemia; Essential hypertension; Chronic renal failure, stage 3b; Gastroesophageal reflux disease, unspecified whether esophagitis present Social History Tobacco Use Types Packs/Day Years Used Date Smoking Tobacco: Former Cigarettes 1.5 26 1 962 - 1977 Smokeless Tobacco: Never Alcohol Use [...] ecorded Denied Basic Needs Not on file 12/31/2024 In the past 12 months have y ou been in a relationship with a person who hurts, threatens, or tries to control you? No 12/31/2024 Worried food would run out Not on file 12/31 In the past 12 months have y ou been in a relationship with a person who hurts, threatens, or tries to control you? No 12/31/2024 Sex and Gender Information Value Date Recorded Sex Assigned at Male 12/22/2021 8:56 AM EST Legal Sex Male 10:12 PM EDT Gender Identity Male 12/22/2021 8:56 AM EST Sexual Orientation Straight 12/22/2021 8: 56 AM EST documented as of this encounter Last Filed Vital Signs Vital Sign Reading Time Taken Comments Blood Pressure 132/74 12/31/2024 11:50 AM EST Pulse 56 12/31/2024 11:48 AM EST Temperature 36.2 C (97.1 F) 12/31/2024 10:51 AM EST Respiratory Rate - - Oxygen Saturation 96% 12/31/2024 10:51 AM EST Inhaled Oxygen Concentration - - Weight 81.5 kg (179 lb 9.6 oz) 12/31/2024 10:51 AM EST Height 172.7 cm (5' 8 ) 12/31/2024 10:51 AM EST Body Mass Index 27.31 12/31/2024 10:51 AM EST documented in this encounter Progress Notes * Interface Provider, Scanning - 12/31/2024 12:00 AM EST Subjective Kj Hernandez is a 84 y.o. male. History of Present Illness HPI: Patient enters for a SAWV he is feeling ok. He has hypertension which is stable on his currentmedicines. No headaches or chest pains. He has pure hypercholesteremia and follows a low fat diet. He does not erectile dysfunction. He's had this in the past when he had testosterone deficiency. He's tried Cialis in the past and doesn't want to use any medication. I told him we could send him to a urologist but patient declines at this time. He has renal failure. He has GERD and denies any recent heart burn. Current Outpatient Medications Ordered in [facility] Medication Sig allopurinol (ZYLOPRIM) 100 MG tablet TAKE TWO TABLETS BY MOUTH ONCE DAILY atenolol (TENORMIN) 25 MG tablet TAKE 1 TABLET BY MOUTH DAILY. atorvastatin (LIPITOR) 40 MG tablet TAKE ONE TABLET BY MOUTH ONCE DAILY calcitriol (ROCALTROL) 0.25 MCG capsule Take 0.25 mcg by mouth every other day. ergocalciferol (DRISDOL) 50,000 unit capsule Take 1.25 mcg by mouth once a week. (Patient taking differently: Take 1.25 mcg by mouth every 30 (thirty) days.) JARDIANCE 10 mg tablet Take 10 mg by mouth daily. lisinopril (PRINIVIL,ZESTRIL) 20 MG tablet Take 1 tablet (20 mg total) by mouth daily. Review of Systems Constitutional: Negative for unexpected weight change. HENT: Negative for changes in hearing. Eyes: Negative for unexpected vision change. Respiratory: Negative for cough and shortness of breath. Cardiovascular: Negative for chest pain and palpitations. Gastrointestinal: Negative for abdominal pain, blood in stool and constipation. Genitourinary: Positive for erectile dysfunction. Negative for problems with urination and blood inurine. Neurological: Negative for dizziness, headaches and changes in memory. Skin: Negative for persistent rash. Musculoskeletal: Negative for joint pain. Objective Physical Exam BP 132/74 (BP Location: Left arm, Patient Position: Sitting, Cuff Size: Medium) Pulse (!) 56 Temp 36.2 ??C (97.1 ??F) (Oral) Ht 172.7 cm (5' 8 ) Wt 81.5 kg (179 lb 9.6 oz) SpO2 96% BMI 27.31 kg/m?? CONSTITUTIONAL: Appears well- developed and well nourished. Cooperative, patient is alert. HEENT:PERRTL, EOM intact, fundi benign, TM's clear, throat clear. NECK: supple, no thyroid megaly, no adenopathy. LUNGS: clear to A&P,no wheezing/rhonichi/rales. HEART: RRR S1S2 without murmurs, rubs or gallops. ABDOMEN: bowel sounds: normal, soft non tender without masses. EXTREMITIES: without edema, clubbing or cyanosis. : Testicles normal, no masses. RECTAL/PROSTATE:Deferred Assessment & Plan 1. Routine general medical examination at a health care facility (Primary) 2. Need for prophylactic vaccination and inoculation against influenza - Influenza Vaccine (65yo up) High-Dose Trivalent Preservative Free IM 3. Testosterone deficiency - Testosterone, Total and Free, Equilibrium Dialysis/Mass Spectrometry - Prostate Specific Antigen (PSA), Monitoring 4. Pure hypercholesterolemia cont diet, check labs - Comprehensive Metabolic Panel (CMP) - Lipid Panel 5. Essential hypertension cont med - Comprehensive Metabolic Panel (CMP) - CBC and Differential - Thyroid Stimulating Hormone (TSH), with Reflex - Uric Acid 6. Chronic renal failure, stage 3b check labs - Ferritin - Iron and Total Iron Binding Capacity (Iron/TIBC) 7. Gastroesophageal reflux disease, unspecified whether esophagitis present - Comprehensive Metabolic Panel (CMP) - CBC and Differential I obtained verbal consent from the patient or their proxy to record this visit for purposes of producing a draft of the encounter documentation. documented in this encounter Plan of Treatment Upcoming Encounters Date Type Department Care Team (Late st Contact Info) Description 02/18/2025 7:30 AM EST Office Visit [facility] [address] [place] [address] 3rd Floor, [address] [place] [address] Rodriguez Brooke DO [address] [place] [address] [place] [address] 06/07/2025 8:30 AM EDT Office Visit [facility] [address] [place] [address] Erasmo Britt MD [address] [place] [address] [email or web address] Scheduled Orders Name Type Priority Associated Diagnoses Orde r Schedule Testosterone, Total and Free, Equilibrium Dialysis/Mass Spectrometry Lab Routine Testosterone deficiency Expected: 12/31/2024, Expires: 12/31/2025 Prostate Specific Antigen (PSA), Monitoring Lab Routine Testosterone deficiency Expected: 12/31/2024, Expires: 12/31/2025 Comprehensive Metabolic Panel (CMP) Lab Routine Pure hypercholesterolemia Essential hypertension Gastroesophageal reflux disease, unspecified whether esophagitis present Expected: 05/08/2025, Expires: 09/10/2025 CBC and Differential Lab Routine Essential hypertension Gastroesophageal reflux disease, unspecified whether esophagitis present Expected: 05/08/2025, Expires: 09/10/2025 Lipid Panel Lab Routine Pure hypercholesterolemia Expected: 05/08/2025, Expires: 09/10/2025 Thyroid Stimulating Hormone (TSH), with Reflex Lab Routine Essential hypertension Expected: 05/08/2025, Expires: 09/10/2025 Ferritin Lab Routine Chronic renal failure, stage 3b Expected: 05/08/2025, Expires: 09/10/2025 Iron and Total Iron Binding Capacity (Iron/TIBC) Lab Routine Chronic renal failure, stage 3b Expected: 05/08/2025, Expires: 09/10/2025 Uric Acid Lab Routine Essential hypertension Expected: 05/08/2025, Expires: 12/31/2025 documented as of this encounter Visit Diagnoses Diagnosis Routine general medical examination at a health care facility- Primary Need for prophylactic vaccination and inoculation against influenza Testosterone deficiency Other testicular hypofunction Pure hypercholesterolemia Essential hypertension Unspecified essential hypertension Chronic renal failure, stage 3b Gastroesophageal reflux disease, unspecified whether esophagitis present documented in this encounter Additional Health Concerns Assessment Noted Time PHQ-2 Depression Total Score: 0 01/01/20 25 11:57 AM EST documented as of this encounter Care Teams Turner Machine Relationship Specialty Start Date End Date Erasmo Britt MD [address] [place] [address] [email or web address] PCP - General Internal Medicine 02/20/19 Erasmo Britt MD [address] [place] [address] [email or web address] Insurance Assigned Provider 05/14/23 Nisha Tatum MD [address] [place] [address] [email or web address] Hematology and Oncology 05/18/19 Rajinder Cody MD [address] [address] [email or web address] 05/18/19 Hira Saxena DO [address] [place] [address] [email or web address] Hematology and Oncology 02/14/24 documented as of this encounter Additional Source Comments The information contained in this document represents components of the legal health record. It is not the complete legal health record.[facility]
--- OUTSIDE RECORDS SUMMARY | 2025-01-02 07:59 | XMS_ITS | Encounter Summary ---
Author Organization [facility] Address [address] [place] [address] Phone Care Team Providers Care Machine Set Up Name Role Phone Erasmo Britt MD Unavailable Erasmo Britt MD Primary Care Provider [phone] Nisha Tatum MD Unavailable [phone] Rajinder Cody MD Unavailable Hira Saxena DO Unavailable [phone] Encounter Details Date Type Department Care Team (Late st Contact Info) Description 03/13/2024 Transcribe Orders [facility] Specimen Processing [address] [place] [address] Erasmo Britt MD [address] [place] [address] [email or web address] Social History Tobacco Use Types Packs/Day Years Used Date Smoking Tobacco: Former Cigarettes 1.5 26 1 95 - 1977 Smokeless Tobacco: Never Alcohol Use [...] Description 02/18/2025 7:30 AM EST Office Visit [facility] [address] [place] [address], [address] [place] [address] Rodriguez Brooke DO [address] [place] [address] 06/07/2025 8:30 AM EDT Office [facility] Internal Medicine [address] [place] [address] Erasmo Britt MD [address] [place] [address] [email or web address] documented as of this encounter Visit Diagnoses Not on filedocumented in this encounter Additional Health Concerns Assessment Noted Time PHQ-2 Depression Total Score: 2 12/20/19 24 9:01 AM EST documented as of this encounter Care Teams Machine Set Up Relationship Specialty Start Date End Date Erasmo Britt MD [address] [place] [address] [email or web address] PCP - General Internal Medicine 02/20/19 Erasmo Britt MD [address] [place] [address] [email or web address] Insurance Assigned Provider 05/14/23 Nisha Tatum MD [address] [place] [address] [email or web address] Hematology and Oncology 05/18/19 Rajinder Cody MD [address] [address] [email or web address] 05/18/19 Hira Saxena DO [address] [place] [address] [email or web address] Hematology and Oncology 02/14/24 documented as of this encounter Additional Source Comments The information contained in this document represents components of the legal health record. It is not the complete legal health record.[facility]
--- OUTSIDE RECORDS SUMMARY | 2025-01-02 07:59 | XMS_ITS | Encounter Summary ---
Author Organization [facility] Address [address] [place] [address] Phone Care Team Providers Care Doctor Of Podiatric Medicine Name Role Phone Erasmo Britt MD Unavailable [phone] Erasmo Britt MD Primary Care Provider [phone] Nisha Tatum MD Unavailable [phone] Rajinder Cody MD Unavailable [phone] Hira Saxena DO Unavailable [phone] Encounter Details Date Type Department Care Team (Late st Contact Info) Description 12/30/2023 Procedure Pass [facility], [address] [address] Social History Tobacco Use Types Packs/Day Years [...] Description 02/18/2025 7:30 AM EST Office Visit [facility] [address] [facility] 3rd Floor, [address] [place] [address] Rodriguez Brooke DO [address] [facility] [address] [place] [address] 06/07/2025 8:30 AM EDT Office Visit [facility] Internal Medicine [address] [place] [address] Erasmo Britt MD [address] [place] [address] documented as of this encounter Visit Diagnoses Not on filedocumented in this encounter Additional Health Concerns Assessment Noted Time PHQ-2 Depression Total Score: 2 12/20/19 24 9:01 AM EST documented as of this encounter Care Teams Doctor Of Podiatric Medicine Relationship Specialty Start Date End Date Erasmo Britt MD [address] [place] [address] PCP - General Internal Medicine 02/20/19 Erasmo Britt MD [address] [place] [address] [email or web address] Insurance Assigned Provider 05/14/23 Nisha Tatum MD [address] [place] [address] [email or web address] Energy Hematology and Oncology 05/18/19 Rajinder Cody MD [address] [address] [email or web address] 05/18/19 Hira Saxena DO [address] [place] [address] [email or web address] Hematology and Oncology 02/14/24 documented as of this encounter Additional Source Comments The information contained in this document represents components of the legal health record. It is not the complete legal health record.[facility]
--- OUTSIDE RECORDS SUMMARY | 2025-01-02 07:59 | XMS_ITS | Encounter Summary ---
Author Organization [facility] Address [address] [place] [address] Phone Care Team Providers Care Pickling Machine Operator Name Role Phone Erasmo Britt MD Unavailable [phone] Erasmo Britt MD Primary Care Provider [phone] Nisha Tatum MD Unavailable [phone] Rajinder Cody MD Unavailable [phone] Hira Saxena DO Unavailable [phone] Encounter Details Date Type Department Care Team (Late st Contact Info) Description 12/31/2024 Documentation [facility] Internal Medicine [address] [place], [place] [phone] Erasmo Britt MD [address] [place], [place] [phone] [email or web address] Social History Tobacco Use Types Packs/Day Years [...] AM EST documented as of this encounter Progress Notes * Robin Lozada MA - 12/31/2024 9:24 AM EST HM updated documented in this encounter Plan of Treatment Upcoming Encounters Date Type Department Care Team (Late st Contact Info) Description 02/18/2025 7:30 AM EST Office Visit [facility] [address] [place] [address], [address] [place] [address] Rodriguez Brooke DO [address] [place] [address] 06/07/2025 8:30 AM EDT Office Visit [facility] [place] Internal Medicine [address] [place] [address] Erasmo Britt MD [address] [place] [address] documented as of this encounter Procedures Procedure Name Priority Date/Time Associated Diagnosis Comments OUTSIDE POTASSIUM LEVEL Routine 10/10/2024 OUTSIDE URINE MALB/CRE RATIO Routine 10/10/2024 OUTSIDE SERUM CREATININE LEVEL Routine 10/10/2024 documented in this encounter Results * Outside Potassium Level (10/10/2024) Potassium level - External 4.6 3.4 - 5.0 mmol/L EXTERNAL NON-INTERFACED REF LAB [facility] Provider MD LAB BLOOD ORDERABLES Catherine l Result Performing Organization Address [facility] de Phone Number EXTERNAL NON-INTERFACED REF LAB * Outside Urine MALB/Cre Ratio (10/10/2024) Microalbumin/Cr eatinine Ratio, urine - External 220.7 EXTERNAL NON-INTERFACED REF LAB [facility] Provider MD LAB BLOOD ORDERABLES Catherine l Result Performing Organization Address [facility] de Phone Number EXTERNAL NON-INTERFACED REF LAB * (ABNORMAL) Outside Serum Creatinine Level (10/10/2024) Creatinine, serum - External 1.56(A) 0.8 - 1.3 mg/dL EXTERNAL NON-INTERFACED REF LAB [facility] Provider MD LAB BLOOD ORDERABLES Catherine l Result Performing Organization Address [facility] de Phone Number EXTERNAL NON-INTERFACED REF LAB documented in this encounter Visit Diagnoses Not on filedocumented in this encounter Additional Health Concerns Assessment Noted Time PHQ-2 Depression Total Score: 0 01/01/20 25 11:57 AM EST documented as of this encounter Care Teams Pickling Machine Operator Relationship Specialty Start Date End Date Erasmo Britt MD [address] [place] [address] [email or web address] PCP - General Internal Medicine 02/20/19 Erasmo Britt MD [address] [place] [address] [email or web address] Insurance Assigned Provider 05/14/23 Nsiha Tatum MD [address] [place] [address] [email or web address] [email or web address] 05/18/19 Rajinder Cody MD [address] [place] [address] [email or web address] 05/18/19 Hira Saxena DO [address] [place] [address] [email or web address] Hematology and Oncology 02/14/24 documented as of this encounter Additional Source Comments The information contained in this document represents components of the legal health record. It is not the complete legal health record.[facility]
--- OUTSIDE RECORDS SUMMARY | 2025-01-02 08:00 | XMS_ITS | Clinical Summary ---
Author Organization [facility]. Address [address] [address] Phone Care Team Providers Care Maintenance Shop Technician Name Role Phone Erasmo Britt MD Primary Care Provider [phone] Allergies Active Allergy Reactions Criticality Noted Date [...] capsule 3 01/08/2024 Active ergocalciferol 1.25 MG (82584 UT) capsule Take 1 capsule (50,000 Units total) by mouth every 30 (thirty) days 3 capsule 1 10/16/2024 Active Jardiance 10 MG tablet TAKE ONE TABLET BY MOUTH EVERY MORNING 90 tablet 3 10/18/2024 Active Active Problems Problem Noted Date Diagnosed Date Pulmonary hypertension 06/26/2024 Stage 3b chronic kidney disease 01/12/2023 Type [...] Encounters Date Type Department Care Team Description 10/18/2024 [facility]ill [facility] [address] [address] Rajinder Cody MD 10/16/2024 3:15 PM EDT Office Visit [facility] [address] [phone] Rajinder Cody MD Stage 3b chronic kidney disease (HCC) (Primary Dx); Type 2 diabetes mellitus with diabetic chronic kidney disease (HCC); Renal osteodystrophy from Last 3 Months Immunizations Immunization Administration [...] Years Used Date Smoking Tobacco: Former Cigarettes 3 Q uit: 02/13/1977 Comments:Smoking History Inf o:Every [...] Sign Reading Time Taken Comments Blood Pressure 146/72 10/16/2024 3:13 PM EDT Pulse 88 10/16/2024 3:13 PM EDT Temperature - - Respiratory Rate - - Oxygen Saturation 98% 10/16/2024 3:13 PM EDT Inhaled Oxygen Concentration - - Weight 85.6 kg (188 lb 12.8 oz) 10/16/2024 3:13 PM EDT Height 172.7 cm (5' 8 ) 10/21/2020 2:00 PM EDT Body Mass Index 28.71 10/21/2020 2:00 PM EDT Plan of Treatment Upcoming Encounters Date Type Department Care Team (Late st Contact Info) Description 07/16/2025 2:15 PM EDT Office Visit [facility] [address] [place] [phone] Rajinder Cody MD [address] [place] [address] Health Maintenance Due Date Last Done Comments [...] Procedure Name Priority Date/Time Associated Diagnosis Comments ALBUMIN, URINE, RANDOM Routine 10/10/2024 12:52 PM EDT CREATININE, BLOOD Routine 10/10/2024 12: 52 PM EDT BUN Routine 10/10/2024 12:52 PM EDT ELECTROLYTE PANEL Routine 10/10/2024 12: 52 PM EDT PTH, INTACT (HC) Routine 10/10/2024 12:5 2 PM EDT CBC AND DIFFERENTIAL Routine 10/10/2024 12:52 PM EDT CALCIUM Routine 10/10/2024 12:52 PM EDT Stage 3b chronic kidney disease (HCC) Renal osteodystrophy Essential hypertension ALBUMIN Routine 10/10/2024 12:52 PM EDT Stage 3b chronic kidney disease (HCC) Renal osteodystrophy Essential hypertension MAGNESIUM Routine 10/10/2024 12:52 PM EDT Stage 3b chronic kidney disease (HCC) Renal osteodystrophy Essential hypertension PHOSPHATE ( PHOSPHORUS) Routine 10/10/2024 12:52 PM EDT Stage 3b chronic kidney disease (HCC) Renal osteodystrophy Essential hypertension VITAMIN D 25 HYDROXY Routine 10/10/2024 12:52 PM EDT Stage 3b chronic kidney disease (HCC) Renal osteodystrophy Essential hypertension PROTEIN / CREATININE RATIO, URINE Routine 10/10/2024 12:52 PM EDT Stage 3b chronic kidney disease (HCC) Renal osteodystrophy Essential hypertension URINALYSIS WITH MICROSCOPIC Routine 10/10/2024 12:52 PM EDT Stage 3b chronic kidney disease (HCC) Renal osteodystrophy Essential hypertension HEMOGLOBIN A1C Routine 01/11/2022 11:21 AM EST Stage 3a chronic kidney disease (HCC) Essential hypertension from Last 3 Months or Most Recently Relevant to Health Maintenance Results * (ABNORMAL) Creatinine (10/10/2024 12:52 PM EDT) [facility] Creatinine Serum 1.56(H) 0.5 - 1.4 mg/dL See order comments eGFR (Calc) 43 See lindae r comments Comment: Chronic Kidney Disease: Estimated GFR < 60 mL/min/1.73m2 Severe Kidney Disease: Estimated GFR < 15 mL/min/1.73m2 10/10/2024 12:5 2 PM EDT 10/10/2024 12:52 PM EDT us Rajinder Cody MD LAB BLOOD ORDERABLES Final Re sult [place] See order comments [place] [address] * (ABNORMAL) PTH, Intact (10/10/2024 12:52 PM EDT) Parathyroid Hormone, Intact 113.4(H) 8.7 - 77.1 pg/mL See order comments 10/10/2024 12:5 2 PM EDT 10/10/2024 12:52 PM EDT us Rajinder Cody MD LAB BLOOD ORDERABLES Final Re sult Performing Organization Address [facility] Phone Number [place] See order comments [place] [address] * (ABNORMAL) Protein, Total, Random Urine w/Creatinine (Protein/Creat Ratio) (10/10/2024 12:52 PM EDT) Protein Urine Random 30(H) <12 mg/dL See order comments Protein/Creati nine Ratio, Urine 0.34(H) <0.2 See order comments Comment: The spot urine protein:creatinine ratio may increase to 0.3 during normal . Urine specimen (specimen) Urine specimen obtained by clean catch procedure / Unknown 10/10/2024 12:52 PM EDT 10/10/2024 12:52 PM EDT us Rajinder Cody MD LAB URINE ORDERABLES Final Re sult Performing Organization Address [facility] Phone [facility] See order comments [place] [address] * (ABNORMAL) Albumin, urine, random (10/10/2024 12:52 PM EDT) Creatinine, Urine 87.41 mg/dL Se e order comments Urine Microalbumin 193.0 mg/L See order comments Microalbumin/Crea tinine Ratio 220.7(H) <30 ug/mg cr See order comments Comment: Albumin/Creatinine Ratio Reference Ranges: Normal: < 30 ug/mg creatinine Microalbuminuria: 30 - 300 ug/mg creatinine Clinical Albuminuria: > 300 ug/mg creatinine 10/10/2024 12:5 2 PM EDT 10/10/2024 12:52 PM EDT us Rajinder Cody MD LAB URINE ORDERABLES Final Re sult Performing Organization Address [facility] de Phone Number [place] See order comments [place] [address] * Vitamin D 25 Hydroxy (10/10/2024 12:52 PM EDT) Vitamin D, 25-Hydroxy 65.3 >30 ng/mL See order comments Comment: Health Based Reference Values* < 20 ng/mL Deficient 20-30 ng/mL Insufficient > 30 ng/mL Sufficient *Rashel MCLAUGHLIN. N Engl J Med. 2007;357:266-280 There is no well-established upper level of normal vitamin D levels. Some laboratories use 50 ng/mL as an upper limit of normal. However, toxicity is patient-dependent and may occur at any level. Careful correlation with the patient's presentation is necessary and, if there is concern for vitamin D toxicity, treatment should be considered irrespective of the serum level. Care must be taken in interpreting Vitamin D results from different laboratories and methodologies. Published data demonstrated that results from patients undergoing hemodialysis may show a negative bias when tested with various automated 25-OH vitamin D assays when compared to LC-MS/MS. When testing samples from patients whose predominant form of Vitamin D is Vitamin D2, such as patients receiving Vitamin D2 supplementation, results that are subtherapeutic should be confirmed with another method such as LC-MS/MS. Blood specimen (specimen) Venous blood / Unknown 10/10/2024 12:52 PM EDT 10/10/2024 12:52 PM EDT Rajinder Cody MD LAB BLOOD ORDERABLES Final Re sult Performing Organization Address [facility] de Phone Number [place] See order comments [place] [address] * (ABNORMAL) Urinalysis with microscopic (10/10/2024 12:52 PM EDT) Color Urine Yellow See orde r comments Appearance Urine Clear See order comments pH Urine 5.5 5.0 - 9.0 See order comments Glucose Urine >=1000(A) Negative mg/dL See order comments Blood, Urine Negative Negative See ord er comments Specific [place] Urine 1.025 1.005 - 1.025 See order comments Protein Urine 30 (1+)(A) Neg-Trace mg/dL See order comments Ketones, Urine Negative Negative mg/dL See order comments Nitrite, Urine Negative Negative See o rder comments Leukocyte Esterase Urine Negative Negative See order comments RBC, Urine 0-2 0 - 2 /HPF See orde r comments WBC 0-5 0 - 5 /HPF See order comments Squamous Epithelial, Urine 0-2 0 - 2 /HPF See order comments Bacteria, Urine None Seen None Seen See order comments Hyaline Casts, Urine 0-2 0 - 2 /LPF See order comments Urine specimen (specimen) Urine specimen obtained by clean catch procedure / Unknown 10/10/2024 12:52 PM EDT 10/10/2024 12:52 PM EDT us Rajinder Cody MD LAB URINE ORDERABLES Final Re sult [place] See order comments [place] [address] * (ABNORMAL) CBC and Differential (10/10/2024 12:52 PM EDT) WBC 8.3 4.8 - 10.8 X10*3/uL See order comments RBC 3.95(L) 4.60 - 5.80 X10*6/uL See order comments Hgb 13.2(L) 14.0 - 18.0 g/dl See order comments Hematocrit 38.8(L) 42.0 - 52.0 % See order comments MCV 98.2(H) 80.0 - 98.0 fL See order comments MCH 33.4(H) 27.0 - 33.0 pg See order comments MCHC 34.0 31.0 - 36.0 g/dl See order comments RDW 13.8 11.0 - 16.0 % See order comments Platelets 349 160 - 400 X10*3/uL See order comments MPV 10.1 9.4 - 12.4 fL See order comments Neutrophils % Auto 60.7 45 - 73 % See order comments Immature Granulocytes 0.4 0.0 - 0.4 % See order comments Lymphocytes Relative 24.5 20 - 40 % See order comments Monocytes 11.8(H) 2 - 11 % See order comments Eosinophils Relative 1.8 0 - 4 % See order comments Basophils Relative 0.8 0 - 2 % See order comments nRBC Count 0.0 0.0 - 0.2 /100WBC See order comments Neutrophils Absolute 5.0 2.0 - 8.3 x10*3/uL See order comments Immature Grans (Absolute) 0.03 0.00 - 0.03 X10*3/uL See order comments Lymphocytes Absolute 2.0 1.2 - 4.9 X10*3/uL See order comments Monocytes Absolute 1.0 0.1 - 1.2 X10*3/uL See order comments Eosinophils Absolute 0.2 0.0 - 0.4 X10*3/uL See order comments Basophils Absolute 0.1 0.0 - 0.2 X10*3/uL See order comments NRBC Absolute 0.000 0.0 - 0.012 X10*3/uL See order comments 10/10/2024 12:5 2 PM EDT 10/10/2024 12:52 PM EDT Rajinder Cody MD LAB BLOOD ORDERABLES Final Re sult Performing Organization Address [facility] Co de Phone Number [place] See order comments [place] [address] * (ABNORMAL) BUN (10/10/2024 12:52 PM EDT) BUN 30(H) 9 - 16 mg/dL See order comments 10/10/2024 12:5 2 PM EDT 10/10/2024 12:52 PM EDT Rajinder Cody MD LAB BLOOD ORDERABLES Final Re sult Performing Organization Address [facility] Co de Phone Number [place] See order comments [place] [address] * Phosphorus (10/10/2024 12:52 PM EDT) Phosphorus, Serum 3.1 2.7 - 4.5 mg/dL See order comments Blood specimen (specimen) Venous blood / Unknown 10/10/2024 12:52 PM EDT 10/10/2024 12:52 PM EDT us Rajinder Cody MD LAB BLOOD ORDERABLES Final Re sult Performing Organization Address [facility] Co de Phone Number [place] See order comments [place] [address] * Magnesium (10/10/2024 12:52 PM EDT) Magnesium 2.0 1.6 - 2.6 mg/dL See order comments Blood specimen (specimen) Venous blood / Unknown 10/10/2024 12:52 PM EDT 10/10/2024 12:52 PM EDT us Rajinder Cody MD LAB BLOOD ORDERABLES Final Re sult Performing Organization Address [facility] Phone Number [place] See order comments [place] [address] * Calcium (10/10/2024 12:52 PM EDT) Calcium 9.4 8.4 - 10.2 mg/dL See order comments Blood specimen (specimen) Venous blood / Unknown 10/10/2024 12:52 PM EDT 10/10/2024 12:52 PM EDT us Rajinder Cody MD LAB BLOOD ORDERABLES Final Re sult Performing Organization Address [facility] de Phone Number [place] See order comments [place] [address] * Albumin (10/10/2024 12:52 PM EDT) Albumin 4.2 3.5 - 5.0 g/dL See order comments Blood specimen (specimen) Venous blood / Unknown 10/10/2024 12:52 PM EDT 10/10/2024 12:52 PM EDT us Rajinder Cody MD LAB BLOOD ORDERABLES Final Re sult Performing Organization Address [facility] Co de Phone Number [place] See order comments [place] [address] * (ABNORMAL) Electrolyte panel (10/10/2024 12:52 PM EDT) Sodium 142 135 - 145 mmol/L See order comments Potassium 4.6 3.3 - 5.1 mmol/L See order comments Chloride 109(H) 96 - 108 mmol/L See order comments Bicarbonate (CO2) 26 22 - 29 mmol/L See order comments Anion Gap 12 12 - 20 See order comments 10/10/2024 12:5 2 PM EDT 10/10/2024 12:52 PM EDT Rajinder Cody MD LAB BLOOD ORDERABLES Final Re sult [facility] See order comments [place] [address] * Hemoglobin A1c (01/11/2022 11:21 AM EST) [...] average glucose, using the formula of the [id number] Average Glucose study (ADAG), Diabetes Care, Vol.31,#8, Sep. 2007 Blood specimen (specimen) Venous blood / Unknown 01/11/2022 11:21 AM EST 01/11/2022 11:21 AM EST Rajinder Cody MD LAB BLOOD ORDERABLES Final Re sult from Last 3 Months or Most Recently Relevant to Health Maintenance Insurance [facility] Medicare [facility] Medicare Care Teams Maintenance Shop Technician Relationship Specialty Start Date End Date Erasmo Britt MD [address] [place] [id number] PCP - General 02/18/20
--- OUTSIDE RECORDS SUMMARY | 2025-01-02 08:00 | XMS_ITS | Encounter Summary ---
Author Organization [facility] Address [address] [facility] [address] [facility] [address] [place] [address] Phone Care Team Providers Care Recoater Name Role Phone Erasmo Britt MD Primary Care Provider [phone] Reason for Visit * Reason Comments Med Refill Encounter Details Date Type Department Care Team (Late st Contact Info) Description 12/08/2020 Refill [facility] [address] [facility] [address] [place] [phone] Thien Jones MD [address] [place] [address] Social History Tobacco Use Types Packs/Day Years [...] Visit [facility] [address] [facility] [address] [place] [address] Rajinder Cody MD [address] [facility] [address] [place] [address] documented as of this encounter Visit Diagnoses Not on filedocumented in this encounter Care Teams Recoater Relationship Specialty Start Date End Date Erasmo Britt MD [address] [place] [address] PCP - General 02/18/20 documented as of this encounter
--- OUTSIDE RECORDS SUMMARY | 2025-01-02 08:00 | XMS_ITS | Clinical Summary ---
Author Organization [facility] ity Address [address] [place] [address] Care Team Providers Care Blow Molder Name Role Phone Unavailable Primary Care Provider [...] nts (1 - 1-dose 75+ series) 11/26/2015 Depression Screening 02/08/2024 COVID-19 Vaccine (1 - 2024-2 6 season) 2024 Influenza Vaccine (#1) 2024 HIB Vaccines Aged [...]
--- OUTSIDE RECORDS SUMMARY | 2025-01-02 08:00 | XMS_ITS | Clinical Summary ---
Author Organization [facility] Address [address] [place] [address] Phone Care Team Providers Care Inside Sales Person Name Role Phone Erasmo Britt MD Unavailable [phone] Erasmo Britt MD Primary Care Provider [phone] Nisha Tatum MD Unavailable Rajinder Cody MD Unavailable [phone] Hira Saxena DO Unavailable [phone] Allergies Active Allergy Reactions Criticality Noted Date Comments Chlorthalidone Headaches 07/22/2021 Moxifloxacin Headaches,Nausea and /or Vomiting 04/22/2017 Other reaction(s): Other (see comments) Sildenafil Headaches 04/22/2017 Other reaction(s): Other (see comments) Medications ergocalciferol (DRISDOL) 50,000 unit capsule Take 1.25 mcg by mouth once a week. 03/27/19 21 Active JARDIANCE 10 mg tablet Take 10 mg by mouth daily. 10/12/19 24 Active calcitriol (ROCALTROL) 0.25 MCG capsule Take 0.25 mcg by mouth every other day. Active lisinopril (PRINIVIL,ZESTRI L) 20 MG tabletIndication s:Benign essential hypertension Take 1 tablet (20 mg total) by mouth daily. 90 tablet 3 05/08/19 25 Active allopurinol (ZYLOPRIM) 100 MG tabletIndication s:Hyperuricemia TAKE TWO TABLETS BY MOUTH ONCE DAILY 180 tablet 3 05/18/19 25 Active atorvastatin (LIPITOR) 40 MG tabletIndication s:Hyperlipidemia TAKE ONE TABLET BY MOUTH ONCE DAILY 90 tablet 3 07/10/19 25 Active atenolol (TENORMIN) 25 MG tabletIndication s:Hypertension TAKE 1 TABLET BY MOUTH DAILY. 90 tablet 3 07/31/19 25 Active traMADoL (ULTRAM) 50 mg tabletIndication s:Chronic pain of left knee 1-2 TABLETS PO BID PRN LEFT KNEE PAIN 28 tablet 1 06/22/19 25 025 Discontinued predniSONE (DELTASONE) 10 MG tabletIndication s:Right sided sciatica Take 6 pills orally for 2 days, 5 pills for 2 days, 4 pills for 2 days, 3 pills for 2 days, 2 pills for 2 days then 1 pill for 2 days. 42 tablet 12/18/19 25 025 Discontinued Active Problems Problem Noted Date Diagnosed Date Right sided sciatica 12/17/2024 Assessment & Plan (12/17/2024 4:35 PM EST): With his history of MGUS would like to get an x-ray of the lumbar spine to look for signs of plasmacytoma to rule out or also compression fractures. Otherwise this looks like a lumbosacral sprain. Perhaps he had fallen asleep in the wrong position. Not always this there have to be a sentinel event. Will obtain the x-ray and a taper course of prednisone which will take down some of the pain. Heat to the area 20 minutes on 10 minutes off to the lumbar sacral area. Type 2 diabetes mellitus wit h stage [...] will also order a CT head at [facility] to rule out posterior stroke although [...] Encounters Date Type Department Care Team Description 12/31/2024 11:00 AM EST Office Visit [facility] [address] [place] [address] Erasmo Britt MD Routine general medical examination at a health care facility (Primary Dx); Need for prophylactic vaccination and inoculation against influenza; Testosterone deficiency; Pure hypercholesterolemia ; Essential hypertension; Chronic renal failure, stage 3b; Gastroesophageal reflux disease, unspecified whether esophagitis present 12/31/2024 Documentation [facility] [address] [place] [address] Erasmo Britt MD 12/27/2024 7:59 AM EST - 12/27/2024 11:59 PM EST Hospital Encounter [facility] [place] [address] Rodriguez Brooke DO Discharge Disposition: Home or Self Care 12/19/2024 11:41 AM EST - 12/19/2024 11:59 PM EST Hospital Encounter [facility] [address] Chris Abreu MD Discharge Disposition: Home or Self Care 12/17/2024 4:00 PM EST Office Visit [facility] [address] [place] [address] Chris Abreu MD Right sided sciatica (Primary Dx) 12/17/2024 Telephone [facility] [address] [place] [address] Erasmo Britt MD Leg Pain 10/24/2024 10:47 AM EDT - 10/24/2024 11:59 PM EDT Hospital Encounter [facility] [address] [facility] [place] [address] Erasmo Britt MD Discharge Disposition: Home or Self Care 10/12/2024 Orders Only [facility] [address] [place] [address] Alireza Hector MD 10/11/2024 Orders Only [facility] [address] [place] [address] Provider, MD Alireza 06/26/2024 Procedure Pass [facility] [place] [address] from Last 3 Months Immunizations Immunization Administration Dates Next Due COVID-19 (Pre-11/29) Moderna Vaccine, mRNA, PF 12/08/2020,04/13/2020,03/16/2020 INFLUENZA, SPLIT VIRUS, TRIV ALENT W/ PRESERVATIVE IM 2011,01/06/2011 Influenza High-Dose Quadriva lent Preservative Free IM 01/03/2023,12/22/2021,12/09/2020,11/11 Influenza High-Dose Trivalen t Preservative Free IM 12/31/2024,12/20/2023,12/01/2018,11/28,11/20/2015,11/05/2013,12/12/2012 Influenza Quadrivalent Prese rvative Free IM 11/07/2016 [...] F) 12/31/2024 10:51 AM EST Respiratory Rate 14 12/17/2024 3:57 PM EST Oxygen Saturation 96% 12/31/2024 10:51 AM EST Inhaled Oxygen Concentration - - Weight 81.5 kg (179 lb 9.6 oz) 12/31/2024 10:51 AM EST Height 172.7 cm (5' 8 ) 12/31/2024 10:51 AM EST Body Mass Index 27.31 12/31/2024 10:51 AM EST Plan of Treatment Upcoming Encounters Date Type Department Care Team (Late st Contact Info) Description 02/18/2025 7:30 AM EST Office Visit [facility] [address] [place] [address] [address]rd Floor, [address] [place] [address] Rodriguez Brooke DO [address] [facility] [address] [place] [address] 06/07/2025 8:30 AM EDT Office Visit [facility] [address] [place] [address] Erasmo Britt MD [address] [place] [address] [email or web address] Maintenance Due Date Last Done Comments ZOSTER VACCINES (2 of 3) 07/20/2011 05/25/2011 RSV VACCINE (1 - 1-dose 75+ series) 11/26/2015 DIABETIC EYE EXAM 07/20/2024 COVID-19 VACCINE ( - 2024- season) 2024 06/15/2021, 12/08/2020, 04/13/2020, Additional history exists HEMOGLOBIN A1C 04/23/2025 10/24/2024, 06/0 10/2024, 01/09/2024, Additional history exists BLOOD PRESSURE 06/30/2025 12/31/2024 CREATININE LEVEL 10/24/2025 10/24/2024, 04/2024, 10/10/2024, Additional history exists POTASSIUM LEVEL 10/24/2025 10/24/2024, 09/0 04/2024, 07/16/2024, Additional history exists DEPRESSION SCREENING 12/31/2025 12/31/2024 Adult Td,Tdap Booster 08/23/2031 08/22/2021, 008 PNEUMOCOCCAL VACCINES (50+ years) Completed 12/04/2019, 11/04/2014, 09/09/2006 INFLUENZA VACCINE Completed 12/31/2024, , 01/03/2023, Additional history exists HEPATITIS A VACCINES Aged Out No long [...] 8:4 0 AM EST Shortness of breath XR LUMBOSACRAL SPINE 2-3 VIEWS Routine 12/19/2024 11:56 AM EST Right sided sciatica MICROALBUMIN/CREATININ E RATIO, RANDOM URINE Routine 10/24/2024 10:59 AM EDT Type 2 diabetes mellitus with stage 3b chronic kidney disease, without long-term current use of insulin HEMOGLOBIN A1C Routine 10/24/2024 10:47 AM EDT Type 2 diabetes mellitus with stage 3b chronic kidney disease, without long-term current use of insulin LIPID PANEL Routine 10/24/2024 10:47 AM EDT Type 2 diabetes mellitus with stage 3b chronic kidney disease, without long-term current use of insulin COMPREHENSIVE METABOLIC PANEL (CMP) Routine 10/24/2024 10:47 AM EDT Essential hypertension Type 2 diabetes mellitus with stage 3b chronic kidney disease, without long-term current use of insulin OUTSIDE LAB Routine 10/10/2024 4:27 PM EDT OUTSIDE LAB Routine 10/10/2024 11:33 AM EDT BUN Routine 10/10/2024 11:27 AM EDT CREATININE WITH ESTIMATED GLOMERULAR FILTRATION RATE (EGFR) Routine 10/10/2024 11:27 AM EDT OUTSIDE POTASSIUM LEVEL Routine 10/10/2024 OUTSIDE URINE MALB/CRE RATIO Routine 10/10/2024 OUTSIDE SERUM CREATININE LEVEL Routine 10/10/2024 from Last 3 Months Results * (ABNORMAL) TTE COMPREHENSIVE (12/27/2024 8:40 AM EST) [facility] Body Surface Area 1.99 m2 Height 175 [...] DO CV ECHO ORDERABLES Final Resu lt * XR LUMBOSACRAL SPINE 2-3 VIEWS (12/19/2024 11:56 AM EST) Anatomical Region Laterality Modality L-spine Computed Radiogr aphy 12/20/2024 11:3 0 AM EST Impressions 12/20/2024 11:32 AM EST Alignment abnormalities and degenerative changes of the lumbar spine. No fracture or marrow replacing lesion. Narrative 12/20/2024 11:32 AM EST XR LUMBOSACRAL SPINE 2-3 VIEWS Referring clinician's provided indication for this examination in [facility]: Pain; mgus pos, 2 week right sided sciatica, ? signs of plasmacytoma or fractures COMPARISON: CT MYELOMA SURVEY FINDINGS: Dextroscoliosis centered at the thoracolumbar junction. Grade 1 anterolisthesis of L4 on L5. There is chronic anterior wedging of multiple lower thoracic vertebral bodies. Lumbar vertebral body heights are maintained. Mild multilevel degenerative changes with mild disc height loss, small endplate osteophytes, and facet arthropathy. Intact sacroiliac joints. Vascular calcifications. Procedure Note Balta Flores MD - 12/20/2024 XR LUMBOSACRAL SPINE 2-3 VIEWS Referring clinician's provided indication for this examination in [facility]:Pain; mgus pos, 2 week right sided sciatica, ? signs of plasmacytoma orfractures COMPARISON: CT MYELOMA SURVEY FINDINGS: Dextroscoliosis centered at the thoracolumbar junction. Grade 1anterolisthesis of L4 on L5. There is chronic anterior wedging of multiplelower thoracic vertebral bodies. Lumbar vertebral body heights aremaintained. Mild multilevel degenerative changes with mild disc heightloss, small endplate osteophytes, and facet arthropathy. Intact sacroiliacjoints. Vascular calcifications. IMPRESSION: Alignment abnormalities and degenerative changes of the lumbar spine. Nofracture or marrow replacing lesion. us Chris Abreu MD IMG XR SPINE Final Result * (ABNORMAL) Microalbumin/creatinine ratio, random urine (10/24/2024 10:59 AM EDT) URINE MICROALBUMIN 39.9(H) 0 - 2.3 mg/dL [facility] URINE CREATININE 105 mg/dL [facility] MICROALB/CRE RATIO 380.0(H) 0 - 20 mg/g Cre [facility] Urine (Urine) 10/24/2024 10: 59 AM EDT 10/24/2024 11:01 AM EDT us Erasmo Britt MD LAB URINE ORDERABLES Final Re sult [facility] [address] [place] [address] * (ABNORMAL) Comprehensive metabolic panel (10/24/2024 10:47 AM EDT) SODIUM 136 133 - 146 mmol/L [facility] POTASSIUM 4.2 3.3 - 5.1 mmol/L [facility] CHLORIDE 103 96 - 108 mmol/L [facility] CO2 21 21 - 35 mmol/L [facility] BUN 30(H) 6 - 19 mg/dL [facility] CREATININE 1.50 0.5 - 1.5 mg/dL [facility] GLUCOSE 115(H) 70 - 99 mg/dL [facility] ALBUMIN 4.3 3.9 - 4.8 g/dL [facility] TOTAL PROTEIN 8.0 6.5 - 8.0 g/dL [facility] CALCIUM 9.7 8.4 - 10.3 mg/dL [facility] ALKALINE PHOSPHATASE 82 39 - 117 U/L [facility] TOTAL BILIRUBIN 1.0 0.0 - 1.2 mg/dL [facility] AST 21 0 - 37 U/L [facility] ALT <5 0 - 40 U/L [facility] GLOBULIN 3.7 1 - 4.8 g/dL [facility] EGFR 46(L) >59 mL/min/1.7 3m2 [facility] Comment:Estimated glomerular filtration rate calculated using the CKD-EPI refit equation. ANION GAP 16 10 - 20 mmol/L [facility] Blood 10/24/2024 10:4 7 AM EDT 10/24/2024 10:53 AM EDT us Erasmo Britt MD LAB BLOOD BKR ORDERABLES Catherine l Result Performing Organization Address [facility] Co de Phone Number [address] [address] * (ABNORMAL) Hemoglobin A1c (10/24/2024 10:47 AM EDT) HEMOGLOBIN A1C 6.1(H) 4.3 - 5.8 % [facility] Blood 10/24/2024 10:4 7 AM EDT 10/24/2024 10:53 AM EDT us Erasmo Britt MD LAB BLOOD BKR ORDERABLES Catherine l Result [address] [address] * (ABNORMAL) Lipid panel (10/24/2024 10:47 AM EDT) HDL 44 mg/dL [facility] Comment: Interpretation <40 mg/dL: Low HDL cholesterol (major risk factor for CHD) Greater than or equal to 60 mg/dL: High HDL cholesterol ( negative risk factor for CHD) HDL - cholesterol is affected by a number of factors, e.g. smoking, excerise, hormones, sex and age. CHOLESTEROL 111 0 - 240 mg/dL [facility] TRIGLYCERIDES 94 30 - 160 mg/dL [facility] LDL 48(L) 50 - 129 mg/dL [facility] Comment: LDL levels in terms of risk for coronary heart disease: <100 mg/dL: Optimal 100-129 mg/dL: Near or above optimal 130-159 mg/dL: Borderline high 160-189 mg/dL: High >190 mg/dL: Very High CARDIAC RISK RATIO 2.5(L) 3.4 - 5.0 C [facility] Blood 10/24/2024 10:4 7 AM EDT 10/24/2024 10:53 AM EDT Result [facility] Erasmo Britt MD LAB BLOOD BKR ORDERABLES Catherine l Result Performing Organization Address [facility]/ZIP Co de Phone Number [address] [address] * Outside Lab (10/10/2024 4:27 PM EDT) Only the most recent of2 resultswithin the time period is included. [facility] Provider MD LAB BLOOD BKR ORDERABLES Final Result * Creatinine/eGFR (10/10/2024 11:27 AM EDT) [facility] Provider MD LAB BLOOD BKR ORDERABLES Final Result * BUN (10/10/2024 11:27 AM EDT) [facility] Provider MD LAB BLOOD BKR ORDERABLES Final Result * Outside Potassium Level (10/10/2024) Potassium level - External 4.6 3.4 - 5.0 mmol/L EXTERNAL NON-INTERFACED REF LAB Result [facility] Provider MD LAB BLOOD ORDERABLES Catherine l Result EXTERNAL NON-INTERFACED REF LAB * Outside Urine MALB/Cre Ratio (10/10/2024) Microalbumin/Cr eatinine Ratio, urine - External 220.7 EXTERNAL NON-INTERFACED REF LAB Historical Provider MD LAB BLOOD ORDERABLES Catherine l Result EXTERNAL NON-INTERFACED REF LAB * (ABNORMAL) Outside Serum Creatinine Level (10/10/2024) Creatinine, serum - External 1.56(A) 0.8 - 1.3 mg/dL EXTERNAL NON-INTERFACED REF LAB Historical Provider MD LAB BLOOD ORDERABLES Catherine l Result EXTERNAL NON-INTERFACED REF LAB from Last 3 Months Insurance [place] PART [place] [id number] [facility] MEDEX SUPPLEMENT MEDICARE PART A & B [employer] MEDEX SUPPLEMENT MEDICARE PART A & B [employer] MEDEX SUPPLEMENT [place] MEDICARE PART A & B [facility] MEDEX SUPPLEMENT [place] MEDIC[place] PART A & B [employer] MEDEX SUPPLEMENT MEDICARE PART A & B Member Subscriber Plan / Payer ( fective 2005-Present) Name:Kj Hernandez Member ID:[id number] Relation to Subscriber:Self Name:Kj Hernandez Subscriber ID:[id number] Payer ID:[id number] Group ID:Not on file Type:Medicare Address: [facility] [employer] [facility] [employer] [facility] [address] [place] [phone] [employer] MEDEX SUPPLEMENT MEDICARE PART A & B [employer] MEDEX SUPPLEMENT MEDICARE PART A & B [employer] MEDEX SUPPLEMENT MEDICARE PART A & B [employer] MEDEX SUPPLEMENT Care Teams Inside Sales Person Relationship Specialty Start Date End Date Erasmo Britt MD [address] [place] [address] [email or web address] PCP - General Internal Medicine 02/20/19 Erasmo Britt MD [address] [place] [address] [email or web address] Insurance Assigned Provider 05/14/23 Nisha Tatum MD [address] [place] [phone] [email or web address] 05/18/19 Rajinder Cody MD [address] [place] [phone] [email or web address] 05/18/19 Hira Saxena DO [address] [place] [address] [email or web address] Hematology and Oncology 02/14/24 Additional Source Comments The information contained in this document represents components of the legal health record. It is not the complete legal health record.[facility]
--- OUTSIDE RECORDS SUMMARY | 2025-01-02 08:00 | XMS_ITS | Encounter Summary ---
Author Organization [facility] Address [address] [place] [address] Phone Care Team Providers Care Converting Supervisor Name Role Phone Erasmo Britt MD Unavailable [phone] Erasmo Britt MD Primary Care Provider [phone] Nisha Tatum MD Unavailable [phone] Rajinder Cody MD Unavailable [phone] Hira Saxena DO Unavailable [phone] Encounter Details Date Type Department Care Team (Late st Contact Info) Description 06/26/2024 Procedure Pass Echo [facility] [place], [place] [phone] Social History Tobacco Use Types Packs/Day Years [...] Description 02/18/2025 7:30 AM EST Office Visit [facility] [address] [place] [address] 3rd [facility], [address] [place] [address] [phone] Rodriguez Brooke DO [address] [place] [phone] 06/07/2025 8:30 AM EDT Office Visit [facility] Internal Medicine [address] [place] [address] [phone] Erasmo Britt MD [address] [place] [address] [phone] documented as of this encounter Visit Diagnoses Not on filedocumented in this encounter Additional Health Concerns Assessment Noted Time PHQ-2 Depression Total Score: 2 12/20/19 24 9:01 AM EST documented as of this encounter Care Teams Converting Supervisor Relationship Specialty Start Date End Date Erasmo Britt MD [address] [place] [phone] PCP - General Internal Medicine 02/20/19 Erasmo Britt MD [address] [place] [address] [email or web address] Insurance Assigned Provider 05/14/23 Nisha Tatum MD [address] [place] [phone] [email or web address] H[facility]ology and Oncology 05/18/19 Rajinder Cody MD [address] [phone] [email or web address] 05/18/19 Hira Saxena DO [address] [place] [phone] [email or web address] Hematology and Oncology 02/14/24 documented as of this encounter Additional Source Comments The information contained in this document represents components of the legal health record. It is not the complete legal health record.[facility]
--- OUTSIDE RECORDS SUMMARY | 2025-01-02 08:00 | XMS_ITS | Encounter Summary ---
Author Organization [facility] Address [address] [place] [address] [place] [address] Phone Care Team Providers Care Clerk Rating Name Role Phone Erasmo Britt MD Primary Care Provider [phone] Erasmo Britt MD Unavailable [phone] Erasmo Britt MD Primary Care Provider [phone] Nisha Tatum MD Unavailable [phone] Rajinder Cody MD Unavailable [phone] Hira Saxena DO Unavailable [phone] Encounter Details Date Type Department Care Team (Latest Contact Info) Description 11/07/2017 Transcribe Orders [facility] [address] [id number] Erasmo Britt MD [address] [place], [place] [phone] [email or web address] Impaired fasting glucose (Primary [...] Description 02/18/2025 7:30 AM EST Office Visit [facility] [address] [facility] 3rd Floor, [address] [place], [place] [phone] Rodriguez Brooke DO 22 [facility] [address] [place] [address] 06/07/2025 8:30 AM EDT Office Visit [facility] Internal Medicine 40 [place], [place] [phone] Erasmo Britt MD [address] [place], [place] [phone] [email or web address] documented as of this encounter Results * (ABNORMAL) Urinalysis (11/07/2017 8:27 AM EDT) COLOR Yellow Yellow [facility] CLARITY Clear [facility] GLUCOSE Negative Negative [facility] BILI Negative Negative [facility] KETONES Negative Negative [facility] SPECIFIC GRAVITY 1.025 1.005 - 1.030 [facility] BLOOD Negative Negative [facility] PH 5.5 5.0 - 8.0 [facility] Protein-UA 1+(A) Negative [facility] NITRITE Negative Negative [facility] Leukocyte esterase, ur Negative Negative [facility] Urine (Urine) 11/07/2017 8:2 7 AM EDT 11/07/2017 8:29 AM EDT us Erasmo Britt MD LAB URINE ORDERABLES Final Re sult [facility] [address] [place] [address] * Uric acid (11/07/2017 8:13 AM EDT) URIC ACID 4.8 2.4 - 7.0 mg/dL [facility] Blood 11/07/2017 8:13 AM EDT 11/07/2017 8:15 AM EDT us Erasmo Britt MD LAB BLOOD BKR ORDERABLES Catherine l Result [address] [address] * (ABNORMAL) Hemoglobin A1c (11/07/2017 8:13 AM EDT) HEMOGLOBIN A1C 6.9(H) 4.3 - 5.8 % [facility] Blood 11/07/2017 8:13 AM EDT 11/07/2017 8:15 AM EDT us Erasmo Britt MD LAB BLOOD BKR ORDERABLES Catherine l Result Performing Organization Address City/[facility] Co de Phone Number [address] [address] * (ABNORMAL) CBC (11/07/2017 8:13 AM EDT) WBC 9.74 3.40 - 11.20 K/uL [facility] RBC 4.07(L) 4.50 - 5.50 M/uL [facility] HGB 12.7(L) 13.0 - 17.0 g/dL [facility] HCT 38.2(L) 40.0 - 51.0 % [facility] PLT 323 130 - 400 K/uL [facility] MCV 93.9 79.0 - 98.0 fL [facility] MCH 31.2 27.0 - 34.8 pg [facility] MCHC 33.2 31.5 - 36.0 g/dL [facility] RDW 12.9 10.8 - 14.6 % [facility] MPV 9.9 9.4 - 12.4 [facility] NRBC 0.00 /100 WBCs [facility] ABSOLUTE NRBC 0.00 K/uL [facility] Blood 11/07/2017 8:13 AM EDT 11/07/2017 8:15 AM EDT us Erasmo Britt MD LAB BLOOD BKR ORDERABLES Catherine l Result Performing Organization Address City/[facility] Co de Phone Number [address] [address] * (ABNORMAL) Lipid panel (11/07/2017 8:13 AM EDT) HDL 44 mg/dL [facility] Comment: Interpretation: Risk Level Males Decreased >45 mg/dL Average 40-45 mg/dL Increased <40 mg/dL CHOLESTEROL 133 0 - 240 mg/dL [facility] TRIGLYCERIDES 146 30 - 160 mg/dL [facility] LDL 60 50 - 129 mg/dL [facility] Comment: LDL levels in terms of risk for coronary heart disease: <100 mg/dL: Optimal 100-129 mg/dL: Near or above optimal 130-159 mg/dL: Borderline high 160-189 mg/dL: High >190 mg/dL: Very High CARDIAC RISK RATIO 3.0(L) 3.4 - 5.0 C [facility] Blood 11/07/2017 8:13 AM EDT 11/07/2017 8:15 AM EDT us Erasmo Britt MD LAB BLOOD BKR ORDERABLES Catherine l Result Performing Organization Address City/[facility]/ZIP Co de Phone Number [address] [address] * (ABNORMAL) Comprehensive metabolic panel (11/07/2017 8:13 AM EDT) SODIUM 140 133 - 146 mmol/L [facility] POTASSIUM 4.2 3.3 - 5.1 mmol/L [facility] CHLORIDE 100 96 - 108 mmol/L [facility] CO2 26 21 - 35 mmol/L [facility] BUN 25(H) 6 - 19 mg/dL [facility] CREATININE 1.20 0.5 - 1.5 mg/dL [facility] GLUCOSE 114(H) 70 - 99 mg/dL [facility] ALBUMIN 4.2 3.9 - 4.8 g/dL [facility] TOTAL PROTEIN 7.9 6.5 - 8.0 g/dL [facility] CALCIUM 9.5 8.4 - 10.3 mg/dL [facility] ALKALINE PHOSPHATASE 98 39 - 117 U/L [facility] TOTAL BILIRUBIN 0.8 0.0 - 1.2 mg/dL [facility] AST 15 0 - 37 U/L [facility] ALT 6 0 - 40 U/L [facility] GLOBULIN 3.7 1 - 4.8 g/dL [facility] EGFR 58(L) >59 mL/min/1.7 3m2 [facility] Comment:If patient is black, multiply result by 1.159. Estimated glomerular filtration rate calculated using the CKD-EPI equation. ANION GAP 18 10 - 20 mmol/L [facility] Blood 11/07/2017 8:13 AM EDT 11/07/2017 8:15 AM EDT us Erasmo Britt MD LAB BLOOD BKR ORDERABLES Catherine l Result Performing Organization Address City/State/[facility] Co de Phone Number [address] [address] documented in this encounter Visit Diagnoses Diagnosis Impaired fasting glucose- Primary Pure hypercholesterolemia Essential hypertension, malignant Hyperuricemia Other abnormal blood chemistry documented in this encounter Care Teams Clerk Rating Relationship Specialty Start Date End Date Erasmo Britt MD [address] [place] [address] PCP - General 11/25/16 02/19/19 Erasmo Britt MD [address] [place] [address] PCP - General Internal Medicine 02/20/19 Erasmo Britt MD [address] [place] [address] [email or web address] Insurance Assigned Provider 05/14/23 Nisha Tatum MD [address] [place] [address] [email or web address] Hematology and Oncology 05/18/19 Rajinder Cody MD 100 [facility] 200 [place] [address] [email or web address] Nephrology 05/18/19 Hira Saxean DO [address] [place] [address] [email or web address] Hematology and Oncology 02/14/24 documented as of this encounter Additional Source Comments The information contained in this document represents components of the legal health record. It is not the complete legal health record.[facility]
--- OUTSIDE RECORDS SUMMARY | 2025-01-02 08:00 | XMS_ITS | Encounter Summary ---
Author Organization [facility] Address [address] [facility] [address] [place] [address] Phone Care Team Providers Care Chief Of Harbor Patrol Name Role Phone Erasmo Britt MD Unavailable [phone] Erasmo Britt MD Primary Care Provider Nisha Tatum MD Unavailable [phone] Rajinder Cody MD Unavailable [phone] Hira Saxena DO Unavailable [phone] Reason for Referral * MRI/CAT Scan - Closed Specialty Diagnoses / Procedures Referred By Renny barber Referred To Contact Radiology Diagnoses Unexplained weight loss Procedures MRI Pelvis (GI/) Erasmo Britt MD Phone: tel: fax: [email or web address] Referral ID Status Reason Start Date Expiration Date Visits Re quested Visits Authorized [id number] Closed 12/30/2023 12/29/2024 1 1 Encounter Details Date Type Department Care Team (Latest Contact Info) Description 12/30/2023 Ancillary Orders [facility] Internal Medicine [address] [place], [place] [phone] Erasmo Britt MD 40 [place], [place] [phone] Unexplained weight loss (Primary Dx) Social History [...] Description 02/18/2025 7:30 AM EST Office Visit [facility] [address] [place] [address] 3rd Floor, [address] [place] [address] Rodriguez Brooke DO 22 [facility] [address] [place] [address] 06/07/2025 8:30 AM EDT [facility] 40 [place] [address] Erasmo Britt MD 40 [place] [address] [email or web address] documented as of this encounter Results * [...] clinician's provided indication for this examination in Epic: unexplained weight loss, hx renal insufficiency, ordering [...] clinician's provided indication for this examination in [facility]:unexplained weight loss, hx renal insufficiency, ordering MD [...] lower pole renal cysts. Erasmo Britt MD IM MR PELVIS Final Result documented in this encounter Visit Diagnoses Diagnosis Unexplained weight loss- Primary Loss of weight Unexplained weight loss Loss of weight documented in this encounter Additional Health Concerns Assessment Noted Time PHQ-2 Depression Total Score: 2 12/20/19 24 9:01 AM EST documented as of this encounter Care Teams Chief Of Harbor Patrol Relationship Specialty Start Date End Date Erasmo Britt MD 40 [place] [address] [email or web address] PCP - General Internal Medicine 02/20/19 Erasmo Britt MD 40 [place] [address] [email or web address] Insurance Assigned Provider 05/14/23 Nisha Tatum MD [address] [place] [address] [email or web address] Hematology and Oncology 05/18/19 Rajinder Cody MD 100 [facility] 200 [place] [address] [email or web address] Nephrology 05/18/19 Hira Saxena DO [address] [place] [address] [email or web address] Hematology and Oncology 02/14/24 documented as of this encounter Additional Source Comments The information contained in this document represents components of the legal health record. It is not the complete legal health record.[facility]
--- OUTSIDE RECORDS SUMMARY | 2025-01-02 08:00 | XMS_ITS | Encounter Summary ---
Author Organization [facility] Address [address] [place] [address] Phone Care Team Providers Care Biomechanical Engineer Name Role Phone Erasmo Britt MD Unavailable [phone] Erasmo Britt MD Primary Care Provider [phone] Nisha Tatum MD Unavailable [phone] Rajinder Cody MD Unavailable [phone] Hira Saxena DO Unavailable [phone] Encounter Details Date Type Department Care Team (Late st Contact Info) Description 02/27/2024 Procedure Pass [facility], Ct Scan - [address] [address] Social History Tobacco Use Types Packs/Day Years [...] Description 02/18/2025 7:30 AM EST Office Visit [facility] [address] [facility] 3rd Floor, [address] [place] [address] Rodriguez Brooke DO [address] [place] [address] [place] [address] 06/07/2025 8:30 AM EDT Office Visit [facility] Internal Medicine 40 [place] [address] Erasmo Britt MD [address] [place] [address] documented as of this encounter Visit Diagnoses Not on filedocumented in this encounter Additional Health Concerns Assessment Noted Time PHQ-2 Depression Total Score: 2 12/20/19 24 9:01 AM EST documented as of this encounter Care Teams Biomechanical Engineer Relationship Specialty Start Date End Date Erasmo Britt MD [address] [place] [address] PCP - General Internal Medicine 02/20/19 Erasmo Britt MD [address] [place] [address] [email or web address] Insurance Assigned Provider 05/14/23 Nisha Tatum MD [address] [place] [address] [email or web address] Hematology and Oncology 05/18/19 Rajinder Cody MD [address] [address] [email or web address] 05/18/19 Hira Saxena DO [address] [place] [address] [email or web address] Hematology and Oncology 02/14/24 documented as of this encounter Additional Source Comments The information contained in this document represents components of the legal health record. It is not the complete legal health record.[facility]
--- OUTSIDE RECORDS SUMMARY | 2025-01-02 08:00 | XMS_ITS | Patient Health Record ---
Author Organization [facility] Address [address] [place] [address] Care Team Providers Care Solar Sales Estimator Name Role Phone Erasmo Britt MD Primary Care Provider Artemio Graves Unavailable [phone] Allergies No Known Allergies Reason For Referral No Information Medications Medication SIG (Take, Route, Frequency, Duration) Notes Start Date End Date Status Atorvastatin Calcium 40 mg Tablet 1 tablet Orally Once a day Active Allopurinol 100 MG Tablet 1 tablet Orall y Once a day Active Omeprazole 20 MG Capsule Delayed Release 1 capsule 30 minutes before morning meal Orally Once a day Active Atenolol 25 mg Tablet 1 tablet Orally On ce a day Active Quinapril HCl 20 MG Tablet 1 tablet Oral ly Once a day Active Ergocalciferol 1.25 MG (23317 UT) Capsule 1 capsule Orally once a week Active amLODIPine Besylate 5 MG Tablet 1 tablet Orally Once a day; Duration: 30 day(s) Active Calcitriol 0.25 MCG Capsule 1 capsule Or ally every other day Active Immunizations Vaccine Route Administration Date Status Comme nts Influenza Unknown 11/07/2016 Administered Social History Social History Drugs/Alcohol: Social Info Question Answer Notes Alcohol Screen Did you have a drink containing alcohol in the past year? Yes How often did you have a drink containing alcohol in the past year? 2 to 4 times a month (2 points) How many drinks did you have on a typical day when you were drinking in the past year? 1 or 2 drinks (0 point) How often did you have 6 or more drinks on one occasion in the past year? 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 Section Notes: Nonsmoker; occasional alcoho l Nonsmoker; occasional alcoho l Nonsmoker; occasional alcoho l Nonsmoker; occasional alcoho l Nonsmoker; occasional alcoho l Problems Problem Type SNOMED Code ICD Code Onset Dates Problem Status W/U Status Risk Notes Problem Screening for malignant neoplasm of colon (116403735) Encounter for screening for malignant neoplasm of colon (Z12.11) Active confirmed Problem History of adenomatous polyp of colon (032469489) History of adenomatous polyp of colon (Z86.010) Active confirmed Problem Weight loss (202307119) Weight loss (R63.4) Active confirmed Problem Gastroesophageal reflux disease without esophagitis (851254155) Gastroesophageal reflux disease without esophagitis (K21.9) Active confirmed Problem Gastroesophageal reflux disease (disorder) (600974669) Chronic GERD (K21.9) Active confirmed Plan Of Treatment Future Test Test Name Order Date COLONOSCOPY 11/05/2011 COLONOSCOPY 12/14/2016 UPPER GI ENDOSCOPY 03/28/2023 Insurance Providers Payer Name Payer Address Payer Phone Subscriber Number Group Number Insured Name Patient Relationship to Insured Coverage Start Date Coverage End Date MEDICARE OF [place] [address] [place] [address] [id number] ARTEMIO LIMON Self - patient is the insured [employer] ATT[employer] CLAIMS [address] [place] [phone] [id number] ARTEMIO LIMON Self - patient is the insured Medical (General) History Medical History History ICD Code GERD-EGD in 2005 with a small HH and edilma y minimal esophagitis-no Iniguez's Hx of tubular adenomas--most recent colonoscopy was 12/2011 with removal of 1 tubular adenoma--other tubular adenomas removed in 2003 and 2006 hyperlipidemia hypertension kidney stones-1988 Denies [place],DM,CVA,Lung disease,renal dise ase Neg. screening colonoscopy in 03/2017 Left bundle branch block-sees Dr. Llanos o Renal insufficiency Surgical History Surgery Date(Month/Year) Surgery for plonidal cyst 1967 Broken wrist 2018
--- OUTSIDE RECORDS SUMMARY | 2025-01-02 08:00 | XMS_ITS | Encounter Summary ---
Author Organization [facility] Address [address] [place] [address] Phone Care Team Providers Care Rib Knitter Name Role Phone Erasmo Britt MD Unavailable Erasmo Britt MD Primary Care Provider [phone] Nisha Tatum MD Unavailable [phone] Rajinder Cody MD Unavailable [phone] Hira Saxena DO Unavailable [phone] Encounter Details Date Type Department Care Team (Late st Contact Info) Description 01/03/2023 Procedure Pass [facility] [address] [place], [place] [phone] Social History Tobacco Use Types Packs/Day Years [...] Description 02/18/2025 7:30 AM EST Office Visit [facility] [address] [facility] 3rd Floor, [address] [place] [address] Rodriguez Brooke DO 22 [facility] [address] [place] [address] 06/07/2025 8:30 AM EDT Office Visit [facility] Internal Medicine 40 [place] [address] Erasmo Britt MD 40 [place] [address] documented as of this encounter Visit Diagnoses Not on filedocumented in this encounter Additional Health Concerns Assessment Noted Time PHQ-2 Depression Total Score: 0 01/04/20 23 8:24 AM EST documented as of this encounter Care Teams Rib Knitter Relationship Specialty Start Date End Date Erasmo Britt MD 40 [place] [address] PCP - General Internal Medicine 02/20/19 Erasmo Britt MD 40 [place] [address] [email or web address] Insurance Assigned Provider 05/14/23 Nisha Tatum MD [address] [place] [address] Hematology and Oncology 05/18/19 Rajinder Cody MD 100 [facility] 200 [place] [address] [email or web address] Nephrology 05/18/19 Hira Saxena DO [address] [place] [address] [email or web address] Hematology and Oncology 02/14/24 documented as of this encounter Additional Source Comments The information contained in this document represents components of the legal health record. It is not the complete legal health record.[facility]
--- OUTSIDE RECORDS SUMMARY | 2025-01-02 08:00 | XMS_ITS | Encounter Summary ---
Author Organization [facility] Address [address] [place] [address] Phone Care Team Providers Care Smokehouse Worker Name Role Phone Erasmo Britt MD Primary Care Provider [phone] Encounter Details Date Type Department Care Team (Late st Contact Info) Description 05/06/2020 Orders Only [facility] [address] [facility] 200 [place] [phone] ProviderAlireza MD Social History Tobacco Use Types [...] Visit [facility] [address] [facility] 204 [place] [address] Rajinder Cody MD [address] [place] [address] documented as of this encounter Procedures Procedure Name Priority Date/Time Associated Diagnosis Comments EXT RESULT ENTRY Routine 05/06/2020 documented in this encounter Results * EXT RESULT ENTRY (05/06/2020) us Historical Provider LAB BLOOD ORDERABLES Catherine l Result documented in this encounter Visit Diagnoses Not on filedocumented in this encounter Care Teams Smokehouse Worker Relationship Specialty Start Date End Date Erasom Britt MD 40 [place] [address] PCP - General 02/18/20 documented as of this encounter
--- OUTSIDE RECORDS SUMMARY | 2025-01-02 08:00 | XMS_ITS | Encounter Summary ---
Author Organization [facility] Address [address] [place] [address] Phone Care Team Providers Care Lay Ups Assembler Name Role Phone Erasmo Britt MD Unavailable [phone] Erasmo Britt MD Primary Care Provider Nisha Tatum MD Unavailable [phone] Rajinder Cody MD Unavailable [phone] Hira Saxena DO Unavailable [phone] Encounter Details Date Type Department Care Team (Late st Contact Info) Description 11/29/2023 Procedure Pass [facility], Ct Scan - [address] [address] Social History Tobacco Use Types Packs/Day Years [...] Description 02/18/2025 7:30 AM EST Office Visit [facility] [address] [facility] 3rd Floor, [address] [place] [address] Rodriguez Brooke DO 22 [facility] [address] [place] [address] [email or web address] 06/07/2025 8:30 AM EDT Office Visit [facility] Internal Medicine 40 [place] [address] Erasmo Britt MD 40 [place] [address] documented as of this encounter Visit Diagnoses Not on filedocumented in this encounter Additional Health Concerns Assessment Noted Time PHQ-2 Depression Total Score: 2 12/20/19 24 9:01 AM EST documented as of this encounter Care Teams Lay Ups Assembler Relationship Specialty Start Date End Date Erasmo Britt MD 40 [place] [address] [email or web address] PCP - General Internal Medicine 02/20/19 Erasmo Britt MD 40 [place] [address] Insurance Assigned Provider 05/14/23 Nisha Tatum MD [address] [place] [address] [email or web address] Hematology [email or web address] 05/18/19 Rajinder Cody MD 100 [facility] 200 [place] [address] [email or web address] Nephrology 05/18/19 Hira Saxena DO [address] [place] [address] [email or web address] Hematology and Oncology 02/14/24 documented as of this encounter Additional Source Comments The information contained in this document represents components of the legal health record. It is not the complete legal health record.[facility]
--- OUTSIDE RECORDS SUMMARY | 2025-01-02 08:00 | XMS_ITS | Encounter Summary ---
Author Organization [facility] Address [address] [facility] [address] [place] [phone] Phone Care Team Providers Care Contact Assembler Name Role Phone Erasmo Britt MD Unavailable [phone] Erasmo Britt MD Primary Care Provider [phone] Nisha Tatum MD Unavailable [phone] Rajinder Cody MD Unavailable [phone] Hira Saxena DO Unavailable Reason for Referral * MRI/CAT Scan - Closed Specialty Diagnoses / Procedures Referred By Renny barber Referred To Contact Radiology Diagnoses Unexplained weight loss Procedures MRI Abdomen Erasmo Britt MD Phone: tel: fax: [email or web address] Referral ID Status Reason Start Date Expiration Date Visits Re quested Visits Authorized [id number] Closed 12/30/2023 12/29/2024 1 1 Encounter Details Date Type Department Care Team (Latest Contact Info) Description 12/30/2023 Ancillary Orders [facility] Internal Medicine [address] [place], [place] [phone] Erasmo Britt MD [address] [place], [place] [phone] Unexplained weight loss (Primary Dx) Social History [...] Description 02/18/2025 7:30 AM EST Office Visit [facility] [address] [place] [address] [address] Floor, [address] [place] [address] Rodriguez Brooke DO [address] [facility] [address] [place] [phone] 06/07/2025 8:30 AM EDT Office Visit [facility] Internal Medicine [address] [place] [address] Erasmo Britt MD [address] [place] [address] [email or web address] Scheduled Orders Name Type Priority Associated Diagnoses [...] documented as of this encounter Care Teams Contact Assembler Relationship Specialty Start Date End Date Erasmo Britt MD [address] [place] [address] [email or web address] PCP - General Internal Medicine 02/20/19 Erasmo Britt MD [address] [place] [address] [email or web address] Insurance Assigned Provider 05/14/23 Nisha Tatum MD [address] [place] [phone] [email or web address] Hematology and Oncology 05/18/19 Rajinder Cody MD [address] [facility] [address] [place] [address] [email or web address] 05/18/19 Hira Saxena DO [address] [place] [address] [email or web address] Hematology and Oncology 02/14/24 documented as of this encounter Additional Source Comments The information contained in this document represents components of the legal health record. It is not the complete legal health record.[facility]
[2025-01-02 12:14] LABS: Prostate Specific Antigen 0.89 ng/mL (<0.05-4.0)
[2025-01-08 14:33] LABS: Testosterone, Free 45.0 pg/mL (30.0-135.0)
== END 2025-01-02 07:54 | disposition home or self-care (01) ==
LOC: HO.HMGCLDS 07:53
PROVIDERS: PCP Internal Medicine; Visit Provider Internal Medicine
DX: Z12.5 Encounter for screening for malignant neoplasm of prostate (principal); E34.9 Endocrine disorder, unspecified
CPT/HCPCS: 36415; 84153; 84402; 84403